=== PATIENT | female | born 1980 | race Caucasian/White ===

== ENCOUNTER → 2020-05-09 | Outpatient (CLI) | payer OTHER, SELFPAY ==
[2020-05-12 03:07] LABS: Chlamydia By Nucleic Acid AMP Negative (Negative)
[2020-05-12 13:53] LABS: Gonococcus By Nucleic Acid AMP Negative (Negative)
[2020-05-12 14:28] LABS: HPV Reflexed? NOT INDICATED
== END | disposition home or self-care (01) ==
LOC: LABSPEC 05-10 10:06
PROVIDERS: Visit Provider Obstetrics & Gynecology
DX: Z12.4 Encounter for screening for malignant neoplasm of cervix (principal); Z11.3 Encounter for screening for infections with a predominantly sexual mode of transmission
CPT/HCPCS: 87491; 87591; 88175; G0145

== ENCOUNTER 2020-08-11 02:12 | Outpatient (CLI) | payer OTHER, SELFPAY ==
[2020-08-11 02:30] VITALS: BP 127/76; PULSE 97
[2020-08-11 02:33] VITALS: BP 127/76; PULSE 101; TEMP 36.4; O2SAT 98
[2020-08-11 02:42] VITALS: BMI 23.8
[2020-08-11 03:15] LABS: Absolute Lymphocyte Count 0.77 X10^3/uL (0.83-4.51); Absolute Neutrophil Count 11.9 X10^3/uL (2.0-7.7); Basophil# 0.04 X10^3/uL; Basophil% 0.3 % (0-1); Eosinophil# 0.03 X10^3/uL; Eosinophils% 0.2 % (0-5); Hematocrit 27.8 % (37-47); Hemoglobin 9.4 g/dL (12.0-15.0); Lymphocyte # 0.77 X10^3/ul (4.0); Lymphocyte % 5.7 % (19-41); Mean Corp Hgb Conc 33.8 g/dL (32-36); Mean Corpuscular Hgb 30.6 pg (27.0-32.0); Mean Corpuscular Volume 90.6 fL (81-99); Monocyte% 5.9 % (0-10); NRBC Flagged by Analyzer 0 % (0-5); Neutrophil # 11.86 X10^3/uL (2.7-7.7); Neutrophil % 87.5 % (47-70); Platelet Count 285 K/mm3 (150-450); RBC Distribution Width CV 13.6 % (11.6-14.6); RBC Distribution Width SD 44.5 fl (35.1-43.9); Red Blood Count 3.07 M/mm3 (4.2-5.4); White Blood Count 13.6 K/mm3 (4.4-11.0)
[2020-08-11] MEDS: Lactated Ringers 1,000 ML 125 ML IV (03:30)
--- NOTE | 2020-08-11 04:28 | HP.PCM_ITS ---
History and Physical Date of Admission: 08/11/20 Complaint: Vaginal bleeding History of present illness: 39-year-old G1, P0 at 23 weeks and 2 days with MARIA DOLORES: 12/06/2020 by LMP arrives with vaginal bleeding. Patient has known multiple fibroids that have been bleeding throughout . Last ultrasound revealed degenerating fibroid. Patient states the bleeding has only slightly increased at times but mostly is consistent. Patient does have constant pressure and cramping that she has had throughout this with uterine fibroids. Denies dizziness, weakness. Denies headache, visual changes, nausea vomiting, chest pain, shortness of breath, right upper quadrant pain. Patient states good movement. Obstetrical complications: Fibroid uterus x5 with largest fibroid being 13 cm next largest fibroid being 9 cm with degenerating fibroid, baby with bilateral clubfeet, AMA Obstetric history G1: Current Past medical history: None Medications: None Past surgical history: Hearing aid placement Allergies: No known drug allergies Social: Denies smoking, alcohol, drug use Review of systems: Besides the above pertinent positives a full review of systems was performed and found to be negative Physical exam: Vital Signs Temp Pulse BP Pulse Ox 08/11/20 02:33 97.6 F L 101 H 127/76 H 98 08/11/20 02:30 97 127/76 H General: Normal-appearing no acute distress HEENT: Normocephalic atraumatic no cervical lymphadenopathy Cardiac: Regular rate and rhythm no murmurs rubs or gallops Respiratory: Clear to auscultation bilaterally no wheezes rales or crackles Abdomen: Palpable fibroid uterus measuring 31 weeks. Nontender, gravid. Positive bowel sounds no rebound tenderness or guarding. Pelvic: Normal external genitalia. Pelvic exam difficult with large fibroid pressing on the contours of the vagina. No palpable/fleshy fibroid or other signs of exposing fibroid noted. Cervix closed thick and high heart tones: 140/moderate variability/positive accelerations/early decelerations with few contractions [place]: Every 4 minutes Extremities: No peripheral edema normal peripheral pulses Psych: Normal affect normal demeanor nonpressured speech Mom's Labs & Results 08/11/20 08/11/20 03:05 03:05 WBC 13.6 H RBC 3.07 L Hgb 9.4 L Hct 27.8 L MCV 90.6 MCH 30.6 MCHC 33.8 RDW Std Deviation 44.5 H RDW Coeff of Jaciel 13.6 Plt Count 285 MPV 9.0 Immature Gran % (Auto) 0.400 Neut % (Auto) 87.5 H Lymph % (Auto) 5.7 L [place] % (Auto) 5.9 Eos % (Auto) 0.2 Baso % (Auto) 0.3 Absolute Neuts (auto) 11.9 H Absolute Lymphs (auto) 0.77 L Nucleated RBC % 0 Blood Type B POSITIVE Antibody Screen NEGATIVE Assessment and plan Is a 39-year-old G1, P0 at 23 weeks and 2 days with degenerating fibroid and vaginal bleeding. Overall vital signs stable but hemoglobin has decreased since initial labs not 9.4. Continues to have vaginal bleeding. Also having contractions likely secondary to bleeding, no signs of labor. Overall heart rate reassuring. Based on examination of mom and baby along with worsening vaginal bleeding patient need evaluation by [facility] for further discussion and treatment plan for stability. Patient has already seen MFM [facility] and discussed delivery at a tertiary center with likely and possible hysterectomy. Patient is at high risk for delivery, placenta accreta, hemorrhage, and surgical complications. Discussed these results with patient and patient elects to transport to tertiary center for further evaluation. Discussed with Dr. Brewer with [facility], agrees that the patient needs transport transported to tertiary center. Suggested [facility]. Transport scheduled, patient to be transported to [facility]. Started IV fluids, light to moderate amount of bleeding no need for transfusion prior to transport.
== END 2020-08-11 05:10 | disposition short-term general hospital (02) ==
LOC: WPOUT 02:25 → WP 02:26
PROVIDERS: Referring Provider Obstetrics & Gynecology; Visit Provider Obstetrics & Gynecology
DX: O34.12 Maternal care for benign tumor of corpus uteri, second trimester (principal); Z3A.23 23 weeks gestation of pregnancy; D25.9 Leiomyoma of uterus, unspecified
CPT/HCPCS: 36415; 85025; 86850; 86900; 86901; 99218; J7120; G0378

== ENCOUNTER → 2022-05-29 | Outpatient (CLI) | payer SELFPAY, OTHER ==
--- NOTE | 2022-05-29 15:36 | BI_ITS ---
MAMMOGRAPHY - BILATERAL SCREENING REASON FOR EXAM: Female, 41 years old. Routine annual screening examination. PERTINENT HISTORY: Non-contributory. TECHNIQUE: Digital bilateral breast patrice (3D mammographic acquisition) in the CC and MLO projections. 2-D mediolateral oblique (MLO) and craniocaudad (CC) views of both breasts were obtained. CAD: Full Field Digital Mammography with Computer Added Detection was performed. COMPARISON: None. Baseline examination. FINDINGS: Breast Composition: The breasts are extremely dense, which lowers the sensitivity of mammography. There are no dominant masses or suspicious calcifications. No other significant abnormalities are identified. BI/SCRN MAMM (CAD)W/PATRICE BILAT IMPRESSION: Negative screening mammogram. Yearly followup mammogram recommended. (A) ASSESSMENT CATEGORY: BIRADS Category 1: Negative. A letter regarding these results will be sent to the patient by the facility within 30 days. Approximately 10% of breast cancers are not detected by mammography. A normal mammogram should not delay biopsy of a clinically suspicious abnormality. [id number] Electronically Signed: Luis A Joy MD at 8:28 EDT ,
== END | disposition home or self-care (01) ==
PROVIDERS: PCP Family Medicine; Visit Provider Student in an Organized Health Care Education/Training Program
DX: Z12.31 Encounter for screening mammogram for malignant neoplasm of breast (principal)
CPT/HCPCS: 77063; 77067

== ENCOUNTER → 2025-08-02 | Outpatient (CLI) | payer SELFPAY, OTHER ==
--- NOTE | 2025-08-02 10:25 | BI_ITS ---
EXAM: SCRN MAMM (CAD)W/PATRICE BILAT DATE: 08/02/2025 CLINICAL HISTORY: F, Age 44 y/o , SCREEN No family history. TECHNIQUE: Procedure Code: [id number] Modality: MG Procedure: SCRN MAMM (CAD)W/PATRICE BILAT COMPARISON: Prior exam(s) dated May 29, 2022.. FINDINGS: TISSUE DENSITY: The breasts are extremely dense, which lowers the sensitivity of mammography. Bilateral Breast Mammographic Findings: Questionable 1.6 cm by 2 cm nodular density seen in the MLO view in the upper aspect of the breast. This is not definitely seen on the craniocaudad view. The patient will be recalled for additional views including 90 degree lateral and compression spot views. BI/SCRN MAMM (CAD)W/PATRICE BILAT IMPRESSION: Questionable nodular density in the left breast as described. The patient will be recalled for additional views. OVERALL FINAL ASSESSMENT BI-RADS 0: INCOMPLETE - NEED ADDITIONAL IMAGING EVALUATION. RECOMMENDATION: Additional Views obtained/call backs Additional Recommendation none A letter with findings and recommendations will be mailed to the patient. Reading Location: [id number]
--- OUTSIDE RECORDS SUMMARY | 2025-08-02 11:39 | XMS RPT_ITS | CCD ---
Author Organization [facility] Care Team Providers Care Hand Pleater Name Role Phone Unavailable Primary Care Provider UnavailJewel Valencia Primary Care Provider [phone] Jewel Armstrong Primary Care Provider UnavailCODIE Paula Primary Care Unavailable CODIE NOVAK Consulting Unavailable CODIE NOVAK Attending Unavailable CODIE NOVAK Admitting Unavailable PROVIDER, UNKNOWN Consulting Unavailable CODIE NOVAK Primary Care Unavailable CODIE NOVAK Consulting Unavailable CODIE NOVAK Attending Unavailable CODIE NOVAK Admitting Unavailable PROVIDER, UNKNOWN Consulting Unavailable Kaushik Davidson MD Unavailable Wilman CARR, Dr. Kaushik Ragland Unavailable Jose Carlos ZELAYAN, Mary Unavailable Dameon Olson MD Unavailable Robert ARAUJO, Anne Unavailable Unavailable Jewel Armstrong MD Unavailable Lazaro ZELAYAN, Lucio Unavailable Unavailable Codie Novak PA-C Unavailable Bettye ARAUJO, Nupur Ragland Unavailable Unavailab christina Roper CNM, Crystal K Unavailable Unavailable Unavailable Codie Novak PA-C Unavailable [phone] Arlene Fleming NP Referring Unavailable Arlene Fleming NP Attending Unavailable Kaushik Davidson Primary Care Unavailable Medications Current Medications Medication Drug Class(es) Dates Sig (Normalized) Sig (Original) acetaminophen 500 mg oral tablet (5 sources) Start: 11-09-2020 take 2 tablets by mouth every six hours as needed for pain acetaminophen (TYLENOL) 500 MG tablet Take 2 tablets by mouth every 6 hours as needed for Pain 60 tablet 1 11/09/2020 Active Start: 11-08-2020 End: 11-09-2020 take 2 tablets by mouth every six hours as needed for pain acetaminophen (TYLENOL) 500 MG tablet Take 2 tablets by mouth every 6 hours as needed for Pain 60 tablet 1 11/08/2020 11/09/2020 Discontinued (REORDER) Start: 11-08-2020 take 1000 mg by mout h every six hours, then take 4000 mg by mouth every twenty-four hours 1,000 mg, Oral, EVERY 6 HOURS, First dose on Fri11/08/20 at 1900 Maximum dose of acetaminophen is 4000 mg from all sources in 24 hours. Post-op Start: 08-13-2020 take 650 mg by mouth every six hours as needed for pain, then take 4000 mg by mouth every twenty-four hours as needed for pain 650 mg, Oral, EVERY 6 HOURS PRN, Pain Mild (1-3), Starting 08/13/20 at 0048 Maximum dose of acetaminophen is 4000 mg from all sources in 24 hours. [place] Juice Powder (2 sources) Start: 08-13-2020 [place] Ju ice Powder Start: 08-12-2020 End: 08-13-2020 [place] Juice Powder busPIRone hydrochloride 5 mg oral tablet (2 sources) Start: 04-07-2024 busPIRone 5 mg tablet ; 1 Tablet in am and 1 tab in PM for 0 days Quantity: 180 {Tablet} Refills: 3 Ordered: 07-Apr-2024 TRACY Novak Start: 07-Apr-2024 Start: 08-05-2023 busPIRone 5 mg tablet ; 2 (two) Tablet in am and 1 tab in PM for 0 days Quantity: 90 {Tablet} Refills: 5 Ordered: 05-Aug-2023 TRACY Novak Start: 05-Aug-2023 Composure Neuro Health supplement (2 sources) Start: 08-13-2020 Composure Neur o Health supplement Start: 08-12-2020 End: 08-13-2020 Composure Neuro Health suppl ement 1 ml diphenhydrAMINE hydrochloride 50 mg/ml cartridge (1 source) Histamine-1 Receptor Antagonist Start: 08-13-2020 25 mg, Intravenous, EVERY 6 HOURS PRN, Itching, Hives, Starting 08/13/20 at 0048, docusate sodium 100 mg oral capsule (8 sources) Start: 11-09-2020 take 1 capsule by mouth twice daily as needed for constipation docusate sodium (COLACE) 100 MG capsule Take 1 capsule by mouth 2 times daily as needed for Constipation 60 capsule 0 11/09/2020 Active Start: 08-13-2020 End: 11-09-2020 take 1 capsule by mouth twice daily as needed for constipation docusate sodium (COLACE, DULCOLAX) 100 MG CAPS Take 100 mg by mouth 2 times daily as needed for Constipation 180 capsule 0 08/16/2020 Active 0.4 ml enoxaparin sodium 100 mg/ml prefilled syringe (1 source) Low Molecular Weight Heparin Start: 08-13-2020 inject 40 mg by subcutaneous injection once daily 40 mg, Subcutaneous, DAILY, First dose on 08/13/20 at 0930, Herbal Fiberblend (2 sources) Start: 08-13-2020 Herbal Fiberblend Start: 08-12-2020 End: 08-13-2020 Herbal Fiberblend HYDROmorphone (DILAUDID) injection 0.25 mg (1 source) Start: 08-13-2020 HYDROmorphone (DILAUDID) injection 0.25 mg ibuprofen 600 mg oral tablet (8 sources) Nonsteroidal Anti-inflammatory Drug Start: 11-09-2020 take 1 tablet by mouth every six hours ibuprofen (ADVIL;MOTRIN) 600 MG tablet Take 1 tablet by mouth every 6 hours 60 tablet 0 11/09/2020 Active Start: 08-14-2020 End: 11-09-2020 take 1 tablet by mouth every six hours ibuprofen (ADVIL;MOTRIN) 600 MG tablet Take 1 tablet by mouth every 6 hours 120 tablet 3 08/16/2020 Active lansinoh lanolin ointment (1 source) Start: 08-13-2020 Topical, EVERY 1 HOUR PRN, Dry Skin, nipple discomfort, Starting 08/13/20 at 0048, ondansetron (ZOFRAN-ODT) disintegrating tablet 4 mg (1 source) Start: 11-08-2020 ondansetron (Z OFRAN-ODT) disintegrating tablet 4 mg oxyCODONE hydrochloride 5 mg oral tablet (6 sources) Opioid Agonist Start: 11-08-2020 oxyCODONE (ANDREW ICODONE) immediate release tablet 5 mg Start: 11-08-2020 End: 11-14-2020 take 1 tablet by mouth every six hours as needed for pain, then take 1 tablet by mouth as needed for pain oxyCODONE (ROXICODONE) 5 MG immediate release tablet Indications: Post-op pain Take 1 tablet by mouth every 6 hours as needed for Pain for up to 5 days. Intended supply: 3 days. Take lowest dose possible to manage pain 18 tablet 0 11/09/2020 11/14/2020 Active Start: 08-16-2020 End: 08-19-2020 take 1 tablet by mouth every six hours as needed for pain oxyCODONE (ROXICODONE) 5 MG immediate release tablet Indications: S/P section Take 1 tablet by mouth every 6 hours as needed for Pain for up to 3 days. 20 tablet 0 08/16/2020 08/19/2020 Active Start: 08-13-2020 oxyCODONE (ANDREW ICODONE) immediate release tablet 5 mg oxytocin (PITOCIN) 10 unit bolus from the bag (1 source) Start: 08-12-2020 166.7 mL (roun ded from 166.6667 mL = 10 Units), Intravenous, CONTINUOUS, Starting 08/12/20 at 2230 Bolus should have been given in the immediate phase of care. Please verify. Prenatabs FA (1 source) Start: 08-11-2020 take 1 tablet by mouth once daily Prenatabs FA Active 1 TABLET PO DAILY August 11, 2020 1:00am vitamin 27-1 MG tablet 1 tablet (1 source) Start: 08-13-2020 take 1 tablet by mouth once daily 1 tablet, Oral, DAILY, First dose on 08/13/20 at 0900 Begin when normal bowel activity resumes. simethicone 80 mg chewable tablet (2 sources) Start: 11-08-2020 take 80 mg by mouth every six hours as needed 80 mg, Oral, EVERY 6 HOURS PRN, Cramping, Starting 11/08/20 at 1838 Start: 08-13-2020 take 80 mg by mouth every six hours as needed 80 mg, Oral, EVERY 6 HOURS PRN, Cramping, Flatulence, Starting 08/13/20 at 0048, 3 ml sodium chloride 9 mg/ml injection (6 sources) Start: 11-08-2020 10 mL, Intrave nous, EVERY 12 HOURS SCHEDULED (2 times per day), First dose on Fri11/08/20 at 2100, Post-op Start: 11-08-2020 take 10 mL intravenous route o nce 10 mL, Intravenous, PRN, Line Care, Starting Fri11/08/20 at 1838 After every IV line use Post-op Start: 08-12-2020 End: 08-12-2020 0.9 % sodium chloride bolus Start: 08-12-2020 End: 08-13-2020 0.9 % sodium chloride infusi on Start: 08-11-2020 End: 08-13-2020 10 mL, Intravenous, EVERY 12 HOURS SCHEDULED (2 times per day), First dose on Fri08/11/20 at 0900 Start: 08-11-2020 End: 08-13-2020 take 10 mL intravenous route once as needed 10 mL, Intravenous, PRN, Line Care, After every IV line use, Starting Fri08/11/20 at 0640 Completed/Discontinued Medications Medication Drug Class(es) Dates Sig (Normalized) Sig (Original) betamethasone 3 mg/ml / betamethasone acetate 3 mg/ml injectable suspension (2 sources) Corticosteroid Start: 08-11-2020 End: 08-11-2020 betamethasone acetate-betamethason e sodium phosphate (CELESTONE) injection 12 mg Start: 08-11-2020 End: 08-11-2020 betamethasone acetate-betame thasone sodium phosphate (CELESTONE) injection 12 mg calcium chloride 0.0014 meq/ ml / potassium chloride 0.004 meq/ml / sodium chloride 0.103 meq/ml / sodium lactate 0.028 meq/ml injectable solution (4 sources) Start: 11-08-2020 End: 11-08-2020 lactated ringers infusion Start: 08-12-2020 End: 08-12-2020 lactated ringers infusion Start: 08-11-2020 End: 08-12-2020 Intravenous, at 100 mL/hr, C ONTINUOUS, Starting Fri08/11/20 at 0700 calcium gluconate 1 g in dextrose 5 % 100 mL IVPB (1 source) Start: 08-13-2020 End: 08-13-2020 calcium gluconate 1 g in dextrose 5 % 100 mL IVPB ceFAZolin 2000 mg injection (3 sources) Cephalosporin Antibacterial Start: 08-12-2020 End: 08-13-2020 ceFAZolin (ANCEF) 2 g in dextrose 4 % 100 mL IVPB (premix) Start: 08-12-2020 End: 08-12-2020 2 g, Intravenous, EVERY 8 HO URS, First dose on 08/12/20 at 2230, Until Discontinued Start: 08-12-2020 End: 08-12-2020 ceFAZolin (ANCEF) 2-4 GM/100 ML-% IVPB (premix) SOLN citric acid 66.8 mg/ml / sodium citrate 100 mg/ml oral solution (2 sources) Calculi Dissolution Agent, Anti-coagulant Start: 08-12-2020 End: 08-12-2020 citric acid-sodium citrate (BICITRA) solution 30 mL Start: 08-11-2020 End: 08-12-2020 citric acid-sodium citrate ( BICITRA) 500-334 MG/5ML solution clotrimazole 10 mg/ml topical cream (2 sources) Azole Antifungal Start: 06-01-2021 End: 06-29-2021 Clotrimazole 1 % External Cream ; 1 (one) Application twice a day for 28 days Quantity: 45 {Gram} Refills: 0 Ordered: 01-Jun-2021 LYLY Roper Crystal K Start: 01-Jun-2021 End: 29-Jun-2021 Status: Inactive Comments: good rx: fatmata yo, group radha, Comment on above: good rx: fatmata yo, group radha, famotidine 20 mg oral tablet (1 source) Histamine-2 Receptor Antagonist Start: 11-08-2020 End: 11-08-2020 famotidine (PEPCID) tablet 20 mg Start: 11-08-2020 End: 11-08-2020 famotidine (PEPCID) tablet 2 0 mg 2 ml fentaNYL 0.05 mg/ml injection (1 source) Opioid Agonist Start: 11-08-2020 End: 11-08-2020 fentaNYL (SUBLIMAZE) injection 25 mcg ferrous sulfate 325 mg oral tablet (5 sources) Start: 08-17-2020 take 1 tablet by mouth twice daily at mealtime ferrous sulfate (IRON 325) 325 (65 Fe) MG tablet Take 1 tablet by mouth 2 times daily (with meals) 30 tablet 3 08/17/2020 Suspended Start: 08-17-2020 take 1 tablet by elli twice daily at mealtime ferrous sulfate (IRON 325) 325 (65 Fe) MG tablet Take 1 tablet by mouth 2 times daily (with meals) 30 tablet 3 08/17/2020 Active Start: 08-13-2020 take 325 mg by mouth twice daily at mealtime 325 mg, Oral, 2 TIMES DAILY WITH MEALS, First dose on 08/13/20 at 0800 Start if Hgb less than 10. ivermectin 3 mg oral tablet (2 sources) Antiparasitic, Pediculicide Start: 08-02-2017 End: 05-14-2021 take 4 tablets by mouth every week Ivermectin 3 MG Oral Tablet ; 4 Tablet now, repeat in one week for 0 days Quantity: 8 {Tablet} Refills: 0 Ordered: 14-May-2021 VAN Branch Start: 02-Aug-2017 End: 14-May-2021 Status: Inactive 1 ml ketorolac tromethamine 30 mg/ml cartridge (3 sources) Nonsteroidal Anti-inflammatory Drug, Cyclooxygenase Inhibitor Start: 11-08-2020 End: 11-08-2020 ketorolac (TORADOL) injection 30 mg Start: 08-13-2020 End: 08-14-2020 30 mg, Intravenous, EVERY 6 HOURS, First dose on 08/13/20 at 0115, For 24 hours Do not administer for more than 5 days. First dose should be administered 6 hours after anesthesia's administered dose in OR or PACU. Do NOT give with ibuprofen. Start: 08-12-2020 End: 08-12-2020 60 mg, Intramuscular, ONCE, 08/12/20 at 2230, For 1 dose Do not administer for more than 5 days. 100 ml magnesium sulfate 40 mg/ml injection (2 sources) Start: 08-11-2020 End: 08-11-2020 magnesium sulfate 4 g in 100 mL IVPB premix Start: 08-11-2020 End: 08-13-2020 magnesium sulfate (20 G/500 mL) infusion NONFORMULARY (8 sources) NONFORMULARY 4 c apsules daily Barley Life 0 Suspended NONFORMULARY Andrew e by mouth daily Aloe Vera Gel 2 Tablespoons daily 0 Suspended take 2 capsules by mouth twice d aily NONFORMULARY Take 2 capsules by mouth 2 times daily Composure 0 Suspended NONFORMULARY 2 c apsules daily AI Damir Oil 0 Suspended NONFORMULARY 4 c apsules daily Barley Life 0 Active NONFORMULARY 2 c apsules daily AI Damir Oil 0 Active take 2 capsules by mouth twice d aily NONFORMULARY Take 2 capsules by mouth 2 times daily Composure 0 Active NONFORMULARY Andrwe e by mouth daily Aloe Vera Gel 2 Tablespoons daily 0 Active 2 ml ondansetron 2 mg/ml injection (2 sources) Serotonin-3 Receptor Antagonist Start: 11-08-2020 End: 11-08-2020 ondansetron (ZOFRAN) injection 4 mg Start: 08-13-2020 4 mg, Intraven ous, EVERY 6 HOURS PRN, Nausea, Starting 08/13/20 at 0048, oxytocin (PITOCIN) 30 units in 500 mL infusion Override Pull (1 source) Start: 08-11-2020 End: 08-12-2020 oxytocin (PITOCIN) 30 units in 500 mL infusion Override Pull [id number] (PRENA1 PO) (4 sources) take 1 capsule by mouth once daily [id number] (PRENA1 PO) Take 1 capsule by mouth daily 0 Suspended take 1 capsule by mouth once afsaneh ly [id number] (PRENA1 PO) Take 1 capsule by mouth daily 0 Active 1 ml promethazine hydrochloride 25 mg/ml injection (1 source) Phenothiazine Start: 11-08-2020 End: 11-08-2020 promethazine (PHENERGAN) injection 6.25 mg Problems Active Problems Problem Classification Problem Date Documented Date Episodic/Chronic Administrative/social admission (4 sources) Family history of sudden ; Translations: [Disappearance and of family member] 11-18-2022 Episodic Anxiety disorders (9 sources) Anxiety; Translations: [Anxiety disorder, unspecified] 02-03-2023 Chronic Benign neoplasm of uterus (7 sources) Intramural leiomyoma of uterus; Translations: [Uterine leiomyoma] Onset: 08-13-2020 08-13-2020 Episodic Heart valve disorders (2 sources) Mitral valve prolapse; Translations: [Nonrheumatic mitral (valve) prolapse] 04-07-2024 Chronic Nonmalignant breast conditions (4 sources) Mastodynia; Translations: [Mastodynia] 11-15-2022 Episodic Comment on above: concerned for yeast, has changed flange size on pump and started using lanolin cream with good results Nonspecific chest pain (6 sources) Chest pain; Translations: [Chest pain, unspecified] 11-25-2022 Episodic Other and unspecified benign neoplasm (2 sources) Leiomyoma; Translations: [Fibroid] 11-09-2020 Episodic Other complications of ; puerperium affecting management of mother (5 sources) hemorrhage; Translations: [ hemorrhage] Onset: 08-13-2020 08-13-2020 Episodic Other complications of ; puerperium affecting management of mother (4 sources) Obstetric nipple infection with complication; Translations: [Infection of nipple associated with the puerperium] 11-15-2022 Episodic Other ear and sense organ disorders (2 sources) Hearing loss 11-15-2022 Chronic Comment on above: left ear Other infections; including parasitic (2 sources) H/O: chickenpox; Translations: [Personal history of other infectious and parasitic diseases] 11-15-2022 Episodic Comment on above: childhood Other infections; including parasitic (4 sources) Infestation by Sarcoptes scabiei lynda hominis; Translations: [Scabies] 08-02-2017 Episodic Other nervous system disorders (1 source) Postoperative pain ; Translations: [Post-op pain] Episodic Other screening for suspected conditions (not mental disorders or infectious disease) (5 sources) Patient encounter status; Translations: [Encounter for screening for lipoid disorders] Onset: 07-29-2025 03-24-2024 Episodic Other skin disorders (2 sources) Abdominal mass; Translations: [Localized swelling, mass and lump, trunk] 10-31-2016 Episodic Residual codes; unclassified (5 sources) H/O: section; Translations: [S/P section] Onset: 08-13-2020 08-13-2020 Episodic Residual codes; unclassified (2 sources) H/O: hysterectomy; Translations: [S/P laparoscopic hysterectomy] Onset: 11-08-2020 11-08-2020 Episodic Residual codes; unclassified (4 sources) Family history of cardiac disorder; Translations: [Family history of ischemic heart disease and other diseases of the circulatory system] 11-18-2022 Episodic Unclassified (2 sources) Number of Pregnancies 05-23-2021 Comment on above: 0. Past or Other Problems Problem Classification Problem Date Documented Date Episodic/Chronic Early or threatened labor (5 sources) Premature delivery; Translations: [ delivery] Onset: 08-13-2020 Resolved: 08-16-2020 08-16-2020 Episodic Other female genital disorders (5 sources) Vaginal bleeding; Translations: [Vaginal bleeding] Onset: 08-11-2020 Resolved: 08-15-2020 08-15-2020 Episodic Unclassified (2 sources) Anxiety - The onset of the anxiety has been gradual and has been occurring in an intermittent pattern for years. The course has been increasing. The anxiety is characterized as apprehension. Precipitating factors include specific circumstances. The symptoms have been associated with chest pain. Note for Anxiety: Pt has had a lot of loss in the past 4 years. Is having some chest pain and tightness. Pt had hysterectomy 2020 and thinks this could also be part of her sx. Feels like back goes out - central upper back, between shoulder blades. Had a massage last week and was told she is super tight across upper body.Anxiety is worse in the evenings.Sometimes can go days without feeling anxious. Triggered by hearing bad news/deaths.Daughter was born at 23 weeks 5 days and spent 5 months in the NICU - came home January 2021. Just quit requiring home O2 recently. Things have been more normal for the past 6 months. Pt has history of anemia.Has restless legs - heather after getting massage.Low energy x 6 months.Dad with aortic valve replacement at age 65 --- others on his side of family also with this. Brother unexpectedly - details unknown but apparently he had been having some SOB and then played [employer] and complained of heartburn and . 11-18-2022 Unclassified (2 sources) Breast pain - The breast pain is in both breasts. The onset of the breast pain has been gradual and has been occurring in a persistent pattern for 5 months. The course has been decreasing. Note for Breast pain: Been pumping for preemie baby. Recently started using a smaller flange for pump and noticing improvement as well as lanolin now. 05-23-2021 Unclassified (2 sources) Follow up diagnostic procedure results - Diagnostic tests performed on : (10/31/2016) include ultrasound (pelvic). Follow up visit with no current symptoms. 11-08-2016 Unclassified (2 sources) Lump - Patient complains of a lump in her left lower quadrant. She has noticed it for at least 10-15 years. It changes in size. It is not painful. Patient notices it seems to be larger around her period. Patient denies any urinary symptoms, nausea, vomiting, diarrhea or constipation. 10-31-2016 Unclassified (1 source) Anxiety - Note for Anxiety: Pt is here to f/u on her anxiety. She has been taking the buspar BID and doing well on this dose.Continues to go to [facility]. Was doing well in the fall that she questioned if she needed to continue it but then things got worse in September with loss of family and stress of daughter's daughter that she was glad she had it. Does have ongoing upper back issues. Questions if she might have a hiatal hernia. Adjustments only help for a period of time. 04-07-2024 Results Test Name Value Interpretation Reference Range Facility CBC + DIFFon 11-26-2022 Baso # 0.00 x10EE3/UL Normal 0.00 - 0.10 [facility] Comment on above: Performed By: #### 2 [id number] #### [place] [address] Basophils/100 WBC (Bld) 0.3 % Normal 0.0 - 2.0 % [facility] Comment on above: Performed By: #### 2 [id number] #### [facility],[address] [place] [address] CBC + DIFF Normal [facility] Comment on above: Result Comment: CBC- COMPLETE BLOOD COUNT Performed By: #### 2 [id number] #### [facility],[address] [place] [address] EO # 0.00 x10EE3/UL Normal 0.00 - 0.50 [facility] Comment on above: Performed By: #### 2 11508 #### [facility] [place] [address] Eosinophils/100 WBC (Bld) 0.6 % Normal 0.0 - 7.0 % [facility], [facility].; [facility], [facility]. Comment on above: Performed By: #### 2 [id number] #### [place] [address] Erythrocyte distribution width (RBC) [Ratio] 13.2 % Normal 12.0 - 15.6 % [facility], [facility].; [facility] Comment on above: Performed By: #### 2 [id number] #### [place] [address] Hematocrit (Bld) [Volume fraction] 41.8 % Normal 34.0 - 46.0 % [facility], [facility].; [facility] Comment on above: Performed By: #### 2 [id number] #### [place] [address] Hemoglobin (Bld) [Mass/Vol] 14.5 g/dL Normal 12.0 - 16.0 g/dL [facility], [facility].; [facility], [facility]. Comment on above: Performed By: #### 2 [id number] #### [place] [address] Lymph # 1.50 x10EE3/UL Normal 0.80 - 2.80 [facility] Comment on above: Performed By: #### 2 78638 #### [place] [address] Lymphocytes/100 WBC (Bld) 18.3 % Abnormal 20.0 - 45.0 % [facility], [facility].; [facility] Comment on above: Performed By: #### 2 [id number] #### [place] [address] MANUAL DIFF N/A Normal [facility], [facility].; [facility] Comment on above: Performed By: #### 2 [id number] #### [place] [address] MCH (RBC) [Entitic mass] 30 pg Normal 27 - 33 pg [facility].; [facility]. Comment on above: Performed By: #### 2 [id number] #### [facility],[address] [place] [address] MCHC 35 X10 3 Normal 32 - [address] [facility] Comment on above: Performed By: #### 2 [id number] #### [place] [address] MCV (RBC) [Entitic vol] 87 fL Normal 80 - 99 fL [facility].; [facility] Comment on above: Performed By: #### 2 [id number] #### [place] [address] [place] # 0.40 x10EE3/UL Normal 0.20 - 1.00 [facility] Comment on above: Performed By: #### 2 [id number] #### [place] [address] MONOS % 5.2 % Normal 0.0 - 10.[address] [facility] Comment on above: Performed By: #### 2 [id number] #### [place] [address] Morphology Luigi (Bld) [Interp] N/A Normal [facility].; [facility]. Comment on above: Performed By: #### 2 [id number] #### [place] [address] Neut # 6.30 x10EE3/UL Normal 1.50 - 7.10 [facility] Comment on above: Performed By: #### 2 58730 #### [place] [address] Neutrophils/100 WBC (Bld) 75.6 % Normal 46.0 - 76.0 % [facility].; [facility], [facility]. Comment on above: Performed By: #### 2 [id number] #### [facility],[address] [place] [address] PLATELET 312 x10EE3/UL Normal 150 - 450 [facility] Comment on above: Performed By: #### 2 [id number] #### [facility],[address] [place] [address]99 Platelet mean volume (Bld) [Entitic vol] 7.5 fL Normal 6.6 - 10.5 fL [facility], [facility].; [facility], [facility]. Comment on above: Result Comment: AUTO MATED DIFFERENTIAL Performed By: #### 2 [id number] #### [facility],[address] [place] [address] RBC 4.78 x 10EE6/UL Normal 4.10 - 5.30 [facility] Comment on above: Performed By: #### 2 [id number] #### [facility],[address] [place] [address]1600 WBC 8.3 x 10EE3/UL Normal 4.5 - 10.8 [facility] Comment on above: Performed By: #### 2 [id number] #### [facility],[address] [place] [id number] CV ECHO COMPLETE CV ECHO COMPLETE [place] [address] Patient: CYNTHIA MOLINA Phone#: : [phone] Age: 41 Gender: F Pt. Type: Out Account: [id number] Location: Ordering: CODIE NOVAK Exam Date: 11/26/2022/10:37 Family Phys: Charge Code: 653197 Physician: Fallon Order #: [id number] Dose#: PROCEDURE: ECHOCARDIOGRAM WITH DOPPLER AND COLOR FLOW HISTORY: Patient is a 41-year-old female with history of aortic valve disorder INDICATIONS: FAM HX AORTIC VALVE DISORDER COMPARISON: None. TECHNIQUE: A 2-D ultrasound, color spectral Doppler and M-mode evaluation of the heart and great vessels. PATIENT MEASUREMENTS: Height (in.): 66 BSA: 1.7 Weight (lbs.): 135 BP: 108/77 [employer] Counter Clerk: CHASTITY M MODE 2D MEASUREMENTS AND CALCULATIONS: LVIDd: 4.44 cm LVIDs: 2.12 cm IVSd: 0.90 cm LVPWd: 0.87 cm LVOT diam: 2.2 cm FS: 52.27 % Ao Root diam: 2.74 cm LA diam: 3.3 cm LA Volume Index: 21 mL/m2 LA A4 Area: 15.75 cm2 RA A4 Area: 13.3 cm2 RVDd: 3.12 cm TAPSE: 19 mm DOPPLER MEASUREMENTS AND CALCULATIONS MITRAL MV E MAX ladonna: 0.59 m/s MV A MAX ladonna: 0.52 m/s MV E-A ratio: 1.15 Lat Peak E' Ladonna 12 cm/sec Septal Peak E' LADONNA 11 cm/sec E/E' lateral 5 E/E' medial 3 Continued Report - Page 2 of 3 Patient: CYNTHIA MOLINA Phone#: : 1980 Age: 41 Gender: F Pt. Type: Out Account: [id number] Location: Ordering: CODIE NOVAK Exam Date: 11/26/2022/10:37 Family Phys: Charge Code: [id number] Physician: Fallon Order #: [id number] Dose#: AORTIC Ao V2 max: 1.14 m/s Ao max P.21 mm[Hg] LV V1 Max 1.01 m/s LV V1 Max PG 4.07 mm[Hg] PULMONIC PA V2 Max 0.84 m/s PA Max PG 2.79 mm[Hg] TRICUSPID TR Max Ladonna 1.92 m/s TR max PG 15.17 mm[Hg] RVSP 18 mm Hg 2D/M-MODE AND COLOR FLOW LEFT VENTRICLE: Left ventricle is normal in size and thickness. Systolic ejection fraction is 55-60%. There are no regional wall motion abnormality seen. Diastolic function is normal. WALL MOTION: 1 - Basal anterior: Normal. 7 - Mid anterior: Normal. 13 - Apical anterior: Normal. 2 - Basal anteroseptal: Normal. 8 - Mid anteroseptal: Normal. 14 - Apical septal: Normal. 3 - Basal inferoseptal: Normal. 9 - Mid inferoseptal: Normal. 15 - Apical inferior: Normal. 4 - Basal inferior: Normal. 10-Mid inferior: Normal. 16 - Apical lateral: Normal. 5 - Basal inferolateral: Normal. 11-Mid inferolateral: Normal. 6 - Basal anterolateral: Normal. 12-Mid anterolateral: Normal. RIGHT VENTRICLE: Right ventricle is normal in size and systolic function LEFT ATRIUM: Left atrium is normal in size. RIGHT ATRIUM: Right atrium is normal in size. ATRIAL SEPTUM: There is no large interatrial shunt seen. PFO was not assessed. MITRAL VALVE: There is mild mitral valve prolapse seen. There is trivial regurgitation and no stenosis seen. TRICUSPID VALVE: Tricuspid valve appears normal in structure. There is trivial regurgitation and no stenosis seen. AORTIC VALVE: Aortic valve is trileaflet. There is no regurgitation or stenosis seen PULMONIC VALVE: Pulmonic valve is normal in structure. There is trivial regurgitation and no stenosis seen. AORTIC ROOT: Aortic root is normal in size. AORTIC ARCH: Inadequately visualized DESC THORACIC AORTA: Inadequately visualized IVC/SVC: IVC is normal in size with more than 50% collapse of inspiration. Estimated right atrial pressure is 3 mm Hg. PULMONARY VEINS: There is normal pulmonic vein flow PERICARDIUM: There is no pericardial effusion seen Continued Report - Page 3 of 3 Patient: CYNTHIA MOLINA Phone#: : 1980 Age: 41 Gender: F Pt. Type: Out Account: [id number] Location: Ordering: [facility] Exam Date: 11/26/2022/10:37 Family Phys: Charge Code: [id number] Physician: Fallon Order #: [id number] Dose#: CONCLUSION: 1. Left ventricle is normal in size and thickness. Systolic ejection fraction 55-60% with normal wall motion. 2. There are no significant valvular dysfunction seen 3. Aortic valve is trileaflet. 4. Right ventricle is normal in size and systolic function 5. Aortic root is normal in size. 6. Estimated right ventricular systolic pressure is 18 mm Hg. Dictated by: JUVE CHAMBERS MD on 11/28/2022 at 10:07 Approved by: JUVE CHAMBERS MD on 11/28/2022 at 10:[address] [facility] LIPID PROFILEon 11-26-2022 Cholesterol [Mass/Vol] 242 mg/dL Abnormal 0 - 240 mg/dL [facility].; [facility], [facility]. Comment on above: Performed By: #### 2 [id number] #### [facility],[address] [place] [address] Cholesterol in HDL [Mass/Vol] 59 mg/dL Normal 40 - [address] [facility] Comment on above: Performed By: #### 2 [id number] #### [facility],[address] [place] [address] Cholesterol in LDL [Mass/Vol] 173 mg/dL Abnormal 0 - 129 mg/dL [facility], [facility].; [facility], [facility]. Comment on above: Performed By: #### 2 83973 #### [address] [address] Cholesterol.total/Ch olesterol in HDL [Mass ratio] 4.1 {ratio} Normal 0.0 - 5.0 [facility].; [facility], [facility]. Comment on above: Performed By: #### 2 95146 #### [facility],[address] [place] [address] Lipid 1996 panel Normal [facility] Comment on above: Result Comment: LIPI D PROFILE Performed By: #### 2 38606 #### [address] [address] Triglyceride [Mass/Vol] 48 mg/dL Normal 0 - 150 mg/dL [facility], [facility].; [facility] Comment on above: Performed By: #### 2 13467 #### [address] [address] Laboratory - Chemistry and C hemistry - challengeon 11-26-2022 Cholesterol in HDL [Mass or moles/Vol] 59 mg/dL Normal 40 - 60 mg/dL [facility], [facility].; [facility] Lipid 1996 panel LIPID PROFILE Normal [facility], [facility].; [facility] [email or web address], [facility]. Laboratory - Hematology and Cell countson 11-26-2022 Basophils (Bld) [#/Vol] 0.00 {3/UL} Normal 0.00 - 0.10 {3/UL} [facility] [email or web address] [employer] CBC W Auto Differential panel (Bld) CBC + DIFF Normal [facility].; [facility] Eosinophils (Bld) [#/Vol] 0.00 {3/UL} Normal 0.00 - 0.50 {3/UL} [facility] [email or web address] [employer] Lymphocytes (Bld) [#/Vol] 1.50 {3/UL} Normal 0.80 - 2.80 {3/UL} [facility] [place] [email or web address] [employer] MCHC (RBC) [Mass/Vol] 35 {X10_3} Normal 32 - 36 {X10_3} [facility], [facility].; [place] [email or web address] [employer] Monocytes (Bld) [#/Vol] 0.40 {3/UL} Normal 0.20 - 1.00 {3/UL} [facility] [email or web address] [employer] [place] [email or web address] Monocytes/100 WBC (Bld) 5.2 % Normal 0.0 - 10.0 % [place] [facility] [facility], [facility].; [place] [email or web address] [employer] Neutrophils (Bld) [#/Vol] 6.30 {3/UL} Normal 1.50 - 7.10 {3/UL} [facility] [email or web address] [employer] Platelets (Bld) [#/Vol] 312 {3/UL} Normal 150 - 450 {3/UL} [facility] [email or web address] [employer] RBC (Bld) [#/Vol] 4.78 {6/UL} Normal 4.10 - 5.3 0 {6/UL} [email or web address] [employer] [place] [email or web address] [employer] WBC (Bld) [#/Vol] 8.3 {3/UL} Normal 4.5 - 10.8 {3/UL} [facility] [email or web address] [employer] Laboratory - Chemistry and C hemistry - challengeon 11-18-2022 Albumin [Mass/Vol] 4.5 g/dL Normal 3.6 - 5.1 g/dL [facility]; [facility], [facility] Albumin/Globulin [Mass ratio] 1.6 {ratio} Normal 1.0 - 2.5 [facility].; [facility], [facility] ALP [Catalytic activity/Vol] 43 U/L Normal 31 - 125 U/L [facility].; [facility], [facility]. ALT [Catalytic activity/Vol] 12 U/L Normal 6 - 29 U/L [facility].; [facility], [facility] AST [Catalytic activity/Vol] 12 U/L Normal 10 - 30 U/L [facility].; [facility], [facility] Bilirubin [Mass/Vol] 0.8 mg/dL Normal 0.2 - 1 .2 mg/dL [facility].; [facility], [facility] Calcium [Mass/Vol] 9.4 mg/dL Normal 8.6 - 10. 2 mg/dL [facility], [facility].; [facility], [facility] Chloride [Moles/Vol] 106 mmol/L Normal 98 - 11 0 mmol/L [facility]; [facility], [facility]. CO2 [Moles/Vol] 26 mmol/L Normal 20 - 32 mmol/L [facility], [facility].; [facility], [facility] Creatinine [Mass/Vol] 0.77 mg/dL Normal 0.50 - 0.99 mg/dL [facility], [facility].; [facility], [facility]. Ferritin [Mass/Vol] 75 ng/mL Normal 16 - 154 ng/mL [facility], [facility].; [facility], [facility]. GFR/1.73 sq M.predicted among non-blacks MDRD (S/P/Bld) [Vol rate/Area] 100 mL/min/{1.73_m2} Normal [facility], [facility].; [facility] Glucose [Mass/Vol] 100 mg/dL Abnormal 65 - 99 mg/dL [facility].; [facility] Potassium [Moles/Vol] 4.4 mmol/L Normal 3.5 - 5.3 mmol/L [facility]; [facility] Protein [Mass/Vol] 7.3 g/dL Normal 6.1 - 8.1 g/dL [facility]; [facility] Sodium [Moles/Vol] 141 mmol/L Normal 135 - 146 mmol/L [facility]; [facility] Urea nitrogen [Mass/Vol] 11 mg/dL Normal 7 - 25 mg/dL [facility]; [facility] No Panel Informationon 11-18 BUN/CREATININE RATIO NOT APPLICABLE Normal 6 - 22 [facility]; [facility] GLOBULIN 2.8 Normal 1.9 - 3.7 [facility]; [facility] IRON, TOTAL 141 ug/dL Normal 40 - 190 ug/dL [facility]; [facility] TSH W/REFLEX TO FT4 3.84 {mIU/L} Normal [facility]; [facility] WHITE BLOOD CELL COUNT Normal [facility]; [facility] HCG,Urine Qualon 11-08-2020 Beta HCG ( test) Ql (U) Negative Normal Negative [facility] Comment on above: Result Comment: Preg indigo is the most common reason for HCG in urine, although choriocarcinoma, hydatidiform mole, and certain nontropho- blastic malignancies also result in detectable urinary HCG levels. Sensitivity = 20mIU/mL. Performed By: #### H EMOG, MG3, FIBGN, CMP3, PT/AP #### [facility] [address] [place] [phone] , urineon Beta HCG ( test) Ql (U) Negative Negative NA [employer] Work Phone: Comment on above: is the mos t common reason for HCG in urine, although choriocarcinoma, hydatidiform mole, and certain nontropho- blastic malignancies also result in detectable urinary HCG levels. Sensitivity = 20mIU/mL. Test Performed by [employer], [address] [place] [address] [employer] Work Phone: Surgical Pathologyon 021 Surgical Pathology [id number] [facility] PATHOLOGY AND LABORATORY MEDICINE [address] [place] [address] [id number] FINAL SURGICAL PATHOLOGY REPORT NAME: CYNTHIA MOLINA : 1980 39 Y F BILLING NO.: [id number] LOCATION: [facility] [id number] PROCEDURE 11/08/2020 DATE: SURGEON: LOVELY FREEMAN MD RECEIVED 11/09/2020 DATE: ATTENDING: LOVELY FREEMAN MD REPORT DATE: 11/10/2020 COPIES TO: DIAGNOSIS: UTERUS, CERVIX, AND TUBES, HYSTERECTOMY WITH PARTIAL BILATERAL SALPINGECTOMY: BENIGN CERVIX LEIOMYOMAS WITH HYALINIZATION AND ISCHEMIC CHANGE UNREMARKABLE TUBAL SEGMENTS JAW/JAW Signature> LUIZ LAWRENCE M.D. CLINICAL INFORMATION: D25.1, D25.0, D25.2 SPECIMEN: UTERUS, WITH/WITHOUT TUBES AND OVARIES GROSS DESCRIPTION: Received in formalin labeled uterus, cervix, and bilateral tubes are multiple fragments of unoriented and unorientable, fibrous tissue that aggregate to 32 x 24 x 10 cm. Areas appear to be serosal surface are identified and they are pink-aguillon, smooth, and glistening. Two segments of fallopian tube are also identified. Further evaluating the specimen reveals a possible cervix which measures 1.7 cm in greatest dimension. The cervix is mello-aguillon with areas that appear wrinkled. Sectioning through the specimen reveals a possible endometrium which measures approximately 0.2 cm in thickness and underlying myometrium which measures 1.4 cm in thickness. Further sectioning through reveals cut surfaces that are consistent with sections of hard nodule that measures approximately 2 cm in greatest dimension. One segment of possible fallopian tube measures 5 cm in length and 0.7 cm in diameter. Fimbriae is not identified. Sectioning through reveals a pinpoint lumen. Segment of possible fallopian tube #2 is also identified and measures 3.2 cm in length and 0.6 cm in diameter. Sectioning through reveals a pinpoint lumen. Multiple employer relations representative sections are submitted. Cassette summary: 1 and 2 are two parallel sections of cervix; 3 - 5 are multiple sections that include the myometrium; 6 is employer relations representative section of hard nodule; 7 is possible fallopian tube #1; 8 is possible fallopian tube #2. ENK/JAF Disclaimer: The following statement applies to all immunohistochemistry, in situ hybridization, molecular studies, and immunofluorescence testing. The use of one or more reagents in the above tests is regulated as an analyte specific reagent (ASR). These tests were developed and their performance characteristics determined by the clinical laboratories of [facility]. They have not been cleared by the US Food and Drug Administration (FDA). The FDA has determined that such clearance or approval is not necessary. All the above immunostains were performed on paraffin embedded tissue. Appropriate positive and negative controls (where applicable) were run in parallel with the patient's specimen; these controls showed expected staining pattern, with acceptable intensity of staining. Immunohistochemical assays have not been validated on decalcified tissues. Results should be interpreted with caution given the raised possibility of false negativity on decalcified specimens. Professional Performing Location: [address] [address]. DEPARTMENT OF PATHOLOGY AND LABORATORY MEDICINE [place], [place] [address] Normal [facility] TS GELon 11-08-2020 TS GEL ABO Group: B Rh, Gel: POS Antibody Screen Gel: NEG Normal [facility] [employer] [facility] Comment on above: Performed By: #### H EMOG, MG3, FIBGN, CMP3, PT/AP #### [facility] [address] [place] [phone] TYPE AND SCREENon 11-08-2020 Sodium [Moles/Vol] B [facility] Work Phone: Sodium [Moles/Vol] Positive [facility] Work Phone: Sodium [Moles/Vol] Negative [facility] Work Phone: Test Performed by [facility], [address] [place] [address] [facility] Work Phone: CBCon 11-01-2020 Erythrocyte distribution width (RBC) [Ratio] 14.4 % 11.5 - 14.5 % [facility] Work Phone: Hematocrit (Bld) [Volume fraction] 43.3 % 35 - 47 % [facility] Work Phone: Hemoglobin (Bld) [Mass/Vol] 14.3 g/dL 11.7 - 16 g/dL [facility] Work Phone: MCH (RBC) [Entitic mass] 28.4 pg 26 - 34 pg [facility] Work Phone: MCHC (RBC) [Mass/Vol] 33.0 % 32 - 36 % [employer] Work Phone: MCV (RBC) [Entitic vol] 86.2 fL 79 - 98 fL [employer] Work Phone: Platelet mean volume (Bld) [Entitic vol] 7.9 fL 7.4 - 10.4 fL [employer] Work Phone: Platelets (Bld) [#/Vol] 278 10*3/uL 140 - 440 10*3/uL [employer] Work Phone: RBC (Bld) [#/Vol] 5.02 10*6/uL 3.8 - 5.2 10*6/uL [facility] Work Phone: WBC (Bld) [#/Vol] 6.5 10*3/uL 3.6 - 10.7 10*3/uL [employer] Work Phone: Test Performed by [facility], [address] [place] [id number] [place] [address] Work Phone: Hemogramon 11-01-2020 Erythrocyte distribution width (RBC) [Ratio] 14.4 % Normal 11.5-14.5 [facility] Comment on above: Performed By: #### H EMOG, MG3, FIBGN, CMP3, PT/AP #### [employer] [address] [place] [address] Hematocrit (Bld) [Volume fraction] 43.3 % Normal 35.0-47.0 [facility] Comment on above: Performed By: #### H EMOG, MG3, FIBGN, CMP3, PT/AP #### [facility] [place], [place] Hemoglobin (Bld) [Mass/Vol] 14.3 g/dL Normal 11.7-16.0 [facility] Comment on above: Performed By: #### H EMOG, MG3, FIBGN, CMP3, PT/AP #### [facility] [place], [place] MCH (RBC) [Entitic mass] 28.4 pg Normal 26.0-34.0 [facility] Comment on above: Performed By: #### H EMOG, MG3, FIBGN, CMP3, PT/AP #### [facility] [address] [place] [address] MCHC (RBC) [Mass/Vol] 33.0 % Normal 32.0-36.0 [facility] Comment on above: Performed By: #### H EMOG, MG3, FIBGN, CMP3, PT/AP #### [facility] [address] [place] [address] MCV (RBC) [Entitic vol] 86.2 fL Normal 79.0-98.0 [facility] Comment on above: Performed By: #### H EMOG, MG3, FIBGN, CMP3, PT/AP #### [facility] [address] [place], [place] Platelet mean volume (Bld) [Entitic vol] 7.9 fL Normal 7.4-10.4 [facility] Comment on above: Performed By: #### H EMOG, MG3, FIBGN, CMP3, PT/AP #### [place] [address] [address] [place], [place] Platelets (Bld) [#/Vol] 278 10*3/uL Normal 140-440 [facility] Comment on above: Performed By: #### H EMOG, MG3, FIBGN, CMP3, PT/AP #### [place] [address] [address] [place], [place] RBC (Bld) [#/Vol] 5.02 10*6/uL Normal 3.80-5.20 [facility] Comment on above: Performed By: #### H EMOG, MG3, FIBGN, CMP3, PT/AP #### [place] [address] [address] [place], [place] WBC (Bld) [#/Vol] 6.5 10*3/uL Normal 3.6-10.7 [facility] Comment on above: Performed By: #### H EMOG, MG3, FIBGN, CMP3, PT/AP #### [place] [address] [address] [place], [place] Progress Noteon 10-09-2020 [employer] Interface Message Text Visit Subjective: Cynthia Molina is a 39 y.o. female who presents for a visit. She is 8 weeks following a delivery classical. I have fully reviewed the and intrapartum course. The delivery was at 23 gestational weeks. Delivering Provider: Mila Paulson MD. course has been complicated by NICU stay. Pt reports infant is doing well at this time, taking things day to day. Baby is feeding by pumped breastmilk. Bleeding no bleeding. Bowel function is normal. Bladder function is normal. Patient is not sexually active. Contraception method is condoms. depression screening: negative. Patient's medications, allergies, past medical, surgical, , social, and family histories were reviewed and updated as appropriate. She is accompanied by her . Review of Systems All other systems reviewed and are negative. Objective: BP 111/71 Wt 65.6 kg (144 lb 9.6 oz) LMP 03/01/2020 BMI 23.34 kg/m Physical Exam Nursing note and vitals reviewed. Constitutional: Appearance: She is well-developed and well-nourished. Pulmonary: Effort: Pulmonary effort is normal. Abdominal: Palpations: Abdomen is soft. Musculoskeletal: General: Normal range of motion. Neurological: Mental Status: She is alert and oriented to person, place, and time. Skin: General: Skin is warm and dry. Psychiatric: Mood and Affect: Mood and affect normal. Behavior: Behavior normal. Incision well healed Assessment/Plan: Normal exam. 1. Contraception: condoms 2. Pt to follow with Dr. Lydia Murray as scheduled for fibroid evaluation 3. Follow up with NETWORK SUPPORT ENGINEER as scheduled for routine care The total time spent on this patient encounter today was 20 minutes. Normal [facility] US Pelvis Completeon MF US Pelvis Complete Patient Name: CYNTHIA MOLINA Maternal Medicine ACCESSION EXAM DATE/TIME PROCEDURE ORDERING PROVIDER [id number] 10/05/2020 13:23 EST MFM US Transvaginal MD LYDIA, LOVELY Peña Reason For Exam (MFM US Transvaginal) fibroid Report Gynecological Report (Signed Final 10/08/2020 03:31 pm) Patient Info ID #: [id number] : [birth year] (39 yrs) Name: CYNTHIA MOLINA Visit Date: 10/05/2020 01:24 pm Performed By Performed By: Carlos A Blackburn RDMS Referred By: LOVELY FREEMAN MD Attending: Trevor Kay MD Service(s) Provided Body Masker Transvaginal [address]26[address] Body Masker Sonogram [id number] Indications Fibroids Technique/Scan Quality - Technique: Transvaginal and Transabdominal Approach Comparison None History ------- Age: 39 P: 1 LMP: 03/01/20 Menses: Regular Hormone Treatment: None Previous Pelvic Surgery -- X 1 Hx of Cancer None Maternal Medicine Report Hx Comments No known Latex allergies Uterus ------ Uterus: Present Position: Anteverted Size (cm) L: 19.85 W: 15.79 H: 9.25 Description: Enlarged fibroid uterus Myomas ------ Site L(cm) W(cm) D(cm) Location Fundal 8.57 8.48 8.45 Mid 12.2 11.9 10.4 Right Lateral 6.4 5.6 5.1 Left Lateral 7.2 7.1 9.1 Uterine body 4.8 4.7 4.5 Blood Flow RI PI Comments Mobile material seen within fibroid Endometrium Endometrium: Displaced by myomas Cervix ------ Limited view of the cervix [place] No fluid was visualized Right Ovary Status: Visualized Size (cm) L: 2.73 W: 2.9 H: 2.6 Vol.(ml): 10.8 Comment: Small follicles seen. Left Ovary Status: Visualized Size (cm) L: 2.41 W: 1.84 H: 1.38 Vol.(ml): 3.2 Comment: Small follicles seen. Comments -------- Multiple large fibroids - largest measures 12.2cm Impression 1. Enlarged fibroid uterus; the dominant fibroid measures 12.2 cm mid-body, and appears to be degenerating. In addition, there are 4 other fibroid appreciated on the study. The locations are delineated in the body of the report. 2. The endometrium is not clearly seen secondary to obscuring fibroids. 3. Bilateral ovaries appear normal. 4. O-RADS 1 Maternal Medicine Report 5. Clinical correlation is recommended. Trevor Kay MD Electronically Signed Final Report 10/08/2020 03:31 pm Final Dictated: 10/05/2020 1:24 pm Dictating Physician: MD KAY GREGORY D Signed Date and Time: 10/08/2020 3:31 pm Signed by: MD KAY GREGORY D Ultrasound ACCESSION EXAM DATE/TIME PROCEDURE ORDERING PROVIDER [id number] 10/05/2020 13:23 EST [facility] US Transvaginal MD FREEMAN MEGAN A. Reason For Exam (M US Transvaginal) fibroid Report Gynecological Report (Signed Final 10/08/2020 03:31 pm) Patient Info ID #: [id number] : [birth year] (39 yrs) Name: CYNTHIA MOLINA Visit Date: 10/05/2020 01:24 pm Performed By Performed By: Carlos A Blackburn RDMS Referred By: LOVELY FREEMAN MD Attending: Trevor Kay MD Service(s) Provided Body Masker Transvaginal [id number] Body Masker Sonogram [id number] Indications Fibroids Technique/Scan Quality - Technique: Transvaginal and Transabdominal Approach Comparison None History ------- Age: 39 P: 1 LMP: 03/01/20 Menses: Regular Hormone Treatment: None Ultrasound Report Previous Pelvic Surgery -- X 1 Hx of Cancer None Hx Comments No known Latex allergies Uterus ------ Uterus: Present Position: Anteverted Size (cm) L: 19.85 W: 15.79 H: 9.25 Description: Enlarged fibroid uterus Myomas ------ Site L(cm) W(cm) D(cm) Location Fundal 8.57 8.48 8.45 Mid 12.2 11.9 10.4 Right Lateral 6.4 5.6 5.1 Left Lateral 7.2 7.1 9.1 Uterine body 4.8 4.7 4.5 Blood Flow RI PI Comments Mobile material seen within fibroid Endometrium Endometrium: Displaced by myomas Cervix ------ Limited view of the cervix [place] No fluid was visualized Right Ovary Status: Visualized Size (cm) L: 2.73 W: 2.9 H: 2.6 Vol.(ml): 10.8 Comment: Small follicles seen. Left Ovary Status: Visualized Size (cm) L: 2.41 W: 1.84 H: 1.38 Vol.(ml): 3.2 Comment: Small follicles seen. Comments -------- Multiple large fibroids - largest measures 12.2cm Impression Ultrasound Report 1. Enlarged fibroid uterus; the dominant fibroid measures 12.2 cm mid-body, and appears to be degenerating. In addition, there are 4 other fibroid appreciated on the study. The locations are delineated in the body of the report. 2. The endometrium is not clearly seen secondary to obscuring fibroids. 3. Bilateral ovaries appear normal. 4. O-RADS 1 5. Clinical correlation is recommended. Trevor Kay MD Electronically Signed Final Report 10/08/2020 03:31 pm Final Dictated: 10/05/2020 1:24 pm Dictating Physician: MD RAHUL, TREVOR Cormier Signed Date and Time: 10/08/2020 3:31 pm Signed by: MD RAHUL, TREVOR Cormier [facility] US Transvaginalon 2020 [facility] US Transvaginal Patient Name: CYNTHIA MOLINA Maternal Medicine ACCESSION EXAM DATE/TIME PROCEDURE ORDERING PROVIDER [id number] 10/05/2020 13:23 EST [facility] US Transvaginal MD LYDIA, LOVELY Peña Reason For Exam (M US Transvaginal) fibroid Report Gynecological Report (Signed Final 10/08/2020 03:31 pm) Patient Info ID #: [id number] : [birth year] (39 yrs) Name: CYNTHIA MOLINA Visit Date: 10/05/2020 01:24 pm Performed By Performed By: Carlos A Blackburn [facility] Referred By: LOVELY FREEMAN MD Attending: Trevor Kay MD Service(s) Provided Body Masker Transvaginal [id number] Body Masker Sonogram [id number] Indications Fibroids Technique/Scan Quality - Technique: Transvaginal and Transabdominal Approach Comparison None History ------- Age: 39 P: 1 LMP: 03/01/20 Menses: Regular Hormone Treatment: None Previous Pelvic Surgery -- X 1 Hx of Cancer None Maternal Medicine Report Hx Comments No known Latex allergies Uterus ------ Uterus: Present Position: Anteverted Size (cm) L: 19.85 W: 15.79 H: 9.25 Description: Enlarged fibroid uterus Myomas ------ Site L(cm) W(cm) D(cm) Location Fundal 8.57 8.48 8.45 Mid 12.2 11.9 10.4 Right Lateral 6.4 5.6 5.1 Left Lateral 7.2 7.1 9.1 Uterine body 4.8 4.7 4.5 Blood Flow RI PI Comments Mobile material seen within fibroid Endometrium Endometrium: Displaced by myomas Cervix ------ Limited view of the cervix [place] No fluid was visualized Right Ovary Status: Visualized Size (cm) L: 2.73 W: 2.9 H: 2.6 Vol.(ml): 10.8 Comment: Small follicles seen. Left Ovary Status: Visualized Size (cm) L: 2.41 W: 1.84 H: 1.38 Vol.(ml): 3.2 Comment: Small follicles seen. Comments -------- Multiple large fibroids - largest measures 12.2cm Impression 1. Enlarged fibroid uterus; the dominant fibroid measures 12.2 cm mid-body, and appears to be degenerating. In addition, there are 4 other fibroid appreciated on the study. The locations are delineated in the body of the report. 2. The endometrium is not clearly seen secondary to obscuring fibroids. 3. Bilateral ovaries appear normal. 4. O-RADS 1 Maternal Medicine Report 5. Clinical correlation is recommended. Trevor Kay MD Electronically Signed Final Report 10/08/2020 03:31 pm Final Dictated: 10/05/2020 1:24 pm Dictating Physician: MD KAY GREGORY D Signed Date and Time: 10/08/2020 3:31 pm Signed by: MD KAY GREGORY D Ultrasound ACCESSION EXAM DATE/TIME PROCEDURE ORDERING PROVIDER [id number] 10/05/2020 13:23 EST [facility] US Transvaginal MD LYDIA, LOVELY Peña Reason For Exam ([facility] US Transvaginal) fibroid Report Gynecological Report (Signed Final 10/08/2020 03:31 pm) Patient Info ID #: [id number] : [birth year] (39 yrs) Name: CYNTHIA MOLINA Visit Date: 10/05/2020 01:24 pm Performed By Performed By: Carlos A Blackburn RDMS Referred By: LOVELY FREEMAN MD Attending: Trevor Kay MD Service(s) Provided Body Masker Transvaginal [id number] Body Masker Sonogram [id number] Indications Fibroids Technique/Scan Quality - Technique: Transvaginal and Transabdominal Approach Comparison None History ------- Age: 39 P: 1 LMP: 03/01/20 Menses: Regular Hormone Treatment: None Ultrasound Report Previous Pelvic Surgery -- X 1 Hx of Cancer None Hx Comments No known Latex allergies Uterus ------ Uterus: Present Position: Anteverted Size (cm) L: 19.85 W: 15.79 H: 9.25 Description: Enlarged fibroid uterus Myomas ------ Site L(cm) W(cm) D(cm) Location Fundal 8.57 8.48 8.45 Mid 12.2 11.9 10.4 Right Lateral 6.4 5.6 5.1 Left Lateral 7.2 7.1 9.1 Uterine body 4.8 4.7 4.5 Blood Flow RI PI Comments Mobile material seen within fibroid Endometrium Endometrium: Displaced by myomas Cervix ------ Limited view of the cervix [place] No fluid was visualized Right Ovary Status: Visualized Size (cm) L: 2.73 W: 2.9 H: 2.6 Vol.(ml): 10.8 Comment: Small follicles seen. Left Ovary Status: Visualized Size (cm) L: 2.41 W: 1.84 H: 1.38 Vol.(ml): 3.2 Comment: Small follicles seen. Comments -------- Multiple large fibroids - largest measures 12.2cm Impression Ultrasound Report 1. Enlarged fibroid uterus; the dominant fibroid measures 12.2 cm mid-body, and appears to be degenerating. In addition, there are 4 other fibroid appreciated on the study. The locations are delineated in the body of the report. 2. The endometrium is not clearly seen secondary to obscuring fibroids. 3. Bilateral ovaries appear normal. 4. O-RADS 1 5. Clinical correlation is recommended. rTevor Kay MD Electronically Signed Final Report 10/08/2020 03:31 pm Final Dictated: 10/05/2020 1:24 pm Dictating Physician: MD KAY GREGORY D Signed Date and Time: 10/08/2020 3:31 pm Signed by: MD KAY GREGORY D [facility] Progress Noteon 08-28-2020 [employer]print [employer]or Authentication Interface Message Text Post op incision Visit Subjective: Cynthia Molina is a 39 y.o. female who presents for a postoperative incision check. She is 2 week following a Primary Classical uterine incision via posterior hysterotomy and vertical skin incision Anesthesia: Spinal anesthesia Laceration(s): n/a Delivery Complications: acute bloos loss anemia requiring additional 2 units PRBC and FFP X one unit EBL: 1500 cc I have fully reviewed the and intrapartum course. The delivery was at 23 gestational weeks. Delivering Provider: Mila Paulson MD. course has been unremarkable. Bleeding minimal red bleeding. Typically goes through 1 pad/day. Denies any clots. Bowel function is regular but does have intermittent nerve pain secondary to fibroids impacting stool movement through bowel. Bladder function is no dysuria. Does feel frontal fibroid puts pressure on bladder- typically will apply gentle upward pressure on fibroid to allow for complete bladder emptying. Patient is not sexually active. Contraception method is considering options. depression screening: negative.States good support and no SI/HI Baby is in NICU and stable per patient. States she did open her eye today. Patient's medications, allergies, past medical, surgical, , social, and family histories were reviewed and updated as appropriate. She is accompanied by her . Review of Systems Respiratory: Negative. Cardiovascular: Negative. Gastrointestinal: Positive for abdominal pain (ongoing s/p and fibroid pain. Only taking OTC for control). Genitourinary: Negative. Psychiatric/Behaviora l: Negative. Objective: BP 136/83 Wt 63.5 kg (139 lb 14.4 oz) LMP 03/01/2020 BMI 22.58 kg/m Physical Exam Vitals reviewed. Constitutional: Appearance: She is well-developed and well-nourished. Pulmonary: Effort: Pulmonary effort is normal. Abdominal: Palpations: Abdomen is soft. Skin: General: Skin is warm and dry. Psychiatric: Mood and Affect: Mood and affect normal. Behavior: Behavior normal. Thought Content: Thought content normal. Judgment: Judgment normal. Incision evaluated. Incision intact without redness, ecchymosis, drainage. Assessment/Plan: Stable 2week post op visit 1. Contraception: abstinence 2. Follow up with Dr Freeman on 09/11/20 to reevaluate status of fibroids and fibroid management 3. Follow up with us in 6 weeks for final plan 4. Continue vitamin, pelvic rest 5. Call with fever, increased vag bleeding>1pad/hr, increased pain, inability to void or defecate 6. Ok to increase frequency of ambulation- no lifting The total patient time of the visit was 15 minutes, of which greater than 50% of the time was spent counseling and coordinating care. Normal [facility] Hematologyon 08-14-2020 ABO and Rh group Nom (Bld) [address] [place], [place] ABO and Rh group Nom (Bld) [address] [place], [place] Leukodepleted Red Cellson Leukodepleted Red Cells Leukodepleted Red Cells: [id number] released 08/14/20 05:32 BRS Unit Blood Type: B Unit Blood Rh: POS Blood Product Code: AS1 Unit Number: [id number] Unit Status: released Barcoded Unit Number: =[id number] Barcoded Product Code: = Barcoded ABO/Rh: =%7300 Unit Expiration: Leukodepleted Red Cells: [id number] released 08/14/20 05:32 BRS Unit Blood Type: B Unit Blood Rh: POS Blood Product Code: AS1 Unit Number: [id number] Unit Status: released Barcoded Unit Number: =[id number] Barcoded Product Code: = Barcoded ABO/Rh: =%7300 Unit Expiration: Normal [facility] Comment on above: Performed By: #### H EMOG, MG3, FIBGN, CMP3, PT/AP #### [facility] [address] [place] [address] Metabolic Panelon 08-14-2020 Sodium [Moles/Vol] released [place], [place] Sodium [Moles/Vol] [id number] mmol/L [place] Sodium [Moles/Vol] [id number] [place] Otheron 08-14-2020 [place] PREPARE PLATELETS, 1 Product on 08-14-2020 ABO and Rh group Nom (Bld) [address] [place], [place] Blood product unit ID (Dose) [#] [id number] [place] Blood product unit ID (Dose) [#] [id number] [place] Blood product unit ID (Dose) [#] [id number] [place] Sodium [Moles/Vol] [id number] [place] Sodium [Moles/Vol] [id number] [place] Sodium [Moles/Vol] 871964213816 mmol/L [place] Sodium [Moles/Vol] 879086432325 mmol/L [place] Sodium [Moles/Vol] [id number] [place] Sodium [Moles/Vol] 910252934078 mmol/L [place] PREPARE RBC (CROSSMATCH), 2 Unitson 08-14-2020 Blood product unit ID (Dose) [#] [id number] [place] Blood product unit ID (Dose) [#] [id number] [place] Pheresis Leuko Reducedon Pheresis Leuko Reduced PATHOGEN REDUCED LR PPHR: [id number] released 08/13/20 00:43 BRS Unit Blood Type: O Unit Blood Rh: POS Blood Product Code: 3PR Unit Number: [id number] Unit Status: released Barcoded Unit Number: =[id number] Barcoded Product Code: = Barcoded ABO/Rh: =%5100 Unit Expiration: Pheresis Leuko Reduced: [id number] released 08/14/20 01:06 BRS Unit Blood Type: O Unit Blood Rh: POS Blood Product Code: PL6 Unit Number: [id number] Unit Status: released Barcoded Unit Number: =[id number] Barcoded Product Code: = Barcoded ABO/Rh: =%5100 Unit Expiration: [id number] Pheresis Leuko Reduced: [id number] released 08/14/20 05:32 BRS Unit Blood Type: A Unit Blood Rh: POS Blood Product Code: PL5 Unit Number: [id number] Unit Status: released Barcoded Unit Number: =[id number] Barcoded Product Code: = Barcoded ABO/Rh: =%6200 Unit Expiration: [id number] Normal [facility] Comment on above: Performed By: #### H EMOG, MG3, FIBGN, CMP3, PT/AP #### [address] [address] CBCon 08-13-2020 Erythrocyte distribution width (RBC) [Ratio] 14.8 % High 11.5 - 14.5 % [place] Hematocrit (Bld) [Volume fraction] 32.0 % Low 35 - 47 % [place] Hemoglobin (Bld) [Mass/Vol] 10.7 g/dL Low 11.7 - 16 g/dL [place] Interpretation and review of laboratory results Abnormal [place] MCH (RBC) [Entitic mass] 29.9 pg 26 - 34 pg [place] MCHC (RBC) [Mass/Vol] 33.5 % 32 - 36 % [place] MCV (RBC) [Entitic vol] 89.1 fL 79 - 98 fL [place] Platelet mean volume (Bld) [Entitic vol] 7.2 fL Low 7.4 - 10.4 fL [place], [place] Platelets (Bld) [#/Vol] 262 10*3/uL 140 - 440 10*3/uL [place] RBC (Bld) [#/Vol] 3.59 10*6/uL Low 3.8 - 5.2 10*6/uL [place] WBC (Bld) [#/Vol] 12.0 10*3/uL High 3.6 - 10.7 10*3/uL [place] Test Performed by [facility], [address] [place] [id number] [place] [address] Comp Metabolic Panelon 08-13 ALP [Catalytic activity/Vol] 90 U/L Normal 38-126 [facility] Comment on above: Performed By: #### H EMOG, MG3, FIBGN, CMP3, PT/AP #### [address] ALT [Catalytic activity/Vol] 22 U/L Normal 0-34 [facility] Comment on above: Result Comment: The ALT test is performed by an updated assay method. Please note that the reference intervals have been changed and are now sex specific. Performed By: #### H EMOG, MG3, FIBGN, CMP3, PT/AP #### [address] [address] [place], [place] Anion gap [Moles/Vol] 5 Normal [facility] Comment on above: Performed By: #### H EMOG, MG3, FIBGN, CMP3, PT/AP #### [address] AST [Catalytic activity/Vol] 39 U/L Normal 15-46 [facility] Comment on above: Performed By: #### H EMOG, MG3, FIBGN, CMP3, PT/AP #### [address], [place] Bilirubin [Mass/Vol] 0.3 mg/dL Normal 0.2-1.3 [facility] Comment on above: Performed By: #### H EMOG, MG3, FIBGN, CMP3, PT/AP #### [address] [address] [place], [place] Calcium [Mass/Vol] 7.2 mg/dL Low 8.4-10.4 [facility] Comment on above: Performed By: #### H EMOG, MG3, FIBGN, CMP3, PT/AP #### [address] [address] [address] [place], [place] CO2 [Moles/Vol] 25 mmol/L Normal 22-30 [facility] Comment on above: Performed By: #### H EMOG, MG3, FIBGN, CMP3, PT/AP #### [address] [address] [address] [place], [place] Glucose [Mass/Vol] 125 mg/dL High 70-100 [facility] Comment on above: Performed By: #### H EMOG, MG3, FIBGN, CMP3, PT/AP #### [address] [address] [address] [place], [place] Protein [Mass/Vol] 6.1 g/dL Low 6.3-8.2 [facility] Comment on above: Performed By: #### H EMOG, MG3, FIBGN, CMP3, PT/AP #### [address] [address] [address] [place], [place] Urea nitrogen [Mass/Vol] 15 mg/dL Normal 7-20 [facility] Comment on above: Performed By: #### H EMOG, MG3, FIBGN, CMP3, PT/AP #### [address] [address] [address] [place], [place] Creatinine [Mass/Vol] 0.65 mg/dL Normal 0.52-1.25 [facility] Comment on above: Performed By: #### H EMOG, MG3, FIBGN, CMP3, PT/AP #### [address] [address] [place], [place] GFR/1.73 sq M predicted among blacks MDRD (S/P/Bld) [Vol rate/Area] mL/min/{1.73_m2} Normal >60 [facility] Comment on above: Performed By: #### H EMOG, MG3, FIBGN, CMP3, PT/AP #### [address] GFR/1.73 sq M predicted among non-blacks MDRD (S/P/Bld) [Vol rate/Area] mL/min/{1.73_m2} Normal >60 [facility] Comment on above: Result Comment: KDIG O guidelines provide the following GFR categories: Stage GFR(ml/min/1.73 m2) Terms G1 >=90 Normal or high G2 60-89 Mildly decreased* G3a 45-59 Mildly to moderately decreased G3b 30-44 Moderately to severely decreased G4 15-29 Severely decreased G5 <15 Kidney failure *Relative to young adult level. In the absence of evidence of kidney damage, neither GFR category G1 nor G2 fulfill the criteria for CKD. The CKD-EPI equation is validated in individuals 18 years of age and older. Currently the best equation for estimating glomerular filtration rate (GFR) from serum creatinine in children is the Bedside Jason equation. It is less accurate in patients with extremes of muscle mass, restriction of dietary protein, ingestion of creatine, extra-renal metabolism of creatinine, or treatment with medications that affect renal tubular creatinine secretion. Performed By: #### H EMOG, MG3, FIBGN, CMP3, PT/AP #### [address] Albumin [Mass/Vol] 2.9 g/dL Low 3.5-5.0 [facility] Comment on above: Performed By: #### H EMOG, MG3, FIBGN, CMP3, PT/AP #### [address] Potassium [Moles/Vol] 4.4 mmol/L Normal 3.5-5.1 [facility] Comment on above: Performed By: #### H EMOG, MG3, FIBGN, CMP3, PT/AP #### [facility] [address] [place], [place] Sodium [Moles/Vol] 132 mmol/L Low 135-145 [facility] Comment on above: Performed By: #### H EMOG, MG3, FIBGN, CMP3, PT/AP #### [facility] [address] [place], [place] Chloride [Moles/Vol] 102 mmol/L Normal 98-107 [facility] Comment on above: Performed By: #### H EMOG, MG3, FIBGN, CMP3, PT/AP #### [address] [address] [address] [place], [place] Potassium [Moles/Vol] 4.2 mmol/L Normal 3.5-5.1 [facility] Comment on above: Performed By: #### F IBGN, CMP3, HEMOG, PT/AP #### [address] [address] [address] [place], [place] ALT [Catalytic activity/Vol] 23 U/L Normal 0-34 [facility] Comment on above: Result Comment: The ALT test is performed by an updated assay method. Please note that the reference intervals have been changed and are now sex specific. Performed By: #### F IBGN, CMP3, HEMOG, PT/AP #### [address] [address] [address] [place], [place] Calcium [Mass/Vol] 6.8 mg/dL Low 8.4-10.4 [facility] Comment on above: Performed By: #### F IBGN, CMP3, HEMOG, PT/AP #### [address] [address] [address] [place], [place] Glucose [Mass/Vol] 150 mg/dL High 70-100 [facility] Comment on above: Performed By: #### F IBGN, CMP3, HEMOG, PT/AP #### [address] [address] [address] [place], [place] Urea nitrogen [Mass/Vol] 16 mg/dL Normal 7-20 [facility] Comment on above: Performed By: #### F IBGN, CMP3, HEMOG, PT/AP #### [facility] [address] [place], [place] ALP [Catalytic activity/Vol] 73 U/L Normal 38-126 [facility] Comment on above: Performed By: #### F IBGN, CMP3, HEMOG, PT/AP #### [facility] [address] [place], [place] Anion gap [Moles/Vol] 6 Normal [facility] Comment on above: Performed By: #### F IBGN, CMP3, HEMOG, PT/AP #### [address] [address] [address] [place], [place] AST [Catalytic activity/Vol] 34 U/L Normal 15-46 [facility] Comment on above: Performed By: #### F IBGN, CMP3, HEMOG, PT/AP #### [address] [address] [address] [place], [place] Bilirubin [Mass/Vol] 0.3 mg/dL Normal 0.2-1.3 [facility] Comment on above: Performed By: #### F IBGN, CMP3, HEMOG, PT/AP #### [address] [address] [address] [place], [place] CO2 [Moles/Vol] 22 mmol/L Normal 22-30 [facility] Comment on above: Performed By: #### F IBGN, CMP3, HEMOG, PT/AP #### [address] [address] [address] [place], [place] Creatinine [Mass/Vol] 0.56 mg/dL Normal 0.52-1.25 [facility] Comment on above: Performed By: #### F IBGN, CMP3, HEMOG, PT/AP #### [address] [address] [place] [place] GFR/1.73 sq M predicted among blacks MDRD (S/P/Bld) [Vol rate/Area] mL/min/{1.73_m2} Normal >60 [facility] Comment on above: Performed By: #### F IBGN, CMP3, HEMOG, PT/AP #### [address] [place] [address] GFR/1.73 sq M predicted among non-blacks MDRD (S/P/Bld) [Vol rate/Area] mL/min/{1.73_m2} Normal >60 [facility] Comment on above: Result Comment: KDIG O guidelines provide the following GFR categories: Stage GFR(ml/min/1.73 m2) Terms G1 >=90 Normal or high G2 60-89 Mildly decreased* G3a 45-59 Mildly to moderately decreased G3b 30-44 Moderately to severely decreased G4 15-29 Severely decreased G5 <15 Kidney failure *Relative to young adult level. In the absence of evidence of kidney damage, neither GFR category G1 nor G2 fulfill the criteria for CKD. The CKD-EPI equation is validated in individuals 18 years of age and older. Currently the best equation for estimating glomerular filtration rate (GFR) from serum creatinine in children is the Bedside Jason equation. It is less accurate in patients with extremes of muscle mass, restriction of dietary protein, ingestion of creatine, extra-renal metabolism of creatinine, or treatment with medications that affect renal tubular creatinine secretion. Performed By: #### F IBGN, CMP3, HEMOG, PT/AP #### [facility] [address] [place], [place] Protein [Mass/Vol] 5.7 g/dL Low 6.3-8.2 [facility] Comment on above: Performed By: #### F IBGN, CMP3, HEMOG, PT/AP #### [facility] [address] [place], [place] Sodium [Moles/Vol] 132 mmol/L Low 135-145 [facility] Comment on above: Performed By: #### F IBGN, CMP3, HEMOG, PT/AP #### [facility] [address] [place] [address] Albumin [Mass/Vol] 2.7 g/dL Low 3.5-5.0 [facility] Comment on above: Performed By: #### F IBGN, CMP3, HEMOG, PT/AP #### [facility] [address] [place] Chloride [Moles/Vol] 105 mmol/L Normal 98-107 [facility] Comment on above: Performed By: #### F IBGN, CMP3, HEMOG, PT/AP #### [facility] [address] [place] [address] Comprehensive Metabolic Pane iman 08-13-2020 Albumin [Mass/Vol] 2.9 g/dL Low 3.5 - 5 g/dL [place], [place] ALP [Catalytic activity/Vol] 90 U/L 38 - 126 U/L [place] ALT [Catalytic activity/Vol] 22 U/L 0 - 34 U/L [place] Comment on above: The ALT test is perf ormed by an updated assay method. Please note that the reference intervals have been changed and are now sex specific. Anion gap [Moles/Vol] 5 mmol/L [place] AST [Catalytic activity/Vol] 39 U/L 15 - 46 U/L [place] Bilirubin Ql (U) 0.3 mg/dL 0.2 - 1.3 mg/dL [place] Calcium [Mass/Vol] 7.2 mg/dL Low 8.4 - 10. 4 mg/dL [place] Chloride [Moles/Vol] 102 mmol/L 98 - 10 7 mmol/L [place] CO2 [Moles/Vol] 25 mmol/L 22 - 30 mmol/L [place] Creatinine [Mass/Vol] 0.65 mg/dL 0.52 - 1.25 mg/dL [place] EGFR IF NonAfrican [place] >90.0 >60 mL/min [place] Comment on above: KDIGO guidelines pro vide the following GFR categories: Stage GFR(ml/min/1.73 m2) Terms G1 >=90 Normal or high G2 60-89 Mildly decreased* G3a 45-59 Mildly to moderately decreased G3b 30-44 Moderately to severely decreased G4 15-29 Severely decreased G5 <15 Kidney failure *Relative to young adult level. In the absence of evidence of kidney damage, neither GFR category G1 nor G2 fulfill the criteria for CKD. The CKD-EPI equation is validated in individuals 18 years of age and older. Currently the best equation for estimating glomerular filtration rate (GFR) from serum creatinine in children is the Bedside Jason equation. It is less accurate in patients with extremes of muscle mass, restriction of dietary protein, ingestion of creatine, extra-renal metabolism of creatinine, or treatment with medications that affect renal tubular creatinine secretion. GFR/1.73 sq M predicted among blacks MDRD (S/P/Bld) [Vol rate/Area] mL/min/{1.73_m2} >60 mL/min [place] Glucose [Mass/Vol] 125 mg/dL High 70 - 100 mg/dL [place], [place] Interpretation and review of laboratory results Abnormal [place] Potassium [Moles/Vol] 4.4 mmol/L 3.5 - 5.1 mmol/L [place] Protein [Mass/Vol] 6.1 g/dL Low 6.3 - 8.2 g/dL [place], [place] Sodium [Moles/Vol] 132 mmol/L Low 135 - 145 mmol/L [place] Urea nitrogen [Mass/Vol] 15 mg/dL 7 - 20 mg/dL [place] Test Performed by [facility], [address] [place] [address] Fibrinogenon 08-13-2020 Fibrinogen 410 mg/dL High 200-400 [facility] Comment on above: Performed By: #### F IBGN, CMP3, HEMOG, PT/AP #### [address] [address] Group B Strep Screen PCRon 10-13-2019 Group B Strep Screen PCR Group B Strep Screen PCR --> Status: F NEGATIVE Expected Result: Negative CDC guidelines for prevention of Group B Strep disease recommends collection of both vaginal and rectal specimens for optimal recovery of GBS. Methodology - Real Time PCR (Cepheid) Expected Result: Negative CDC guidelines for prevention of Group B Strep disease recommends collection of both vaginal and rectal specimens for optimal recovery of GBS. Methodology - Real Time PCR (Cepheid) Normal [facility] Comment on above: Order Comment: Speci men Source Comment:Vaginal-Perirectal Performed By: #### H EMOG, MG3, FIBGN, CMP3, PT/AP #### [address] [place], [place] Group B Strep, PCRon 020 Group B Strep Screen PCR NEGATIVE Expected Result: Negative CDC guidelines for prevention of Group B Strep disease recommends collection of both vaginal and rectal specimens for optimal recovery of GBS. Methodology - Real Time PCR ([employer] [place]) [place], [place] Test Performed by [facility], [address] [place] [address] Specimen Source Comment:Vaginal-Perir ectal [place], [place] Hemogramon 08-13-2020 Erythrocyte distribution width (RBC) [Ratio] 14.8 % High 11.5-14.5 [facility] Comment on above: Performed By: #### H EMOG, MG3, FIBGN, CMP3, PT/AP #### [address] [address] [address] [place], [place] Hematocrit (Bld) [Volume fraction] 32.0 % Low 35.0-47.0 [facility] Comment on above: Performed By: #### H EMOG, MG3, FIBGN, CMP3, PT/AP #### [address] [address] [address] [place], [place] Hemoglobin (Bld) [Mass/Vol] 10.7 g/dL Low 11.7-16.0 [facility] Comment on above: Performed By: #### H EMOG, MG3, FIBGN, CMP3, PT/AP #### [address] [address] [place] MCH (RBC) [Entitic mass] 29.9 pg Normal 26.0-34.0 [facility] Comment on above: Performed By: #### H EMOG, MG3, FIBGN, CMP3, PT/AP #### [address] MCHC (RBC) [Mass/Vol] 33.5 % Normal 32.0-36.0 [facility] Comment on above: Performed By: #### H EMOG, MG3, FIBGN, CMP3, PT/AP #### [address] [address] [place] MCV (RBC) [Entitic vol] 89.1 fL Normal 79.0-98.0 [facility] Comment on above: Performed By: #### H EMOG, MG3, FIBGN, CMP3, PT/AP #### [address] [address] [place] Platelet mean volume (Bld) [Entitic vol] 7.2 fL Low 7.4-10.4 [facility] Comment on above: Performed By: #### H EMOG, MG3, FIBGN, CMP3, PT/AP #### [address] [address] [place] Platelets (Bld) [#/Vol] 262 10*3/uL Normal 140-440 [facility] Comment on above: Performed By: #### H EMOG, MG3, FIBGN, CMP3, PT/AP #### [address] RBC (Bld) [#/Vol] 3.59 10*6/uL Low 3.80-5.20 [facility] Comment on above: Performed By: #### H EMOG, MG3, FIBGN, CMP3, PT/AP #### [address] WBC (Bld) [#/Vol] 12.0 10*3/uL High 3.6-10.7 [facility] Comment on above: Performed By: #### H EMOG, MG3, FIBGN, CMP3, PT/AP #### [address] Erythrocyte distribution width (RBC) [Ratio] 14.6 % High 11.5-14.5 [facility] Comment on above: Performed By: #### F IBGN, CMP3, HEMOG, PT/AP #### [address] Hematocrit (Bld) [Volume fraction] 32.6 % Low 35.0-47.0 [facility] Comment on above: Performed By: #### F IBGN, CMP3, HEMOG, PT/AP #### [address] [address] [place] [place] Hemoglobin (Bld) [Mass/Vol] 11.0 g/dL Low 11.7-16.0 [facility] Comment on above: Performed By: #### F IBGN, CMP3, HEMOG, PT/AP #### [address] [address] [place] [place] MCH (RBC) [Entitic mass] 29.5 pg Normal 26.0-34.0 [facility] Comment on above: Performed By: #### F IBGN, CMP3, HEMOG, PT/AP #### [address] [address] [address] [place] MCHC (RBC) [Mass/Vol] 33.6 % Normal 32.0-36.0 [facility] Comment on above: Performed By: #### F IBGN, CMP3, HEMOG, PT/AP #### [address] [address] [address] [place] MCV (RBC) [Entitic vol] 87.8 fL Normal 79.0-98.0 [facility] Comment on above: Performed By: #### F IBGN, CMP3, HEMOG, PT/AP #### [address] [address] [place] [place] Platelet mean volume (Bld) [Entitic vol] 6.8 fL Low 7.4-10.4 [facility] Comment on above: Performed By: #### F IBGN, CMP3, HEMOG, PT/AP #### [address] [address] [place] [place] Platelets (Bld) [#/Vol] 281 10*3/uL Normal 140-440 [facility] Comment on above: Performed By: #### F IBGN, CMP3, HEMOG, PT/AP #### [address] [address] [place] [place] RBC (Bld) [#/Vol] 3.71 10*6/uL Low 3.80-5.20 [facility] Comment on above: Performed By: #### F IBGN, CMP3, HEMOG, PT/AP #### [facility] [address] [place], [place] WBC (Bld) [#/Vol] 13.9 10*3/uL High 3.6-10.7 [facility] Comment on above: Performed By: #### F IBGN, CMP3, HEMOG, PT/AP #### [facility] [address], [place] PROTIME/INR & PTTon 08-13-20 20 aPTT Coag (Bld) [Time] 24.2 s 20 - 30.5 s [place], [place] Comment on above: NOTE: The therapeuti c time for Heparin anticoagulation, based on Xa activity inhibition, is an APTT of 46-80 seconds. INR Coag (PPP) [Relative time] 0.9 {INR} [place], [place] Comment on above: Recommended Anticoag ulant Therapy: SEE BELOW ----- INR of 2.0 - 3.0 : - Prophylaxis of Venous Thrombosis (high-risk surgery) - Treatment of Venous Thrombosis - Treatment of Pulmonary Embolism (Includes tissue heart valves, Acute Myocardial Infarction to prevent systemic embolism, Valvular Heart Disease, and Atrial Fibrillation) ----- INR of 2.5 - 3.5 : - Mechanical Prosthetic Valves (high risk) - If oral anticoagulant therapy is used to prevent Myocardial Infarction PT Coag (PPP) [Time] 9.5 s 9 - 12 s [place], [place] Comment on above: . Test Performed by [facility], [address] [place] [id number] [place], [place] Protime AND APTTon 0 aPTT Coag (Bld) [Time] 24.2 s Normal 20.0-30.5 [facility] Comment on above: Result Comment: NOTE : The therapeutic time for Heparin anticoagulation, based on Xa activity inhibition, is an APTT of 46-80 seconds. Performed By: #### H EMOG, MG3, FIBGN, CMP3, PT/AP #### [facility] [address], [place] INR Coag (PPP) [Relative time] 0.9 Normal 0.9-1.1 [facility] Comment on above: Result Comment: Lb mmended Anticoagulant Therapy: SEE BELOW ----- INR of 2.0 - 3.0 : - Prophylaxis of Venous Thrombosis (high-risk surgery) - Treatment of Venous Thrombosis - Treatment of Pulmonary Embolism (Includes tissue heart valves, Acute Myocardial Infarction to prevent systemic embolism, Valvular Heart Disease, and Atrial Fibrillation) ----- INR of 2.5 - 3.5 : - Mechanical Prosthetic Valves (high risk) - If oral anticoagulant therapy is used to prevent Myocardial Infarction Performed By: #### H EMOG, MG3, FIBGN, CMP3, PT/AP #### [address] [address] [place] [id number] PT Coag (PPP) [Time] 9.5 s Normal 9.0-12.0 [facility] Comment on above: Result Comment: . Performed By: #### H EMOG, MG3, FIBGN, CMP3, PT/AP #### [address] [address] [address] [place] aPTT Coag (Bld) [Time] 25.0 s Normal 20.0-30.5 [facility] Comment on above: Result Comment: NOTE : The therapeutic time for Heparin anticoagulation, based on Xa activity inhibition, is an APTT of 46-80 seconds. Performed By: #### F IBGN, CMP3, HEMOG, PT/AP #### [address] [address] [address] [place] INR Coag (PPP) [Relative time] 0.9 Normal 0.9-1.1 [facility] Comment on above: Result Comment: Lb mmended Anticoagulant Therapy: SEE BELOW ----- INR of 2.0 - 3.0 : - Prophylaxis of Venous Thrombosis (high-risk surgery) - Treatment of Venous Thrombosis - Treatment of Pulmonary Embolism (Includes tissue heart valves, Acute Myocardial Infarction to prevent systemic embolism, Valvular Heart Disease, and Atrial Fibrillation) ----- INR of 2.5 - 3.5 : - Mechanical Prosthetic Valves (high risk) - If oral anticoagulant therapy is used to prevent Myocardial Infarction Performed By: #### F IBGN, CMP3, HEMOG, PT/AP #### [address] [address] [place] [place] PT Coag (PPP) [Time] 9.6 s Normal 9.0-12.0 [facility] Comment on above: Result Comment: . Performed By: #### F IBGN, CMP3, HEMOG, PT/AP #### [address] [address] [address] [place], [place] Add On Lab Teston 08-12-2020 Sodium [Moles/Vol] Rejected [place], [place] Comment on above: No specimen availabl e for addon. Test Performed by [facility], [address] [place] [id number] spoke to nurse Javed. 08/12/2020 08:18 [place], [place] Add on test from [facility]on 08-12 Add on test from [facility] Rejected Normal [facility] Comment on above: Order Comment: spoke to nurse Javed. 08/12/2020 08:18 Result Comment: No s pecimen available for addon. Performed By: #### H EMOG, MG3, FIBGN, CMP3, PT/AP #### [address] [address] [place], [place] CALCIUM, IONIZEDon 0 Interpretation and review of laboratory results Abnormal [place], [place] Ionized Ca 3.50 mg/dL Low 4.3 - 5.2 mg/dL [place] pH (Bld) 7.45 [pH] [place] Test Performed by [address] [address] [place], [place] CBCon 08-12-2020 Erythrocyte distribution width (RBC) [Ratio] 14.6 % High 11.5 - 14.5 % [place] Hematocrit (Bld) [Volume fraction] 32.6 % Low 35 - 47 % [place] Hemoglobin (Bld) [Mass/Vol] 11.0 g/dL Low 11.7 - 16 g/dL [place], [place] Interpretation and review of laboratory results Abnormal [place] MCH (RBC) [Entitic mass] 29.5 pg 26 - 34 pg [place] MCHC (RBC) [Mass/Vol] 33.6 % 32 - 36 % [place] MCV (RBC) [Entitic vol] 87.8 fL 79 - 98 fL [place] Platelet mean volume (Bld) [Entitic vol] 6.8 fL Low 7.4 - 10.4 fL [place], [place] Platelets (Bld) [#/Vol] 281 10*3/uL 140 - 440 10*3/uL [place] RBC (Bld) [#/Vol] 3.71 10*6/uL Low 3.8 - 5.2 10*6/uL [place] WBC (Bld) [#/Vol] 13.9 10*3/uL High 3.6 - 10.7 10*3/uL [place] Test Performed by [address] [id number] [place] Erythrocyte distribution width (RBC) [Ratio] 13.9 % 11.5 - 14.5 % [place] Hematocrit (Bld) [Volume fraction] 26.5 % Low 35 - 47 % [place] Hemoglobin (Bld) [Mass/Vol] 8.9 g/dL Low 11.7 - 16 g/dL [place] Interpretation and review of laboratory results Abnormal [place] MCH (RBC) [Entitic mass] 29.8 pg 26 - 34 pg [place] MCHC (RBC) [Mass/Vol] 33.7 % 32 - 36 % [place] MCV (RBC) [Entitic vol] 88.5 fL 79 - 98 fL [place] Platelet mean volume (Bld) [Entitic vol] 7.0 fL Low 7.4 - 10.4 fL [place], [place] Platelets (Bld) [#/Vol] 306 10*3/uL 140 - 440 10*3/uL [place] RBC (Bld) [#/Vol] 2.99 10*6/uL Low 3.8 - 5.2 10*6/uL [place] WBC (Bld) [#/Vol] 11.2 10*3/uL High 3.6 - 10.7 10*3/uL [facility], [place] Test Performed by [facility] [facility], [address], [place] [address] [facility], [place] CULTURE URINEon 08-12-2020 CULTURE URINE CULTURE URINE --> Status: F Normal urogenital william present. Normal [facility] Comment on above: Order Comment: Speci men Source Comment:Urine, clean catch Performed By: #### H EMOG, MG3, FIBGN, CMP3, PT/AP #### [facility] [address], [place] Calcium,Ionizedon 08-12-2020 Ionized Ca,Measured 3.50 mg/dL Low 4.30-5.20 [facility] Comment on above: Performed By: #### I CA #### [facility] [address] [place], [place] pH, Ionized Calcium 7.45 Normal 7.31-7.46 [facility] Comment on above: Performed By: #### I CA #### [facility] [address], [place] Comp Metabolic Panelon 08-12 ALT [Catalytic activity/Vol] 22 U/L Normal 0-34 [facility] Comment on above: Result Comment: The ALT test is performed by an updated assay method. Please note that the reference intervals have been changed and are now sex specific. Performed By: #### H EMOG, MG3, FIBGN, CMP3, PT/AP #### [facility] [address] [place], [place] Calcium [Mass/Vol] 6.8 mg/dL Low 8.4-10.4 [facility] Comment on above: Performed By: #### H EMOG, MG3, FIBGN, CMP3, PT/AP #### [facility] [address], [place] Glucose [Mass/Vol] 124 mg/dL High 70-100 [facility] Comment on above: Performed By: #### H EMOG, MG3, FIBGN, CMP3, PT/AP #### [facility] [employer] [facility] [address] [place], [place] ALP [Catalytic activity/Vol] 93 U/L Normal 38-126 [facility] Comment on above: Performed By: #### H EMOG, MG3, FIBGN, CMP3, PT/AP #### [address] [address] [place], [place] Anion gap [Moles/Vol] 5 Normal [facility] Comment on above: Performed By: #### H EMOG, MG3, FIBGN, CMP3, PT/AP #### [address] [address] [place] AST [Catalytic activity/Vol] 29 U/L Normal 15-46 [facility] Comment on above: Performed By: #### H EMOG, MG3, FIBGN, CMP3, PT/AP #### [address] Bilirubin [Mass/Vol] 0.3 mg/dL Normal 0.2-1.3 [facility] Comment on above: Performed By: #### H EMOG, MG3, FIBGN, CMP3, PT/AP #### [address] [address] [address] [place] CO2 [Moles/Vol] 24 mmol/L Normal 22-30 [facility] Comment on above: Performed By: #### H EMOG, MG3, FIBGN, CMP3, PT/AP #### [address] Creatinine [Mass/Vol] 0.61 mg/dL Normal 0.52-1.25 [facility] Comment on above: Performed By: #### H EMOG, MG3, FIBGN, CMP3, PT/AP #### [address] [address] [place] GFR/1.73 sq M predicted among blacks MDRD (S/P/Bld) [Vol rate/Area] mL/min/{1.73_m2} Normal >60 [facility] Comment on above: Performed By: #### H EMOG, MG3, FIBGN, CMP3, PT/AP #### [address] [address] [place] GFR/1.73 sq M predicted among non-blacks MDRD (S/P/Bld) [Vol rate/Area] mL/min/{1.73_m2} Normal >60 [facility] Comment on above: Result Comment: KDIG O guidelines provide the following GFR categories: Stage GFR(ml/min/1.73 m2) Terms G1 >=90 Normal or high G2 60-89 Mildly decreased* G3a 45-59 Mildly to moderately decreased G3b 30-44 Moderately to severely decreased G4 15-29 Severely decreased G5 <15 Kidney failure *Relative to young adult level. In the absence of evidence of kidney damage, neither GFR category G1 nor G2 fulfill the criteria for CKD. The CKD-EPI equation is validated in individuals 18 years of age and older. Currently the best equation for estimating glomerular filtration rate (GFR) from serum creatinine in children is the Bedside Jason equation. It is less accurate in patients with extremes of muscle mass, restriction of dietary protein, ingestion of creatine, extra-renal metabolism of creatinine, or treatment with medications that affect renal tubular creatinine secretion. Performed By: #### H EMOG, MG3, FIBGN, CMP3, PT/AP #### [facility] [address] [place], [place] Protein [Mass/Vol] 6.2 g/dL Low 6.3-8.2 [facility] Comment on above: Performed By: #### H EMOG, MG3, FIBGN, CMP3, PT/AP #### [facility] [address] [place], [place] Urea nitrogen [Mass/Vol] 12 mg/dL Normal 7-20 [facility] Comment on above: Performed By: #### H EMOG, MG3, FIBGN, CMP3, PT/AP #### [facility] [address] [place], [place] Chloride [Moles/Vol] 101 mmol/L Normal 98-107 [facility] Comment on above: Performed By: #### H EMOG, MG3, FIBGN, CMP3, PT/AP #### [facility] [address] [place], [place] Potassium [Moles/Vol] 4.2 mmol/L Normal 3.5-5.1 [facility] Comment on above: Performed By: #### H EMOG, MG3, FIBGN, CMP3, PT/AP #### [facility] [address] [place], [place] Sodium [Moles/Vol] 130 mmol/L Low 135-145 [facility] Comment on above: Performed By: #### H EMOG, MG3, FIBGN, CMP3, PT/AP #### [facility] [address] [place], [place] Albumin [Mass/Vol] 3.0 g/dL Low 3.5-5.0 [facility] Comment on above: Performed By: #### H EMOG, MG3, FIBGN, CMP3, PT/AP #### [facility] [address] [place], [place] Comprehensive Metabolic Pane iman 08-12-2020 Albumin [Mass/Vol] 2.7 g/dL Low 3.5 - 5 g/dL [place] ALP [Catalytic activity/Vol] 73 U/L 38 - 126 U/L [place] ALT [Catalytic activity/Vol] 23 U/L 0 - 34 U/L [place] Comment on above: The ALT test is perf ormed by an updated assay method. Please note that the reference intervals have been changed and are now sex specific. Anion gap [Moles/Vol] 6 mmol/L [place] AST [Catalytic activity/Vol] 34 U/L 15 - 46 U/L [place] Bilirubin Ql (U) 0.3 mg/dL 0.2 - 1.3 mg/dL [place] Calcium [Mass/Vol] 6.8 mg/dL Low 8.4 - 10. 4 mg/dL [place] Chloride [Moles/Vol] 105 mmol/L 98 - 10 7 mmol/L [place] CO2 [Moles/Vol] 22 mmol/L 22 - 30 mmol/L [place] Creatinine [Mass/Vol] 0.56 mg/dL 0.52 - 1.25 mg/dL [place] EGFR IF NonAfrican [place]ij[place] >90.0 >60 mL/min [place] Comment on above: KDIGO guidelines pro vide the following GFR categories: Stage GFR(ml/min/1.73 m2) Terms G1 >=90 Normal or high G2 60-89 Mildly decreased* G3a 45-59 Mildly to moderately decreased G3b 30-44 Moderately to severely decreased G4 15-29 Severely decreased G5 <15 Kidney failure *Relative to young adult level. In the absence of evidence of kidney damage, neither GFR category G1 nor G2 fulfill the criteria for CKD. The CKD-EPI equation is validated in individuals 18 years of age and older. Currently the best equation for estimating glomerular filtration rate (GFR) from serum creatinine in children is the Bedside Jason equation. It is less accurate in patients with extremes of muscle mass, restriction of dietary protein, ingestion of creatine, extra-renal metabolism of creatinine, or treatment with medications that affect renal tubular creatinine secretion. GFR/1.73 sq M predicted among blacks MDRD (S/P/Bld) [Vol rate/Area] mL/min/{1.73_m2} >60 mL/min [place] Glucose [Mass/Vol] 150 mg/dL High 70 - 100 mg/dL [place], [place] Interpretation and review of laboratory results Abnormal [place] Potassium [Moles/Vol] 4.2 mmol/L 3.5 - 5.1 mmol/L [place] Protein [Mass/Vol] 5.7 g/dL Low 6.3 - 8.2 g/dL [place], [place] Sodium [Moles/Vol] 132 mmol/L Low 135 - 145 mmol/L [place] Urea nitrogen [Mass/Vol] 16 mg/dL 7 - 20 mg/dL [place] Test Performed by [facility], [address] [place] [id number] [place] Albumin [Mass/Vol] 3.0 g/dL Low 3.5 - 5 g/dL [place] ALP [Catalytic activity/Vol] 93 U/L 38 - 126 U/L [place] ALT [Catalytic activity/Vol] 22 U/L 0 - 34 U/L [place] Comment on above: The ALT test is perf ormed by an updated assay method. Please note that the reference intervals have been changed and are now sex specific. Anion gap [Moles/Vol] 5 mmol/L [place] AST [Catalytic activity/Vol] 29 U/L 15 - 46 U/L [place] Bilirubin Ql (U) 0.3 mg/dL 0.2 - 1.3 mg/dL [place] Calcium [Mass/Vol] 6.8 mg/dL Low 8.4 - 10. 4 mg/dL [place] Chloride [Moles/Vol] 101 mmol/L 98 - 10 7 mmol/L [place] CO2 [Moles/Vol] 24 mmol/L 22 - 30 mmol/L [place] Creatinine [Mass/Vol] 0.61 mg/dL 0.52 - 1.25 mg/dL [place] EGFR IF NonAfrican [place] >90.0 >60 mL/min [place] Comment on above: KDIGO guidelines pro vide the following GFR categories: Stage GFR(ml/min/1.73 m2) Terms G1 >=90 Normal or high G2 60-89 Mildly decreased* G3a 45-59 Mildly to moderately decreased G3b 30-44 Moderately to severely decreased G4 15-29 Severely decreased G5 <15 Kidney failure *Relative to young adult level. In the absence of evidence of kidney damage, neither GFR category G1 nor G2 fulfill the criteria for CKD. The CKD-EPI equation is validated in individuals 18 years of age and older. Currently the best equation for estimating glomerular filtration rate (GFR) from serum creatinine in children is the Bedside Jason equation. It is less accurate in patients with extremes of muscle mass, restriction of dietary protein, ingestion of creatine, extra-renal metabolism of creatinine, or treatment with medications that affect renal tubular creatinine secretion. GFR/1.73 sq M predicted among blacks MDRD (S/P/Bld) [Vol rate/Area] mL/min/{1.73_m2} >60 mL/min [place] Glucose [Mass/Vol] 124 mg/dL High 70 - 100 mg/dL [place] Potassium [Moles/Vol] 4.2 mmol/L 3.5 - 5.1 mmol/L [place] Protein [Mass/Vol] 6.2 g/dL Low 6.3 - 8.2 g/dL [place] Sodium [Moles/Vol] 130 mmol/L Low 135 - 145 mmol/L [place] Urea nitrogen [Mass/Vol] 12 mg/dL 7 - 20 mg/dL [place] Culture, Urineon 08-12-2020 Bacteria identified Cx Nom (U) Normal urogenital william present. [place] Test Performed by [facility], [address] [place] [id number] Specimen Source Comment:Urine, clean catch [place] Fibrinogenon 08-12-2020 Fibrinogen 410 mg/dL High 200 - 400 mg/dL [place] Interpretation and review of laboratory results Abnormal [place] Fibrinogen 440 mg/dL High 200-400 [facility] Comment on above: Performed By: #### H EMOG, MG3, FIBGN, CMP3, PT/AP #### [address] [id number] Fibrinogen 440 mg/dL High 200 - 400 mg/dL [place] Interpretation and review of laboratory results Abnormal [place] Fibrinogen 591 mg/dL High 200-400 [facility] Comment on above: Performed By: #### H EMOG, MG3, FIBGN, CMP3, PT/AP #### [address] [id number] Fibrinogen 591 mg/dL High 200 - 400 mg/dL [place] Interpretation and review of laboratory results Abnormal [place] HEMOGLOBIN AND HEMATOCRIT, B LOODon 08-12-2020 Hematocrit (Bld) [Volume fraction] 28.2 % Low 35 - 47 % [place] Hemoglobin (Bld) [Mass/Vol] 9.6 g/dL Low 11.7 - 16 g/dL [place] Interpretation and review of laboratory results Abnormal [place] Test Performed by [facility], [address] [place] [id number] [place] Hematologyon 08-12-2020 ABO and Rh group Nom (Bld) 7300 [place] ABO and Rh group Nom (Bld) 7300 [place] Hemoglobin AND Hematocriton 08-12-2020 Hematocrit (Bld) [Volume fraction] 28.2 % Low 35.0-47.0 [facility] Comment on above: Performed By: #### H EMOG, MG3, FIBGN, CMP3, PT/AP #### [address] [address] [address] [place] Hemoglobin (Bld) [Mass/Vol] 9.6 g/dL Low 11.7-16.0 [facility] Comment on above: Performed By: #### H EMOG, MG3, FIBGN, CMP3, PT/AP #### [address] [address] [address] [place] Hemogramon 08-12-2020 Erythrocyte distribution width (RBC) [Ratio] 13.9 % Normal 11.5-14.5 [facility] Comment on above: Performed By: #### H EMOG, MG3, FIBGN, CMP3, PT/AP #### [address] [address] [address] [place] Hematocrit (Bld) [Volume fraction] 26.5 % Low 35.0-47.0 [facility] Comment on above: Performed By: #### H EMOG, MG3, FIBGN, CMP3, PT/AP #### [address] [address] [address] [place] Hemoglobin (Bld) [Mass/Vol] 8.9 g/dL Low 11.7-16.0 [facility] Comment on above: Performed By: #### H EMOG, MG3, FIBGN, CMP3, PT/AP #### [address] [address] [address] [place] MCH (RBC) [Entitic mass] 29.8 pg Normal 26.0-34.0 [facility] Comment on above: Performed By: #### H EMOG, MG3, FIBGN, CMP3, PT/AP #### [address] [address] [address] [place] MCHC (RBC) [Mass/Vol] 33.7 % Normal 32.0-36.0 [facility] Comment on above: Performed By: #### H EMOG, MG3, FIBGN, CMP3, PT/AP #### [facility] [address], [place] MCV (RBC) [Entitic vol] 88.5 fL Normal 79.0-98.0 [facility] Comment on above: Performed By: #### H EMOG, MG3, FIBGN, CMP3, PT/AP #### [address] [address] [address] Platelet mean volume (Bld) [Entitic vol] 7.0 fL Low 7.4-10.4 [facility] Comment on above: Performed By: #### H EMOG, MG3, FIBGN, CMP3, PT/AP #### [address] [address] [address] [place] Platelets (Bld) [#/Vol] 306 10*3/uL Normal 140-440 [facility] Comment on above: Performed By: #### H EMOG, MG3, FIBGN, CMP3, PT/AP #### [address] [address] [address] [place] RBC (Bld) [#/Vol] 2.99 10*6/uL Low 3.80-5.20 [facility] Comment on above: Performed By: #### H EMOG, MG3, FIBGN, CMP3, PT/AP #### [address], [place] WBC (Bld) [#/Vol] 11.2 10*3/uL High 3.6-10.7 [facility] Comment on above: Performed By: #### H EMOG, MG3, FIBGN, CMP3, PT/AP #### [address] [place], [place] Leukodepleted Red Cellson Leukodepleted Red Cells Leukodepleted Red Cells: [id number] transfused 08/12/20 19:59 [facility] Unit Blood Type: B Unit Blood Rh: POS Blood Product Code: AS1 Unit Number: [id number] Unit Status: transfused Barcoded Unit Number: =[id number] Barcoded Product Code: = Barcoded ABO/Rh: =%7300 Unit Expiration: Unit Volume Transfused: 300 Unit Transfusion Start Date/Time: Leukodepleted Red Cells: [id number] transfused 08/12/20 19:00 [facility] Unit Blood Type: B Unit Blood Rh: POS Blood Product Code: AS1 Unit Number: [id number] Unit Status: transfused Barcoded Unit Number: =[id number] Barcoded Product Code: = Barcoded ABO/Rh: =%7300 Unit Expiration: Unit Volume Transfused: 300 Unit Transfusion Start Date/Time: [facility] Comment on above: Performed By: #### H EMOG, MG3, FIBGN, CMP3, PT/AP #### [address] [address] Leukodepleted Red Cells Leukodepleted Red Cells: [id number] transfused 08/12/20 13:54 [facility] Unit Blood Type: B Unit Blood Rh: POS Blood Product Code: AS1 Unit Number: [id number] Unit Status: transfused Barcoded Unit Number: =[id number] Barcoded Product Code: = Barcoded ABO/Rh: =%7300 Unit Expiration: Unit Volume Transfused: 300 Unit Transfusion Start Date/Time: Leukodepleted Red Cells: [id number] transfused 08/12/20 09:29 [facility] Unit Blood Type: B Unit Blood Rh: POS Blood Product Code: AS1 Unit Number: [id number] Unit Status: transfused Barcoded Unit Number: =[id number] Barcoded Product Code: = Barcoded ABO/Rh: =%7300 Unit Expiration: Unit Volume Transfused: 300 Unit Transfusion Start Date/Time: [facility] Comment on above: Performed By: #### H EMOG, MG3, FIBGN, CMP3, PT/AP #### [facility] [address] [place] [address] Magnesiumon 08-12-2020 Magnesium [Mass/Vol] 6.1 mg/dL Critically high 1.6-2.3 [facility] Comment on above: Performed By: #### H EMOG, MG3, FIBGN, CMP3, PT/AP #### [facility] [address] [place] [address] Magnesium [Mass/Vol] 6.1 mg/dL Critically high 1.6 - 2.3 mg/dL [place], [place] Metabolic Panelon 08-12-2020 Sodium [Moles/Vol] [id number] [place] Sodium [Moles/Vol] transfused [place] Sodium [Moles/Vol] [id number] mmol/L [place] Sodium [Moles/Vol] transfused [place] Sodium [Moles/Vol] [id number] [place] Otheron 08-12-2020 Test Performed by [facility], [address] [place] [id number] [place] [address] Test Performed by [id number] [place] [address] Interpretation and review of laboratory results Abnormal [place], [place] Test Performed by [address] Test Performed by [address] PREPARE FRESH FROZEN PLASMA, 1 Unitson 08-12-2020 ABO and Rh group Nom (Bld) 7300 [place], [place] Blood product unit ID (Dose) [#] [id number] [place] Sodium [Moles/Vol] [id number] [place] Sodium [Moles/Vol] transfused [place] Sodium [Moles/Vol] [id number] mmol/L [place], [place] PREPARE RBC (CROSSMATCH), 2 Unitson 08-12-2020 Blood product unit ID (Dose) [#] [id number] [place] Blood product unit ID (Dose) [#] [id number] [place], [place] Blood product unit ID (Dose) [#] [id number] [place] Blood product unit ID (Dose) [#] [id number] [place] Sodium [Moles/Vol] [id number] mmol/L [place] Sodium [Moles/Vol] [id number] mmol/L [place], [place] PROTIME/INR & PTTon 08-12-20 aPTT Coag (Bld) [Time] 25 s 20 - 30.5 s [place] Comment on above: NOTE: The therapeuti c time for Heparin anticoagulation, based on Xa activity inhibition, is an APTT of 46-80 seconds. INR Coag (PPP) [Relative time] 0.9 {INR} [place] Comment on above: Recommended Anticoag ulant Therapy: SEE BELOW ----- INR of 2.0 - 3.0 : - Prophylaxis of Venous Thrombosis (high-risk surgery) - Treatment of Venous Thrombosis - Treatment of Pulmonary Embolism (Includes tissue heart valves, Acute Myocardial Infarction to prevent systemic embolism, Valvular Heart Disease, and Atrial Fibrillation) ----- INR of 2.5 - 3.5 : - Mechanical Prosthetic Valves (high risk) - If oral anticoagulant therapy is used to prevent Myocardial Infarction PT Coag (PPP) [Time] 9.6 s 9 - 12 s [place] Comment on above: . aPTT Coag (Bld) [Time] 23.8 s 20 - 30.5 s [place] Comment on above: NOTE: The therapeuti c time for Heparin anticoagulation, based on Xa activity inhibition, is an APTT of 46-80 seconds. INR Coag (PPP) [Relative time] 0.9 {INR} [place] Comment on above: Recommended Anticoag ulant Therapy: SEE BELOW ----- INR of 2.0 - 3.0 : - Prophylaxis of Venous Thrombosis (high-risk surgery) - Treatment of Venous Thrombosis - Treatment of Pulmonary Embolism (Includes tissue heart valves, Acute Myocardial Infarction to prevent systemic embolism, Valvular Heart Disease, and Atrial Fibrillation) ----- INR of 2.5 - 3.5 : - Mechanical Prosthetic Valves (high risk) - If oral anticoagulant therapy is used to prevent Myocardial Infarction PT Coag (PPP) [Time] 9.5 s 9 - 12 s [place] Comment on above: . aPTT Coag (Bld) [Time] 25.2 s 20 - 30.5 s [place] Comment on above: NOTE: The therapeuti c time for Heparin anticoagulation, based on Xa activity inhibition, is an APTT of 46-80 seconds. INR Coag (PPP) [Relative time] 0.9 {INR} [place] Comment on above: Recommended Anticoag ulant Therapy: SEE BELOW ----- INR of 2.0 - 3.0 : - Prophylaxis of Venous Thrombosis (high-risk surgery) - Treatment of Venous Thrombosis - Treatment of Pulmonary Embolism (Includes tissue heart valves, Acute Myocardial Infarction to prevent systemic embolism, Valvular Heart Disease, and Atrial Fibrillation) ----- INR of 2.5 - 3.5 : - Mechanical Prosthetic Valves (high risk) - If oral anticoagulant therapy is used to prevent Myocardial Infarction PT Coag (PPP) [Time] 9.7 s 9 - 12 s [place] Comment on above: . Protime AND APTTon 0 aPTT Coag (Bld) [Time] 23.8 s Normal 20.0-30.5 [facility] Comment on above: Result Comment: NOTE : The therapeutic time for Heparin anticoagulation, based on Xa activity inhibition, is an APTT of 46-80 seconds. Performed By: #### H EMOG, MG3, FIBGN, CMP3, PT/AP #### [facility] [address] [place] [address] INR Coag (PPP) [Relative time] 0.9 Normal 0.9-1.1 [facility] [employer] [facility] Comment on above: Result Comment: Lb mmended Anticoagulant Therapy: SEE BELOW ----- INR of 2.0 - 3.0 : - Prophylaxis of Venous Thrombosis (high-risk surgery) - Treatment of Venous Thrombosis - Treatment of Pulmonary Embolism (Includes tissue heart valves, Acute Myocardial Infarction to prevent systemic embolism, Valvular Heart Disease, and Atrial Fibrillation) ----- INR of 2.5 - 3.5 : - Mechanical Prosthetic Valves (high risk) - If oral anticoagulant therapy is used to prevent Myocardial Infarction Performed By: #### H EMOG, MG3, FIBGN, CMP3, PT/AP #### [address] [place] [address] PT Coag (PPP) [Time] 9.5 s Normal 9.0-12.0 [facility] Comment on above: Result Comment: . Performed By: #### H EMOG, MG3, FIBGN, CMP3, PT/AP #### [address] aPTT Coag (Bld) [Time] 25.2 s Normal 20.0-30.5 [facility] Comment on above: Result Comment: NOTE : The therapeutic time for Heparin anticoagulation, based on Xa activity inhibition, is an APTT of 46-80 seconds. Performed By: #### H EMOG, MG3, FIBGN, CMP3, PT/AP #### [address] [place], [place] INR Coag (PPP) [Relative time] 0.9 Normal 0.9-1.1 [facility] Comment on above: Result Comment: Lb mmended Anticoagulant Therapy: SEE BELOW ----- INR of 2.0 - 3.0 : - Prophylaxis of Venous Thrombosis (high-risk surgery) - Treatment of Venous Thrombosis - Treatment of Pulmonary Embolism (Includes tissue heart valves, Acute Myocardial Infarction to prevent systemic embolism, Valvular Heart Disease, and Atrial Fibrillation) ----- INR of 2.5 - 3.5 : - Mechanical Prosthetic Valves (high risk) - If oral anticoagulant therapy is used to prevent Myocardial Infarction Performed By: #### H EMOG, MG3, FIBGN, CMP3, PT/AP #### [address] [address] PT Coag (PPP) [Time] 9.7 s Normal 9.0-12.0 [facility] Comment on above: Result Comment: . Performed By: #### H EMOG, MG3, FIBGN, CMP3, PT/AP #### [address] [address] Single Donor Plasma (CP2D)on 08-12-2020 Single Donor Plasma (CP2D) Thawed Plasma - 5 Day: [id number] transfused 08/12/20 19:35 [facility] Unit Blood Type: B Unit Blood Rh: POS Blood Product Code: 6T5 Unit Number: [id number] Unit Status: transfused Barcoded Unit Number: =[id number] Barcoded Product Code: = Barcoded ABO/Rh: =%7300 Unit Expiration: Unit Volume Transfused: 216 Unit Transfusion Start Date/Time: Normal [facility] Comment on above: Performed By: #### H EMOG, MG3, FIBGN, CMP3, PT/AP #### [address] [address] C. Trachomatis / N. Gonorrho eae, DNA Probeon 08-11-2020 C. trachomatis DNA PADMINI+probe Ql (Genital specimen) NOT Detected Chlamydia trachomatis Nucleic Acid NOT Detected by DNA Amplification using the Cepheid System. Culture is the only recommended test in medical-legal cases such as suspected child abuse or molestation. [place] N. gonorrhoeae DNA PADMINI+probe Ql (Unsp spec) NOT Detected Neisseria gonorrhoeae Nucleic Acid NOT Detected by DNA Amplification using the Cepheid System. Culture is the only recommended test in medical-legal cases such as suspected child abuse or molestation. [place], [place] Test Performed by [facility], [address] [place] [id number] Specimen Source Comment:Urine voided [place], [place] CBCon 08-11-2020 Erythrocyte distribution width (RBC) [Ratio] 14.1 % 11.5 - 14.5 % [place] Hematocrit (Bld) [Volume fraction] 27.8 % Low 35 - 47 % [place] Hemoglobin (Bld) [Mass/Vol] 9.6 g/dL Low 11.7 - 16 g/dL [place] Interpretation and review of laboratory results Abnormal [place] MCH (RBC) [Entitic mass] 30.3 pg 26 - 34 pg [place] MCHC (RBC) [Mass/Vol] 34.7 % 32 - 36 % [place] MCV (RBC) [Entitic vol] 87.3 fL 79 - 98 fL [place] Platelet mean volume (Bld) [Entitic vol] 7.1 fL Low 7.4 - 10.4 fL [place], [place] Platelets (Bld) [#/Vol] 312 10*3/uL 140 - 440 10*3/uL [place] RBC (Bld) [#/Vol] 3.18 10*6/uL Low 3.8 - 5.2 10*6/uL [place] WBC (Bld) [#/Vol] 13.1 10*3/uL High 3.6 - 10.7 10*3/uL [place] Test Performed by [facility], [address] [place] [address] [place], [place] Chlamydia and GC PCR Panelon 08-11-2020 Chlamydia and GC PCR Panel Chlamydia trachomatis PCR --> Status: F NOT Detected Chlamydia trachomatis Nucleic Acid NOT Detected by DNA Amplification using the Cepheid System. Culture is the only recommended test in medical-legal cases such as suspected child abuse or molestation. Chlamydia trachomatis Nucleic Acid NOT Detected by DNA Amplification using the Cepheid System. Culture is the only recommended test in medical-legal cases such as suspected child abuse or molestation. Neisseria gonorrhoeae PCR --> Status: F NOT Detected Neisseria gonorrhoeae Nucleic Acid NOT Detected by DNA Amplification using the Cepheid System. Culture is the only recommended test in medical-legal cases such as suspected child abuse or molestation. Neisseria gonorrhoeae Nucleic Acid NOT Detected by DNA Amplification using the Cepheid System. Culture is the only recommended test in medical-legal cases such as suspected child abuse or molestation. Normal [facility] Comment on above: Order Comment: Speci men Source Comment:Urine voided Performed By: #### H EMOG, MG3, FIBGN, CMP3, PT/AP #### [address] [address] Comp Metabolic Panelon 08-11 ALP [Catalytic activity/Vol] 102 U/L Normal 38-126 [facility] Comment on above: Performed By: #### H EMOG, MG3, FIBGN, CMP3, PT/AP #### [address], [place] ALT [Catalytic activity/Vol] 19 U/L Normal 0-34 [facility] Comment on above: Result Comment: The ALT test is performed by an updated assay method. Please note that the reference intervals have been changed and are now sex specific. Performed By: #### H EMOG, MG3, FIBGN, CMP3, PT/AP #### [address], [place] Calcium [Mass/Vol] 9.2 mg/dL Normal 8.4-10.4 [facility] Comment on above: Performed By: #### H EMOG, MG3, FIBGN, CMP3, PT/AP #### [address], [place] Anion gap [Moles/Vol] 8 Normal [facility] Comment on above: Performed By: #### H EMOG, MG3, FIBGN, CMP3, PT/AP #### [address], [place] AST [Catalytic activity/Vol] 33 U/L Normal 15-46 [facility] Comment on above: Performed By: #### H EMOG, MG3, FIBGN, CMP3, PT/AP #### [address], [place] Bilirubin [Mass/Vol] 0.4 mg/dL Normal 0.2-1.3 [facility] Comment on above: Performed By: #### H EMOG, MG3, FIBGN, CMP3, PT/AP #### [address], [place] CO2 [Moles/Vol] 23 mmol/L Normal 22-30 [facility] Comment on above: Performed By: #### H EMOG, MG3, FIBGN, CMP3, PT/AP #### [address] [place], [place] Creatinine [Mass/Vol] 0.57 mg/dL Normal 0.52-1.25 [facility] Comment on above: Performed By: #### H EMOG, MG3, FIBGN, CMP3, PT/AP #### [facility] [address], [place] GFR/1.73 sq M predicted among blacks MDRD (S/P/Bld) [Vol rate/Area] mL/min/{1.73_m2} Normal >60 [facility] Comment on above: Performed By: #### H EMOG, MG3, FIBGN, CMP3, PT/AP #### [address] GFR/1.73 sq M predicted among non-blacks MDRD (S/P/Bld) [Vol rate/Area] mL/min/{1.73_m2} Normal >60 [facility] Comment on above: Result Comment: KDIG O guidelines provide the following GFR categories: Stage GFR(ml/min/1.73 m2) Terms G1 >=90 Normal or high G2 60-89 Mildly decreased* G3a 45-59 Mildly to moderately decreased G3b 30-44 Moderately to severely decreased G4 15-29 Severely decreased G5 <15 Kidney failure *Relative to young adult level. In the absence of evidence of kidney damage, neither GFR category G1 nor G2 fulfill the criteria for CKD. The CKD-EPI equation is validated in individuals 18 years of age and older. Currently the best equation for estimating glomerular filtration rate (GFR) from serum creatinine in children is the Bedside Jason equation. It is less accurate in patients with extremes of muscle mass, restriction of dietary protein, ingestion of creatine, extra-renal metabolism of creatinine, or treatment with medications that affect renal tubular creatinine secretion. Performed By: #### H EMOG, MG3, FIBGN, CMP3, PT/AP #### [facility] [address], [place] Glucose [Mass/Vol] 98 mg/dL Normal 70-100 [facility] Comment on above: Performed By: #### H EMOG, MG3, FIBGN, CMP3, PT/AP #### [facility] [address], [place] Protein [Mass/Vol] 6.7 g/dL Normal 6.3-8.2 [facility] Comment on above: Performed By: #### H EMOG, MG3, FIBGN, CMP3, PT/AP #### [facility] [address], [place] Urea nitrogen [Mass/Vol] 9 mg/dL Normal 7-20 [facility] Comment on above: Performed By: #### H EMOG, MG3, FIBGN, CMP3, PT/AP #### [address] [place], [place] Potassium [Moles/Vol] 3.8 mmol/L Normal 3.5-5.1 [facility] Comment on above: Performed By: #### H EMOG, MG3, FIBGN, CMP3, PT/AP #### [address], [place] Sodium [Moles/Vol] 134 mmol/L Low 135-145 [facility] Comment on above: Performed By: #### H EMOG, MG3, FIBGN, CMP3, PT/AP #### [address] Albumin [Mass/Vol] 3.2 g/dL Low 3.5-5.0 [facility] Comment on above: Performed By: #### H EMOG, MG3, FIBGN, CMP3, PT/AP #### [address], [place] Chloride [Moles/Vol] 103 mmol/L Normal 98-107 [facility] Comment on above: Performed By: #### H EMOG, MG3, FIBGN, CMP3, PT/AP #### [address], [place] Comprehensive Metabolic Pane iman 08-11-2020 Albumin [Mass/Vol] 3.2 g/dL Low 3.5 - 5 g/dL [facility] [place], [place] ALP [Catalytic activity/Vol] 102 U/L 38 - 126 U/L [place] ALT [Catalytic activity/Vol] 19 U/L 0 - 34 U/L [place] Comment on above: The ALT test is perf ormed by an updated assay method. Please note that the reference intervals have been changed and are now sex specific. Anion gap [Moles/Vol] 8 mmol/L [place], [place] AST [Catalytic activity/Vol] 33 U/L 15 - 46 U/L [place] Bilirubin Ql (U) 0.4 mg/dL 0.2 - 1.3 mg/dL [place] Calcium [Mass/Vol] 9.2 mg/dL 8.4 - 10. 4 mg/dL [place] Chloride [Moles/Vol] 103 mmol/L 98 - 10 7 mmol/L [place] CO2 [Moles/Vol] 23 mmol/L 22 - 30 mmol/L [place] Creatinine [Mass/Vol] 0.57 mg/dL 0.52 - 1.25 mg/dL [place] EGFR IF NonAfrican [place]ij[place] >90.0 >60 mL/min [place] Comment on above: KDIGO guidelines pro vide the following GFR categories: Stage GFR(ml/min/1.73 m2) Terms G1 >=90 Normal or high G2 60-89 Mildly decreased* G3a 45-59 Mildly to moderately decreased G3b 30-44 Moderately to severely decreased G4 15-29 Severely decreased G5 <15 Kidney failure *Relative to young adult level. In the absence of evidence of kidney damage, neither GFR category G1 nor G2 fulfill the criteria for CKD. The CKD-EPI equation is validated in individuals 18 years of age and older. Currently the best equation for estimating glomerular filtration rate (GFR) from serum creatinine in children is the Bedside Jason equation. It is less accurate in patients with extremes of muscle mass, restriction of dietary protein, ingestion of creatine, extra-renal metabolism of creatinine, or treatment with medications that affect renal tubular creatinine secretion. GFR/1.73 sq M predicted among blacks MDRD (S/P/Bld) [Vol rate/Area] mL/min/{1.73_m2} >60 mL/min [place], [place] Glucose [Mass/Vol] 98 mg/dL 70 - 100 mg/dL [facility] [place] [place] Interpretation and review of laboratory results Abnormal [place] Potassium [Moles/Vol] 3.8 mmol/L 3.5 - 5.1 mmol/L [place] Protein [Mass/Vol] 6.7 g/dL 6.3 - 8.2 g/dL [place], [place] Sodium [Moles/Vol] 134 mmol/L Low 135 - 145 mmol/L [place], [place] Urea nitrogen [Mass/Vol] 9 mg/dL 7 - 20 mg/dL [place] Test Performed by [facility], [address] [place] [id number] [place] [address] Fibrinogenon 08-11-2020 Fibrinogen 587 mg/dL High 200-400 [facility] Comment on above: Performed By: #### H EMOG, MG3, FIBGN, CMP3, PT/AP #### [address] Fibrinogen 587 mg/dL High 200 - 400 mg/dL [place] Interpretation and review of laboratory results Abnormal [place] Hemogramon 08-11-2020 Erythrocyte distribution width (RBC) [Ratio] 14.1 % Normal 11.5-14.5 [facility] Comment on above: Performed By: #### H EMOG, MG3, FIBGN, CMP3, PT/AP #### [address] Hematocrit (Bld) [Volume fraction] 27.8 % Low 35.0-47.0 [facility] Comment on above: Performed By: #### H EMOG, MG3, FIBGN, CMP3, PT/AP #### [address] Hemoglobin (Bld) [Mass/Vol] 9.6 g/dL Low 11.7-16.0 [facility] Comment on above: Performed By: #### H EMOG, MG3, FIBGN, CMP3, PT/AP #### [address] MCH (RBC) [Entitic mass] 30.3 pg Normal 26.0-34.0 [facility] Comment on above: Performed By: #### H EMOG, MG3, FIBGN, CMP3, PT/AP #### [address] [place] MCHC (RBC) [Mass/Vol] 34.7 % Normal 32.0-36.0 [facility] Comment on above: Performed By: #### H EMOG, MG3, FIBGN, CMP3, PT/AP #### [address] [place] MCV (RBC) [Entitic vol] 87.3 fL Normal 79.0-98.0 [facility] Comment on above: Performed By: #### H EMOG, MG3, FIBGN, CMP3, PT/AP #### [address] [place], [place] Platelet mean volume (Bld) [Entitic vol] 7.1 fL Low 7.4-10.4 [facility] Comment on above: Performed By: #### H EMOG, MG3, FIBGN, CMP3, PT/AP #### [address] [place], [place] Platelets (Bld) [#/Vol] 312 10*3/uL Normal 140-440 [facility] Comment on above: Performed By: #### H EMOG, MG3, FIBGN, CMP3, PT/AP #### [address] [place] RBC (Bld) [#/Vol] 3.18 10*6/uL Low 3.80-5.20 [facility] Comment on above: Performed By: #### H EMOG, MG3, FIBGN, CMP3, PT/AP #### [address] WBC (Bld) [#/Vol] 13.1 10*3/uL High 3.6-10.7 [facility] Comment on above: Performed By: #### H EMOG, MG3, FIBGN, CMP3, PT/AP #### [address] [address] [facility] US Complete w/ detailon 08-11-2020 [facility] US Complete w/detail Patient Name: CYNTHIA MOLINA Maternal Medicine Exam Date/Time 08/11/2020 09:19:43 EST Exam [facility] US Complete w/detail Ordering Physician DO MENDOZA DEREK Accession Number [id number] Reason For Exam vaginal bleeding Report OBSTETRICS REPORT (Signed Final 08/11/2020 03:02 pm) Patient Info ID #: [id number] : [birth year] (39 yrs) Name: CYNTHIA MOLINA Visit Date: 08/11/2020 09:21 am Performed By Performed By: Chelsea Melo Referred By: MYRTLE MENDOZA [facility] Attending: Ana Laura Nina Location: [facility], [facility] Service(s) Provided US Level II complete (Targeted OB) 82025 Indications Vaginal Bleeding Fiboids Club Foot Advanced maternal age Evaluation Num Of Fetuses: 1 Heart 161 Rate(bpm): Cardiac Activity: Present Lie: Longitudinal Presentation: Breech Placenta: Fundal P. Cord Insertion: Not seen Amniotic Fluid EDEN FV: Oligohydramnios Larg Pckt: 3.41 cm Comment: There appears to be an abruption anteriorly. Biometry -------- BPD: 47.6 mm G. Age: 20w 3d < 3 % CI: 66.8 % 70 - 86 OFD: 71.3 mm FL/HC: 20.3 % 19.2 - 20.8 HC: 191 mm G. Age: 21w 3d < 3 % HC/AC: 1.01 1.05 - 1.21 AC: 189.6 mm G. Age: 23w 5d 55 % FL/BPD: 81.5 % 71 - 87 FL: 38.8 mm G. Age: 22w 3d 16 % FL/AC: 20.5 % 20 - 24 HUM: 37.8 mm G. Age: 23w 2d 43 % LV: 3.67 mm RIGHT HUM: 37.8 mm G. Age: 23w 2d 43 % FL: 38.8 mm G. Age: 22w 3d 16 % TIB: 33.6 mm G. Age: 22w 3d 28 % LEFT Est. FW: 539 gm 1 lb 3 oz 37 % Gestational Age Clinical MARIA DOLORES: 23w 2d MARIA DOLORES: 12/06/20 U/S Today: 22w 0d MARIA DOLORES: 12/15/20 Best: 23w 2d Det. By: Clinical MARIA DOLORES MARIA DOLORES: 12/06/20 Anatomy ------- Palate: Normal appearance Targeted Anatomy Central Nervous System Calvarium: Suboptimal views Cerebellum: Suboptimal views Intracranial: Suboptimal views Choroid Plexus: Abnormal Cavum: Normal appearance Cisterna Magna: Suboptimal views Lat. Ventricles: Normal appearance Spine Cervical: Suboptimal views Lumbar: Suboptimal views Thoracic: Suboptimal views Sacral: Suboptimal views Head/Neck Face: Suboptimal views Eyes: Normal appearance Lips: Cleft lip Neck: Suboptimal views Nuchal Fold: Suboptimal views Profile: Abnormal Thorax Thoracic Normal appearance Aortic Arch: Normal appearance Contour: Lungs: Normal appearance Ductal Arch: Normal appearance Four Chamber: Normal appearance Cardiac Rhythm: Normal appearance Cardiac Motion: Observed Cardiac Johnson: Normal appearance R Outflow Tract: Normal appearance 3 Vessel View: Suboptimal views L Outflow Tract: Normal appearance Diaphragm: Normal appearance Abdomen Ventral Wall: Normal appearance Rt Kidney: Normal appearance Stomach: Normal appearance Bladder: Normal appearance Situs: Normal appearance Bowel: Echogenic Bowel Liver: Normal appearance Spleen: Normal appearance Lt Kidney: Normal appearance Extremities Lt Humerus: Normal appearance Lt Femur: Normal appearance Rt Humerus: Normal appearance Rt Femur: Normal appearance Lt Forearm: Normal appearance Lt Lower Leg: Normal appearance Rt Forearm: Normal appearance Rt Lower Leg: Normal appearance Lt Hand: Suboptimal views Lt Foot: Suboptimal views Rt Hand: Suboptimal views Rt Foot: Suboptimal views Other Umbilical Cord: Normal 3-vessel Cord Insertion: Normal appearance Genitalia: Female Comment: pericardial effusion 3.7mm Cervix Uterus Adnexa Left Ovary Not visualized Right Ovary Size(cm) 2.69 2.45 1.32 Vol(ml): 4.6 Normal in size and appearance Comment: Multiple Fibroids. Largest two were measured. Myomas ------ Site L(cm) W(cm) D(cm) Location 15.6 11.5 10.36 OSCAR 10.03 8.11 9.3 LUQ Blood Flow RI PI Comments Impression 1. Betancourt live intrauterine at 23w 2 in breech presentation. 2. Normal growth; EFW 539 grams, which is at the 37% for this gestational age. 3. Multiple large uterine fibroids, suspect difficult delivery due to location and size of the fibroids. 4. Hematoma present concerning for abruption. 5. Cleft lip. 6. Small pericaridal effusion. 7. Dolicocephalic head shape, could be due to breech presentation or compression from the fibroids. 8. Skin line difficult to visualize at the back of the head. 9. 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 10. Oligohydramnios. Recommendations See inpatient chart. Ultrasound is not diagnostic of chromosomal aneuploidy and does not detect all subtle defects. Normal ultrasound findings do not guarantee normal outcomes. Ana Laura Nina DO, FACOG Electronically Signed Final Report 08/11/2020 03:02 pm Final Dictated: 08/11/2020 9:21 am Dictating Physician: DO NINA KATHERINE BRIDGET Signed Date and Time: 08/11/2020 3:03 pm Signed by: DO NINA KATHERINE BRIDGET Normal [facility] Otheron 08-11-2020 Test Performed by [facility], [address] [place] [id number] [place] [address] PROTIME/INR & PTTon 08-11-20 20 aPTT Coag (Bld) [Time] 24.5 s 20 - 30.5 s [place], [place] Comment on above: NOTE: The therapeuti c time for Heparin anticoagulation, based on Xa activity inhibition, is an APTT of 46-80 seconds. INR Coag (PPP) [Relative time] {INR} [place], [place] Comment on above: Recommended Anticoag ulant Therapy: SEE BELOW ----- INR of 2.0 - 3.0 : - Prophylaxis of Venous Thrombosis (high-risk surgery) - Treatment of Venous Thrombosis - Treatment of Pulmonary Embolism (Includes tissue heart valves, Acute Myocardial Infarction to prevent systemic embolism, Valvular Heart Disease, and Atrial Fibrillation) ----- INR of 2.5 - 3.5 : - Mechanical Prosthetic Valves (high risk) - If oral anticoagulant therapy is used to prevent Myocardial Infarction PT Coag (PPP) [Time] 9.7 s 9 - 12 s [place], [place] Comment on above: . Protime AND APTTon 0 INR Coag (PPP) [Relative time] {INR} Normal 0.9-1.1 [facility] [facility] Comment on above: Result Comment: Lb mmended Anticoagulant Therapy: SEE BELOW ----- INR of 2.0 - 3.0 : - Prophylaxis of Venous Thrombosis (high-risk surgery) - Treatment of Venous Thrombosis - Treatment of Pulmonary Embolism (Includes tissue heart valves, Acute Myocardial Infarction to prevent systemic embolism, Valvular Heart Disease, and Atrial Fibrillation) ----- INR of 2.5 - 3.5 : - Mechanical Prosthetic Valves (high risk) - If oral anticoagulant therapy is used to prevent Myocardial Infarction Performed By: #### H EMOG, MG3, FIBGN, CMP3, PT/AP #### [facility] [address] [place] [address] PT Coag (PPP) [Time] 9.7 s Normal 9.0-12.0 [facility] [employer] [facility] Comment on above: Result Comment: . Performed By: #### H EMOG, MG3, FIBGN, CMP3, PT/AP #### [facility] [employer] [facility] [address] [place] [address] aPTT Coag (Bld) [Time] 24.5 s Normal 20.0-30.5 [facility] [employer] [facility] Comment on above: Result Comment: NOTE : The therapeutic time for Heparin anticoagulation, based on Xa activity inhibition, is an APTT of 46-80 seconds. Performed By: #### H EMOG, MG3, FIBGN, CMP3, PT/AP #### [facility] [address] [place] [address] TS GELon 08-11-2020 TS GEL ABO Group: B Rh, Gel: POS Antibody Screen Gel: NEG Normal [facility] Comment on above: Performed By: #### H EMOG, MG3, FIBGN, CMP3, PT/AP #### [facility] [address] [place] [address] TYPE AND SCREENon 08-11-2020 Sodium [Moles/Vol] Positive [place], [place] Sodium [Moles/Vol] B [employer] [place], [place] Sodium [Moles/Vol] Negative [place], [place] Test Performed by [facility], [address] [place] [address] [place], [place] US OB DETAIL ANATOMY S NAZIA OR FIRST GESTATIONon 08-11-2020 Patient Name: CYNTHIA MOLINA ---Maternal Medicine--- Exam Date/Time 08/11/2020 09:19:43 EST Exam MFM US Complete w/detail Ordering Physician DO MENDOZA DEREK Accession Number [id number] Reason For Exam vaginal bleeding Report OBSTETRICS REPORT (Signed Final 08/11/2020 03:02 pm) Patient Info ID #: [id number] : [birth year] (39 yrs) Name: CYNTHIA MOLINA Visit Date: 08/11/2020 09:21 am Performed By Performed By: Chelsea Melo Referred By: MYRTLE MENDOZA [facility] Attending: Ana Laura Nina Location: [facility], [facility] Service(s) Provided US Level II complete (Targeted OB) 23086 Indications Vaginal Bleeding Fiboids Club Foot Advanced maternal age Evaluation Num Of Fetuses: 1 Heart 161 Rate(bpm): Cardiac Activity: Present Lie: Longitudinal Presentation: Breech Placenta: Fundal P. Cord Insertion: Not seen Amniotic Fluid EDEN FV: Oligohydramnios Larg Pckt: 3.41 cm Comment: There appears to be an abruption anteriorly. Biometry -------- BPD: 47.6 mm G. Age: 20w 3d < 3 % CI: 66.8 % 70 - 86 OFD: 71.3 mm FL/HC: 20.3 % 19.2 - 20.8 HC: 191 mm G. Age: 21w 3d < 3 % HC/AC: 1.01 1.05 - 1.21 AC: 189.6 mm G. Age: 23w 5d 55 % FL/BPD: 81.5 % 71 - 87 FL: 38.8 mm G. Age: 22w 3d 16 % FL/AC: 20.5 % 20 - 24 HUM: 37.8 mm G. Age: 23w 2d 43 % LV: 3.67 mm RIGHT HUM: 37.8 mm G. Age: 23w 2d 43 % FL: 38.8 mm G. Age: 22w 3d 16 % TIB: 33.6 mm G. Age: 22w 3d 28 % LEFT Est. FW: 539 gm 1 lb 3 oz 37 % Gestational Age Clinical MARIA DOLORES: 23w 2d MARIA DOLORES: 12/06/20 U/S Today: 22w 0d MARIA DOLORES: 12/15/20 Best: 23w 2d Det. By: Clinical MARIA DOLORES MARIA DOLORES: 12/06/20 Anatomy ------- Palate: Normal appearance Targeted Anatomy Central Nervous System Calvarium: Suboptimal views Cerebellum: Suboptimal views Intracranial: Suboptimal views Choroid Plexus: Abnormal Cavum: Normal appearance Cisterna Magna: Suboptimal views Lat. Ventricles: Normal appearance Spine Cervical: Suboptimal views Lumbar: Suboptimal views Thoracic: Suboptimal views Sacral: Suboptimal views Head/Neck Face: Suboptimal views Eyes: Normal appearance Lips: Cleft lip Neck: Suboptimal views Nuchal Fold: Suboptimal views Profile: Abnormal Thorax Thoracic Normal appearance Aortic Arch: Normal appearance Contour: Lungs: Normal appearance Ductal Arch: Normal appearance Four Chamber: Normal appearance Cardiac Rhythm: Normal appearance Cardiac Motion: Observed Cardiac Johnson: Normal appearance R Outflow Tract: Normal appearance 3 Vessel View: Suboptimal views L Outflow Tract: Normal appearance Diaphragm: Normal appearance Abdomen Ventral Wall: Normal appearance Rt Kidney: Normal appearance Stomach: Normal appearance Bladder: Normal appearance Situs: Normal appearance Bowel: Echogenic Bowel Liver: Normal appearance Spleen: Normal appearance Lt Kidney: Normal appearance Extremities Lt Humerus: Normal appearance Lt Femur: Normal appearance Rt Humerus: Normal appearance Rt Femur: Normal appearance Lt Forearm: Normal appearance Lt Lower Leg: Normal appearance Rt Forearm: Normal appearance Rt Lower Leg: Normal appearance Lt Hand: Suboptimal views Lt Foot: Suboptimal views Rt Hand: Suboptimal views Rt Foot: Suboptimal views Other Umbilical Cord: Normal 3-vessel Cord Insertion: Normal appearance Genitalia: Female Comment: pericardial effusion 3.7mm Cervix Uterus Adnexa Left Ovary Not visualized Right Ovary Size(cm) 2.69 2.45 1.32 Vol(ml): 4.6 Normal in size and appearance Comment: Multiple Fibroids. Largest two were measured. Myomas ------ Site L(cm) W(cm) D(cm) Location 15.6 11.5 10.36 OSCAR 10.03 8.11 9.3 LUQ Blood Flow RI PI Comments Impression 1. Betancourt live intrauterine at 23w 2 in breech presentation. 2. Normal growth; EFW 539 grams, which is at the 37% for this gestational age. 3. Multiple large uterine fibroids, suspect difficult delivery due to location and size of the fibroids. 4. Hematoma present concerning for abruption. 5. Cleft lip. 6. Small pericaridal effusion. 7. Dolicocephalic head shape, could be due to breech presentation or compression from the fibroids. 8. Skin line difficult to visualize at the back of the head. 9. 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 10. Oligohydramnios. Recommendations See inpatient chart. Ultrasound is not diagnostic of chromosomal aneuploidy and does not detect all subtle defects. Normal ultrasound findings do not guarantee normal outcomes. Ana Laura Nina DO, FACOG Electronically Signed Final Report 08/11/2020 03:02 pm --- Final --- Dictated: 08/11/2020 9:21 am Dictating Physician: DO NINA KATHERINE BRIDGET Signed Date and Time: 08/11/2020 3:03 pm Signed by: DO NINA KATHERINE BRIDGET [place], [place] [facility] In[facility] Radiology Results From [facility] - 08/11/2020 3:04 PM EST Patient Name: CYNTHIA MOLINA ---Maternal Medicine--- Exam Date/Time 08/11/2020 09:19:43 EST Exam MFM US Complete w/detail Ordering Physician DO MENDOZA DEREK Accession Number [id number] Reason For Exam vaginal bleeding Report OBSTETRICS REPORT (Signed Final 08/11/2020 03:02 pm) Patient Info ID #: [id number] : [birth year] (39 yrs) Name: CYNTHIA MOLINA Visit Date: 08/11/2020 09:21 am Performed By Performed By: Chelsea Melo Referred By: MYRTLE MENDOZA [facility] Attending: Ana Laura Nina Location: [facility] Service(s) Provided US Level II complete (Targeted OB) 17789 Indications Vaginal Bleeding Fiboids Club Foot Advanced maternal age Evaluation Num Of Fetuses: 1 Heart 161 Rate(bpm): Cardiac Activity: Present Lie: Longitudinal Presentation: Breech Placenta: Fundal P. Cord Insertion: Not seen Amniotic Fluid EDEN FV: Oligohydramnios Larg Pckt: 3.41 cm Comment: There appears to be an abruption anteriorly. Biometry -------- BPD: 47.6 mm G. Age: 20w 3d < 3 % CI: 66.8 % 70 - 86 OFD: 71.3 mm FL/HC: 20.3 % 19.2 - 20.8 HC: 191 mm G. Age: 21w 3d < 3 % HC/AC: 1.01 1.05 - 1.21 AC: 189.6 mm G. Age: 23w 5d 55 % FL/BPD: 81.5 % 71 - 87 FL: 38.8 mm G. Age: 22w 3d 16 % FL/AC: 20.5 % 20 - 24 HUM: 37.8 mm G. Age: 23w 2d 43 % LV: 3.67 mm RIGHT HUM: 37.8 mm G. Age: 23w 2d 43 % FL: 38.8 mm G. Age: 22w 3d 16 % TIB: 33.6 mm G. Age: 22w 3d 28 % LEFT Est. FW: 539 gm 1 lb 3 oz 37 % Gestational Age Clinical MARIA DOLORES: 23w 2d MARIA DOLORES: 12/06/20 U/S Today: 22w 0d MARIA DOLORES: 12/15/20 Best: 23w 2d Det. By: Clinical MARIA DOLORES MARIA DOLORES: 12/06/20 Anatomy ------- Palate: Normal appearance Targeted Anatomy Central Nervous System Calvarium: Suboptimal views Cerebellum: Suboptimal views Intracranial: Suboptimal views Choroid Plexus: Abnormal Cavum: Normal appearance Cisterna Magna: Suboptimal views Lat. Ventricles: Normal appearance Spine Cervical: Suboptimal views Lumbar: Suboptimal views Thoracic: Suboptimal views Sacral: Suboptimal views Head/Neck Face: Suboptimal views Eyes: Normal appearance Lips: Cleft lip Neck: Suboptimal views Nuchal Fold: Suboptimal views Profile: Abnormal Thorax Thoracic Normal appearance Aortic Arch: Normal appearance Contour: Lungs: Normal appearance Ductal Arch: Normal appearance Four Chamber: Normal appearance Cardiac Rhythm: Normal appearance Cardiac Motion: Observed Cardiac Johnson: Normal appearance R Outflow Tract: Normal appearance 3 Vessel View: Suboptimal views L Outflow Tract: Normal appearance Diaphragm: Normal appearance Abdomen Ventral Wall: Normal appearance Rt Kidney: Normal appearance Stomach: Normal appearance Bladder: Normal appearance Situs: Normal appearance Bowel: Echogenic Bowel Liver: Normal appearance Spleen: Normal appearance Lt Kidney: Normal appearance Extremities Lt Humerus: Normal appearance Lt Femur: Normal appearance Rt Humerus: Normal appearance Rt Femur: Normal appearance Lt Forearm: Normal appearance Lt Lower Leg: Normal appearance Rt Forearm: Normal appearance Rt Lower Leg: Normal appearance Lt Hand: Suboptimal views Lt Foot: Suboptimal views Rt Hand: Suboptimal views Rt Foot: Suboptimal views Other Umbilical Cord: Normal 3-vessel Cord Insertion: Normal appearance Genitalia: Female Comment: pericardial effusion 3.7mm Cervix Uterus Adnexa Left Ovary Not visualized Right Ovary Size(cm) 2.69 2.45 1.32 Vol(ml): 4.6 Normal in size and appearance Comment: Multiple Fibroids. Largest two were measured. Myomas ------ Site L(cm) W(cm) D(cm) Location 15.6 11.5 10.36 OSCAR 10.03 8.11 9.3 LUQ Blood Flow RI PI Comments Impression 1. Betancourt live intrauterine at 23w 2 in breech presentation. 2. Normal growth; EFW 539 grams, which is at the 37% for this gestational age. 3. Multiple large uterine fibroids, suspect difficult delivery due to location and size of the fibroids. 4. Hematoma present concerning for abruption. 5. Cleft lip. 6. Small pericaridal effusion. 7. Dolicocephalic head shape, could be due to breech presentation or compression from the fibroids. 8. Skin line difficult to visualize at the back of the head. 9. 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 10. Oligohydramnios. Recommendations See inpatient chart. Ultrasound is not diagnostic of chromosomal aneuploidy and does not detect all subtle defects. Normal ultrasound findings do not guarantee normal outcomes. Ana Laura Nina DO, FACOG Electronically Signed Final Report 08/11/2020 03:02 pm --- Final --- Dictated: 08/11/2020 9:21 am Dictating Physician: DO NINA KATHERINE BRIDGET Signed Date and Time: 08/11/2020 3:03 pm Signed by: DO NINA KATHERINE BRIDGET [facility], [place] Progress Noteon 07-27-2020 Blueprint Processor Authentication Interface Message Text Maternal Medicine Consult Date of Service: 07/27/2020 Referring Provider: Kaushik Stovall Primary Care Provider: Samira [facility], MD Lori Reason for Consult: Dr. Kaushik Stovall requests that Cynthia be evaluated due to multiple uterine fibroids Cynthia is a 39 y.o. 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 No pertinent surgical history. No Known Allergies Social History Socioeconomic History Marital status: Unknown Spouse name: None Number of children: None Years of education: None Highest education level: None Occupational History None Social Needs Financial resource strain: None Food insecurity Worry: None Inability: None Transportation needs Medical: None Non-medical: None Tobacco Use Smoking status: Never Smoker Smokeless tobacco: Never Used Substance and Sexual Activity Alcohol use: Never Frequency: Never Drug use: Never Sexual activity: None Lifestyle Physical activity Days per week: None Minutes per session: None Stress: None Relationships Social connections Talks on phone: None Gets together: None Attends presybeterian service: None Active member of club or organization: None Attends meetings of clubs or organizations: None Relationship status: None Intimate partner violence Fear of current or ex partner: None Emotionally abused: None Physically abused: None Forced sexual activity: None Other Topics Concern None Social History Narrative None Infections Live with someone with or exposed to TB No History of STI's None Rash or viral illness since last menstruation No 2nd STI GBS 3rd STI Hx of Chicken Pox Yes Other infections Partner has hx of genital herpes Genetics Age is > than 35y as of estimated date Yes Thalassemia No Neural Tube Defect No Congenital Heart Defect No Down Syndrome No Dario-Sachs No Connie Disease No Sickle Cell Disease or Trait No Hemophilia, Thrombophilia No Muscular Dystrophy No Cystic Fibrosis No Kendall's Chorea No Intellectual Disability/Autism Yes Pt's twin with autism; FOB's cousin with developmental delays Metabolic Disorder No Recurrent Loss, or a Stillbirth No Inherited Genetic or Chromosomal Disorder No Illicit; Rec.drugs; Alcohol since last menses No Family History Problem Relation Age of Onset Diabetes Mellitus II Mother Heart Disease Father Diabetes Mellitus II Father Heart Disease Paternal Grandmother Outpatient Encounter Medications as of 07/27/2020 Medication Sig Dispense Refill Vit w/Xq-Mggckalbb-LK (PNV PO) Take by mouth [place]-3 Fatty Acids (FISH OIL) 1000 MG CAPS capsule Take by mouth daily NUTRISOURCE FIBER (NUTRISOURCE) PACK packet Take by mouth Stir each packet into at least 4 ounces of any beverage. ALOE VERA JUICE LIQD Take by mouth No facility-administered encounter medications on file as of 07/27/2020. Review of Systems negative Physical Exam Vitals: 07/27/20 0924 BP: 128/72 Very pleasant couple Laboratory Test Results: No results found for any previous visit. Ultrasound Results: - Please see Ultrasound test for full details. Assessment/Plan: Cynthia Molina is a 39 y.o. at 21w1d with: Active Non-Hospital Problems Diagnosis Date Noted Uterine fibroid in 07/31/2020 Seen for MFM consultation on 07/27/20 Multiple large intramural and one in the lower uterine segment that is obstructive to the canal, and difficult to even feel/visualize cervix 5 with largest of 13.7x10.2x10.2cm in the lower uterine segment recent vaginal bleeding, but no active on vaginal probe on 07/27/20 Comprehensive discussion today about fibroids in and the need for based upon examination today with risk of classical (most probably), hemorrhage and need for blood transfusion/hysterect jeancarlos at the time of delivery. I also spoke with Dr. Stovall today about the findings. Fibroids are observed in about 3-12% of women, and are quite a common finding during a . Uterine fibroids may affect the outcome of the , and this outcome may differ according to the characteristics of the myomas. In the case of , it has been linked to an increased risk for spontaneous , abnormal presentation, placenta previa, placental abruption, , section (up to 33% to 48.8% in one review) and peripartum hemorrhage. The impact on fertility and outcome depends upon the degree of anatomical alteration of the uterus and the distortion of the uterine cavity in particular. This patient has multiple fibroids and most are intramural in location with subserosal/intramural characteristics. Subserosal and intramural fibroids are not typically a significant cause of a poor outcome, but submucosal fibroids may impair fertility and impact outcome in a negative fashion. is more likely to occur in those with multiple fibroids as opposed to a single fibroid. There is also a higher rate with those fibroids in the lower portion of the uterus as compared to the body of the uterus. Increase in the size of fibroid is found to be associated with increased risk for hemorrhage. There are not interventions to be offered at this time given the findings, and continued serial growth and watching for signs and symptoms of would be warranted. We also talked about avoidance of intercourse and heavy lifting as this has precipitated her vaginal bleeding in the past. We also talked about degenerating fibroid, vaginal bleeding and increased risk for labor and loss with periviable PROM. She and Levar had a chance toask questions and they desired to see a picture on the computer today of what fibroids actually look like in the uterus. Avoidance of anemia during the is also important and checking a CBC each trimester and iron supplementation is also recommended if her hemoglobin is less than or equal to 10.5. Removal of the fibroids is not advocated during a delivery but seeing a applications programmer analyst oncologist at some point after delivery to discuss myomectomy would be an option as well to help preservation of future fertility. Club foot, , affecting care of mother, antepartum 07/31/2020 Visualized on 07/27/20 scan R>L no other abnormalities, normal biometry. Consult today for bilateral clubfeet Clubfeet occurs in 1 in 1000 pregnancies. Most cases are isolated and idiopathic, but there are more than 250 non-chromosomal syndromes that include clubfeet. Chromosomal abnormalities associated with clubfoot include trisomy 18, and deletions of 18q, 4p, 9q, and 13q. Other etiologies include neuromuscular disorders. As long as there are no other concerns related to chromosomal issues this disorder should not change the course of her and delivery should be per usual obstetric indications. The will need a detailed physical exam at and consultation with a pediatric orthopedic surgeon. The recurrence risk in subsequent children if isolated with no genetic syndrome, is approximately 2%. They report no history of familial clubfeet I reviewed with the couple today the possible diagnostic versus screening modalities that are available for diagnosis, and the risks of amniocentesis were reviewed including premature rupture of membranes, labor, loss of up to 1 in 500. The couple declines. They also decline any further screening and it would not change their mind about continuation. I did discuss that even with a normal karyotype, there is still a possibility of non-chromosomal syndromes. After all risks versus benefits reviewed today, they wish to decline amniocentesis. We also discussed pediatric orthopedic referral and they accept and this will be arranged with their future [facility] consultation Hearing loss in left ear Follow up 1. RTC in 3 weeks for growth/FTC for bilateral clubfeet. They will meet with orthopedics at that visit as well as genetics. They declined all testing. Will continue to recommend serial growth given large fibroids, plan for delivery will most probably be primary with hopes for 37-39 weeks, but high risk for prematurity and degenerating fibroid given recent vaginal bleeding. Continue to follow closely. At this time I spoke with Dr. Stovall and he plans to do her delivery unless there are concerns that arise with the and then if needed he would give consideration to KRISTEL at that time. I spoke with him at the time of her appointment/consultat ion The total patient time of the visit was 30 minutes, of which greater than 50% of the time was spent counseling and coordinating care. Normal [facility] Hep C Ab IA w/Confon 020 Hepatitis C Ab IA NEGAT Normal Negative [facility] Reference Lab Comment on above: Performed By: #### P OMER3 #### [facility] [address] [phone] #### [id number] #### [facility] Routine Lab [address] [phone] [address] 05-12-2020 Rubella IgG Ab 2.41 Index Value Normal [facility] Comment on above: Performed By: #### P OMER3 #### [facility] Immunology [address] [phone] #### AHCV1B #### [facility] Routine Lab [address] [place], [place] [address] Rubella IgG Ab, Qual Positive Abnormal Negative [facility] Comment on above: Performed By: #### P OMER3 #### [facility] [address] [phone] #### AHCV1B #### [facility] Routine Lab [address] [address] [place] 3 [facility] O NLYon 05-11-2020 Hepatitis B Surf. Ag NEGAT Normal Negative [facility] Comment on above: Performed By: #### P OMER3 #### [facility] Immunology [address] [place] [address] #### AHCV1B #### [facility] Routine Lab [address] [address] Reagin Ab RPR Ql (S) NR Normal Non Reactive [facility] Comment on above: Performed By: #### P OMER3 #### [facility] Immunology [address] [place] [address] #### AHCV1B #### [facility] Routine Lab [address] [address] ABO, External Resulton 05-09 ABO, External Result B [place], [place] C. Trachomatis, External Res ulton 05-09-2020 C. Trachomatis, External Result Negative [place], [place] GBS, External Resulton 05-09 GBS, External Result pending [place] HIV, External Resulton 05-09 HIV, External Result Negative [place] Hepatitis B, External Result on 05-09-2020 Hep B, External Result nonreactive [place], [place] Hepatitis C Antibody, Spring Maker al Resulton 05-09-2020 Hepatitis C Antibody, External Result Negative [place] N. Gonorrhoeae, External Res ulton 05-09-2020 N. Gonorrhoeae, External Result Negative [place] Otheron 05-09-2020 Verified by cassandra escudero RN [place] RPR, External Labon 05-09-20 20 RPR, External Result nonreactive [facility] [employer] [place] Rh Factor, External Resulton 05-09-2020 Rh Factor, External Result Positive [place], [place] Rhogam, External Resultson 0 05-09-2020 Rhogam, External Result no [facility], [place] Rubella Titer, External Resu lton 05-09-2020 Rubella Titer, External Result Positive [facility] [place], [place] Vital Signs Date Time Vital Sign Value Performing Clinician Harjinder peguero 04-07-2024 08:05-0400 Body height 166.37 cm Codie Sandoval Novak PA-C Work Phone: [employer] 04-07-2024 08:05-0400 Body mass index (BMI) [Ratio] 21.14 kg/m2 Codie Sandoval Novak PA-C Work Phone: [employer]; [employer] 04-07-2024 08:05-0400 Body surface area Derived from formula 1.65 m2 Codie Sandoval Novak PA-C Work Phone: [employer]; [employer] 04-07-2024 08:05-0400 Body weight 58.51 kg Codie Sandoval Novak PA-C Work Phone: [employer]; [employer]. 04-07-2024 08:05-0400 Diastolic blood pressure 70 mm[Hg] Codie Sandoval Novak PA-C Work Phone: [employer]; [employer]. Comment on above: Patient Position: Sitting; Cuff Location : Left Arm; Cuff Size: Standard 04-07-2024 08:05-0400 Heart rate 69 /min Codie Jaime Novak PA-C Work Phone: [email or web address]; [employer]. Comment on above: Pattern: Regular 04-07-2024 08:05-0400 Systolic blood pressure 106 mm[Hg] Codie J Novak PA-C Work Phone: [employer]. Comment on above: Patient Position: Sitting; Cuff Location : Left Arm; Cuff Size: Standard 11-18-2022 08:31-0500 Body height 166.37 cm Nupur Wen LPN [facility] 11-18-2022 08:31-0500 Body mass index (BMI) [Ratio] 22.12 kg/m2 Nupur Ragland [facility]. 11-18-2022 08:31-0500 Body surface area Derived from formula 1.68 m2 Nupur Ellyn Bettye [facility]. 11-18-2022 08:31-0500 Body weight 61.24 kg Nupur Ragland [facility]e [facility]. 11-18-2022 08:31-0500 Diastolic blood pressure 84 mm[Hg] Nupur Ragland Bettye [facility]. Comment on above: Patient Position: Sitting; Cuff Location : Left Arm; Cuff Size: Standard 11-18-2022 08:31-0500 Heart rate 89 /min Nupur Ragland Betyte [facility] [place] [employer] [facility]. Comment on above: Pattern: Regular 11-18-2022 08:31-0500 Systolic blood pressure 121 mm[Hg] Nupur Ragland Bettye [facility]. Comment on above: Patient Position: Sitting; Cuff Location : Left Arm; Cuff Size: Standard 05-23-2021 16:33-0400 Body height 166.37 cm Kaushik Davdison MD Work Phone: [facility] [place] [employer] [facility]. 05-23-2021 16:33-0400 Body mass index (BMI) [Ratio] 23.76 kg/m2 Kaushik Davidson MD Work Phone: [facility].; [place] [employer] [facility]. 05-23-2021 16:33-0400 Body surface area Derived from formula 1.74 m2 Kaushik Davidson MD Work Phone: [facility].; [place] [facility]. 05-23-2021 16:33-0400 Body weight 65.77 kg Kaushik Davidson MD Work Phone: [employer]; [employer] 05-23-2021 16:33-0400 Diastolic blood pressure 74 mm[Hg] Kaushik Davidson MD Work Phone: [employer]. Comment on above: Patient Position: Sitting; Cuff Location : Left Arm; Cuff Size: Standard 05-23-2021 16:33-0400 Heart rate 76 /min Kaushik Davidson MD Work Phone: [employer]; [email or web address] Comment on above: Pattern: Regular 05-23-2021 16:33-0400 Systolic blood pressure 114 mm[Hg] Kaushik Davidson MD Work Phone: [employer]; [email or web address] Comment on above: Patient Position: Sitting; Cuff Location : Left Arm; Cuff Size: Standard 11-09-2020 05:14-0500 Body Temperature 98.6 [degF] Lovely Cesta [facility] Work Phone: 11-09-2020 05:14-0500 BP Diastolic 58 mm[Hg] Lovely Cesta [facility] Work Phone: 11-09-2020 05:14-0500 BP Systolic 91 mm[Hg] Lovely Cesta [facility] Work Phone: 11-09-2020 05:14-0500 Pulse (Heart Rate) 96 /min Lovely Cesta [facility] Work Phone: 11-09-2020 05:14-0500 Pulse Oximetry 95 % Lovely Cesta [facility] Work Phone: 11-09-2020 05:14-0500 Respiratory Rate 16 /min Lovely Cesta [facility] Work Phone: 11-08-2020 08:18-0500 BMI (Body Mass Index) 22.92 kg/m2 Lovely Cesta [facility] Work Phone: 11-08-2020 08:18-0500 Body weight 64.41 kg Lovely HERRERAA Work Phone: 11-08-2020 08:18-0500 Height 167.6 cm Lovely Nguyenta JAVIERA Work Phone: 11-01-2020 14:17-0500 BMI (Body Mass Index) 23.05 kg/m2 Lovely Nguyenta JAVIERA Work Phone: 11-01-2020 14:17-0500 Body weight 64.77 kg Lovely HERRERAA Work Phone: 11-01-2020 14:17-0500 Height 167.6 cm Lovely Nguyenta JAVIERA Work Phone: 11-01-2020 14:15-0500 Body Temperature 97.3 [degF] Lovely Nguyenta JAVIERA Work Phone: 11-01-2020 14:15-0500 BP Diastolic 78 mm[Hg] Lovely Nguyenta JAVIERA Work Phone: 11-01-2020 14:15-0500 BP Systolic 113 mm[Hg] Lovely HERRERAA Work Phone: 11-01-2020 14:15-0500 Pulse (Heart Rate) 77 /min Lovely HERRERAA Work Phone: 11-01-2020 14:15-0500 Pulse Oximetry 99 % Lovely HERRERAA Work Phone: 11-01-2020 14:15-0500 Respiratory Rate 18 /min Lovely HERRERAA Work Phone: 08-16-2020 08:59-0500 Body Temperature 97.59 [degF] [employer] 08-16-2020 08:59-0500 BP Diastolic 72 mm[Hg] Myrtle [email or web address] 08-16-2020 08:59-0500 BP Systolic 112 mm[Hg] [employer] 08-16-2020 08:59-0500 Pulse (Heart Rate) 84 /min [employer]rtle [employer] [place] 08-16-2020 08:59-0500 Pulse Oximetry 97 % [place], [place] 08-16-2020 08:59-0500 Respiratory Rate 20 /min [place] 08-11-2020 06:26-0500 BMI (Body Mass Index) 24.21 kg/m2 [place] 08-11-2020 06:26-0500 Body weight 68.04 kg [place] 08-11-2020 06:26-0500 Height 167.6 cm [place] 11-07-2016 14:39-0500 Body height 166.37 cm Kaushik Davidson MD Work Phone: [email or web address]; [employer]. 11-07-2016 14:39-0500 Body mass index (BMI) [Ratio] 22.45 kg/m2 Kaushik Davidson MD Work Phone: [email or web address]; [employer] 11-07-2016 14:39-0500 Body surface area Derived from formula 1.69 m2 Kaushik Davidson MD Work Phone: [email or web address]; [employer] 11-07-2016 14:39-0500 Body weight 62.14 kg Kaushik Davidson MD Work Phone: [employer] 11-07-2016 14:39-0500 Diastolic blood pressure 79 mm[Hg] Kaushik Davidson MD Work Phone: [employer]. Comment on above: Patient Position: Sitting; Cuff Location : Right Arm; Cuff Size: Standard 11-07-2016 14:39-0500 Heart rate 88 /min Kaushik Davidson MD Work Phone: [email or web address]; [email or web address] Comment on above: Pattern: Regular 11-07-2016 14:39-0500 Systolic blood pressure 128 mm[Hg] Kaushik Davidson MD Work Phone: [email or web address]; [employer]. Comment on above: Patient Position: Sitting; Cuff Location : Right Arm; Cuff Size: Standard 10-31-2016 15:04-0500 Body height 166.37 cm Kaushik Davidson MD Work Phone: [employer]. 10-31-2016 15:04-0500 Body mass index (BMI) [Ratio] 22.78 kg/m2 Kaushik Davidson MD Work Phone: [employer]. 10-31-2016 15:04-0500 Body surface area Derived from formula 1.7 m2 Kaushik Davidson MD Work Phone: [employer]; [employer]. 10-31-2016 15:04-0500 Body temperature 97.4 [degF] Kaushik Davidson MD Work Phone: [employer]; [employer]. Comment on above: Method: Tympanic 10-31-2016 15:04-0500 Body weight 63.05 kg Kaushik Davidson MD Work Phone: [employer]; [employer]. 10-31-2016 15:04-0500 Diastolic blood pressure 84 mm[Hg] Kaushik Davidson MD Work Phone: [email or web address]; [employer]. Comment on above: Patient Position: Sitting; Cuff Location : Right Arm; Cuff Size: Standard 10-31-2016 15:04-0500 Heart rate 102 /min Kaushik Davidson MD Work Phone: [email or web address]; [employer]. Comment on above: Pattern: Regular 10-31-2016 15:04-0500 Systolic blood pressure 125 mm[Hg] Kaushik Davidson MD Work Phone: [email or web address]; [employer]. Comment on above: Patient Position: Sitting; Cuff Location : Right Arm; Cuff Size: Standard Encounters Encounter Date Encounter Type Care Provider Facility Start: 08-02-2025 ambulatory Arlene Fleming NP Facil ity:[facility] Start: 04-07-2024 End: 04-07-2024 Office outpatient visit 15 minutes Codie Novak PA-C Work Phone: [email or web address] Start: 02-03-2023 End: 02-03-2023 Medication Kaushik Davidson MD Work Phone: [email or web address] Start: 12-31-2022 End: 12-31-2022 Medication Kaushik Davidson MD Work Phone: [email or web address] Start: 11-26-2022 End: 11-26-2022 ambulatory CODIE NOVAK Rajesh [facility] Start: 11-25-2022 End: 11-25-2022 Orders Kaushik Davidson MD Work Phone: [email or web address] Start: 11-21-2022 End: 11-21-2022 Orders Kaushik Davidson MD Work Phone: [email or web address] Start: 11-18-2022 End: 11-18-2022 Patient encounter procedure Kaushik Davidson MD Work Phone: [email or web address] Start: 05-29-2022 End: 05-29-2022 ambulatory [facility] Work Phone: Start: 05-29-2022 End: 05-29-2022 Patient encounter procedure [facility]-Outpatient Breast Imaging Start: 06-01-2021 End: 06-01-2021 Orders Kaushik Davidson MD Work Phone: [email or web address] Start: 05-23-2021 End: 05-23-2021 Office outpatient visit 10 minutes Kaushik Davidson MD Work Phone: [email or web address] Start: 05-14-2021 End: 05-14-2021 Historical Summary Kaushik Davidson MD Work Phone: [email or web address] Start: 11-08-2020 End: 11-09-2020 Subsequent hospital visit by physician Lovely Freeman Work Phone: [facility] H5 MED SURG Comment on above: Post-op pain (Primar y Dx) Start: 11-01-2020 End: 11-01-2020 Subsequent hospital visit by physician Lovely Freeman Work Phone: [facility] Pre-Admit Testing Comment on above: Arrived Start: 10-05-2020 End: 10-05-2020 Subsequent hospital visit by physician Lovely Freeman Work Phone: [facility] Comment on above: Arrived Start: 08-11-2020 End: 08-16-2020 Evaluation and management of inpatient Myrtle Mendoza Work Phone: [facility] H4 Comment on above: S/P section (Primary Dx) Start: 08-02-2017 End: 08-02-2017 Medication Kaushik Davidson MD Work Phone: [email or web address] Start: 07-10-2017 End: 07-10-2017 Medication Kaushik Davidson MD Work Phone: [email or web address] Start: 11-07-2016 End: 11-08-2016 Patient encounter procedure Kaushik Davidson MD Work Phone: [email or web address] Start: 10-31-2016 End: 10-31-2016 Patient encounter procedure Kaushik Davidson MD Work Phone: [email or web address] Procedures Date Procedure Procedure Detail Performing Clinician Start: 11-21-2022 End: 12-09-2022 Xtrnl pt activ ecg transmis w/r&i 30 days Codie Novak PA-C Work Phone: Comment on above: 48 hours Start: 11-18-2022 End: 11-28-2022 TTE w or wo fol wcon,Doppler Codie Novak PA-C Work Phone: Start: 11-18-2022 End: 11-25-2022 Ecg routine ecg w/least 12 lds i&r only Codie Novak PA-C Work Phone: Start: 05-29-2022 Screening mammography Start: 11-08-2020 OPERATIVE REPORT 3m Sca nning Start: 11-08-2020 Blood typing serologic abo Elizabeth Ragland Geesammi Work Phone: Start: 11-08-2020 Urine test visual color cmprsn isidro Sheppard Work Phone: Start: 11-08-2020 JESSICA STUDIO 3 Lovely A Cesta Work Phone: Start: 11-01-2020 Blood count complete automated Lovely A Cesta Work Phone: Start: 09-22-2020 End: 09-22-2020 Partial hysterectomy Codie Jacobs Work Phone: Comment on above: cervix and uterus re moved due to fibroids Start: 08-13-2020 Blood count complete automated Narayan Stoll Work Phone: Start: 08-13-2020 Comprehensive metabo lic panel Narayan Stoll Work Phone: Start: 08-13-2020 PROTIME/INR & PTT Narayan Stoll Work Phone: Start: 08-12-2020 Blood count complete automated Narayan Stoll Work Phone: Start: 08-12-2020 Comprehensive metabo lic panel Narayan Stoll Work Phone: Start: 08-12-2020 Fibrinogen activity Gallo in Adria Stoll Work Phone: Start: 08-12-2020 PROTIME/INR & PTT Narayan Stoll Work Phone: Start: 08-12-2020 Blood count hemoglobin Narayan Stoll Work Phone: Start: 08-12-2020 Fibrinogen activity Gallo in Adria Stoll Work Phone: Start: 08-12-2020 PROTIME/INR & PTT Narayan Stoll Work Phone: Start: 08-12-2020 Transfuse erythrocyt es [Volume] Narayan Stoll Work Phone: Start: 08-12-2020 Transfuse erythrocyt es [Volume] Narayan Stoll Work Phone: Start: 08-12-2020 Calcium ionized Narayan Stoll Work Phone: Start: 08-12-2020 ADD ON LAB TEST Narayan Stoll Work Phone: Start: 08-12-2020 Assay of magnesium Whit sherry Woodward Work Phone: Start: 08-12-2020 Blood count complete automated Yasmin Woodward Work Phone: Start: 08-12-2020 Comprehensive metabo lic panel Yasmin [place]ward Work Phone: Start: 08-12-2020 Fibrinogen activity Whi ervin Woodward Work Phone: Start: 08-12-2020 PROTIME/INR & PTT Juliana Woodward Work Phone: Start: 08-11-2020 Us preg uterus w/det ail miles 1st gestation Myrtle Mendoza Work Phone: Start: 08-11-2020 Susceptiblty stdy antimicrbial micro/agar dilutj Rafaela Ball Work Phone: Start: 08-11-2020 Iadna multiple organ isms direct probe tq Rafaela Ball Work Phone: Start: 08-11-2020 Culture bacterial quanttative colony count urine Rafaela Ball Work Phone: Start: 08-11-2020 Blood count complete automated Rafaela Ball Work Phone: Start: 08-11-2020 Blood typing serologic abo Rafaela Ball Work Phone: Start: 08-11-2020 Comprehensive metabo lic panel Rafaela Ball Work Phone: Start: 08-11-2020 Fibrinogen activity Laurel Ball Work Phone: Start: 08-11-2020 PREPARE FRESH FROZEN PLASMA Narayan Stoll Work Phone: Start: 08-11-2020 PREPARE PLATELETS Radha Donnelly Work Phone: Start: 08-11-2020 PROTIME/INR & PTT Akira Ball Work Phone: Start: 05-09-2020 ABO, EXTERNAL RESULT Hi storical Provider Start: 05-09-2020 C. TRACHOMATIS, EXTE RNAL RESULT Historical Provider Start: 05-09-2020 GBS, EXTERNAL RESULT Hi storical Provider Start: 05-09-2020 HEPATITIS B, EXTERNA L RESULT Historical Provider Start: 05-09-2020 HEPATITIS C ANTIBODY , EXTERNAL RESULT Historical Provider Start: 05-09-2020 HIV, EXTERNAL RESULT Hi storical Provider Start: 05-09-2020 N. GONORRHOEAE, EXTE RNAL RESULT Historical Provider Start: 05-09-2020 RH FACTOR, EXTERNAL RESULT Historical Provider Start: 05-09-2020 RHOGAM, EXTERNAL RESULT Historical Provider Start: 05-09-2020 RPR, EXTERNAL RESULT Hi storical Provider Start: 05-09-2020 RUBELLA TITER, EXTER NAL RESULT Historical Provider Start: 10-31-2016 End: 11-05-2016 Us pelvic nonobstetric real-time image complete Jewel Armstrong MD Work Phone: Ear Surgery Kaushik holden MD Work Phone: Comment on above: Left. Ear Surgery Codie portillo PA-C Work Phone: Comment on above: Left. Plan of Treatment Date Care Activity Detail Author Start: 11-23-2020 End: 11-23-2020 Office Visit 11/23/2020 Office Visit Obstetrics and Gynecology Lovely Freeman MD [address] [place] [address] [facility] Pelvic Health Start: 11-08-2020 End: 11-08-2020 Appointment 11/08/2020 Appointment General Surgery Lovely Freeman MD [address] [place] [address] William Kay MD [address] [place] [address], [address] [place], [place] [id number] [facility] General Surgery Start: 10-12-2020 End: 10-12-2020 Office Visit 10/12/2020 Office Visit Obstetrics and Gynecology Lovely Freeman MD [address] [place] [address] [address] [place] [address] [phone] [facility] Pelvic [facility] Start: 05-23-2020 Influenza vaccination Flu vaccine (# 1) [place], [place] Start: 2002 Screening for malign ant neoplasm of cervix Cervical cancer screen [place] Start: 2000 DTaP/Tdap/Td vaccine (1 - Tdap) DTaP/Tdap/Td vaccine (1 - Tdap) [place] Start: 1996 HIV screening HIV screen [place], [place] Start: 11-28-1987 Pneumococcal 0-64 ye ars Vaccine (1 of 2 - PCV13) Pneumococcal 0-64 years Vaccine (1 of 2 - PCV13) [place] Start: 1982 Varicella vaccine (1 of 2 - 2-dose childhood series) Varicella vaccine (1 of 2 - 2-dose childhood series) [place] Start: 1981 Hepatitis C screening Hepatitis C sc reen [place] Hemoglobin and Hematocrit, Blood, Post Transfusion Hemoglobin and Hematocrit, Blood, Post Transfusion Lab Routine Post Transfusion Post Transfusion Post Transfustion for 1 Occurrences starting 08/12/2020 [place] Comment on above: Post Transfusion Pos t Transfusion Post Transfustion for 1 Occurrences starting 08/12/2020 Oxygen therapy [[facility]ini [facility] Data Set] [place] Comment on above: Daily until disconti nued starting 08/13/2020 Daily until disconti nued starting 11/08/2020 Spirometry panel Incentive tamra metry Respiratory Care Routine Every 2hr while awake until discontinued starting 08/13/2020 [place] Comment on above: Every 2hr while awak e until discontinued starting 08/13/2020 End: 11-08-2020 Surgical Pathology Surgical Pathology Lab Routine Once for 1 Occurrences starting 11/08/2020 until 11/08/2020 [facility] Work Phone: Comment on above: Once for 1 Occurrenc es starting 11/08/2020 until 11/08/2020 Surgical Pathology Surgical Path ology Lab Routine 11/08/2020 1:54 PM GENARO WAGNER Work Phone: Transfuse erythrocyt es [Vol] [place] Transfuse fresh froz en plasma Transfuse fresh frozen plasma Nursing Transfusion Routine 08/12/2020 7:50 PM GENARO [place] End: 10-05-2020 US NON OB TRANSVAGINAL US NON OB TRANSVAGINAL Imaging Routine Once for 1 Occurrences starting 10/05/2020 until 10/05/2020 [place] Comment on above: Once for 1 Occurrenc es starting 10/05/2020 until 10/05/2020 US NON OB TRANSVAGINAL US NON OB TRANSVAGINAL Imaging Routine 10/05/2020 1:23 PM [place] End: 10-05-2020 US PELVIS COMPLETE US PELVIS COMPLETE Imaging Routine Once for 1 Occurrences starting 10/05/2020 until 10/05/2020 [place] Comment on above: Once for 1 Occurrenc es starting 10/05/2020 until 10/05/2020 US PELVIS COMPLETE US PELVIS COM PLETE Imaging Routine 10/05/2020 1:23 PM [place] Immunizations Immunization Date Immunization Notes Care Provider Ninfa brantley NEGATED: Highlighted row has not occurred!08-16-2020 measles, mumps and rubella virus vaccine [place] NEGATED: Highlighted row has not occurred!08-15-2020 tetanus toxoid, reduced diphtheria toxoid, and acellular pertussis vaccine, adsorbed [place] NEGATED: Highlighted row has not occurred!08-13-2020 tetanus toxoid, reduced diphtheria toxoid, and acellular pertussis vaccine, adsorbed [place] Payers Date Payer Category Payer Self-pay [id number] 2025 Unknown [id number] 1980 Unknown [id number] 1980 Unknown [id number] Unknown 77 Unknown [id number] Social History Date Type Detail Facility Start: 08-16-2020 End: 09-28-2020 Tobacco smoking status NHIS Never smoker [place] Start: 08-16-2020 End: 09-28-2020 Tobacco use and exposure Never used [place] Start: 08-16-2020 End: 09-28-2020 Alcohol intake Lifetime non-drinker (finding) [place] Start: 08-11-2020 History SDOH Alcohol Frequency 1 [place] Sex Assigned At Not on file [place] Exposure to SARS-CoV -2 (event) Not sure [facility] Work Phone: Start: 1980 Sex Assigned At Female [facility] Work Phone: Alcohol Use: Alcohol Use: ; None. [facility], [employer], [employer]. Tobacco Use: Tobacco Use: ; N ever smoker. [employer] [facility], [employer], [facility]. Evaluation note Note Date & Type Note Facility Evaluation note No assessment information availa [facility] Work Phone: Summary Purpose Family History No Family History Records Found Aortic Valve Disorder Status:Active Comments:F ather. Sudden Status:Active Comments:Brother . Aortic Valve Disorder Status:Active Comments:F ather. Sudden Status:Active Comments:Brother . Advance Directives No Advanced Directives Records FoundLatest Code Status on File Code Status Date Activated Date Inactivated Comments Full Code 08/13/2020 12:48 AM Full Code 08/11/2020 6:43 AM 08/13/2020 12:48 AM Latest Code Status on File Code Status Date Activated Date Inactivated Comments Full Code 08/13/2020 12:48 AM 08/16/2020 2:56 PM Latest Code Status on File Code Status Date Activated Date Inactivated Comments Full Code 11/08/2020 6:38 PM Full Code 11/08/2020 8:17 AM 11/08/2020 5:45 PM Full Code 08/13/2020 12:48 AM 08/16/2020 2:56 PM Hospital Course Note Department of Obstetrics and Gynecology Delivery Discharge Summary Admission on 08/11/2020 6:05 AM Reason for admission: 23 2/7 weeks with vaginal bleeding and pelvic pain in the face of known intrauterine fibroids Intrapartum Course: vaginal bleeding requiring 2 units of PRBC and subsequent Cat III tracing necessitating delivery Surgical Operations & Procedures: Date of delivery: 08/13/20 Delivery Type: Primary Classical uterine incision via posterior hysterotomy and vertical skin incision Anesthesia: Spinal anesthesia Laceration(s): n/a Delivery Complications: acute bloos loss anemia requiring additional 2 units PRBC and FFP X one unit EBL: 1500 cc Pertinent Findings & Procedures: Information for the patient's : Ani Molina [[id number]] female Weight: 550gm Apgars: Information for the patient's : Ani Molina [[id number]] Apgars of 3/6/7 transferred to [facility] Course: Infant:female at [facility] Blood (more content not included)... Note Attestation signed by Lovely Freeman MD at 11/09/2020 9:32 AM I reviewed and agree with the care provided by the resident/CNM during the visit including the patient's medical history, the resident's findings in the physical exam, patient's diagnosis and treatment plan. Body Masker Discharge Summary Patient Name: Cynthia Molina Patient : 1980 Primary Care Physician: Jewel Armstrong MD Admit Date: 11/08/2020 Attending Provider: Lovely Freeman MD Principal Diagnosis: Fibroid uterus Other Diagnosis: S/P laparoscopic hysterectomy [Z90.710] Patient Active Problem List Diagnosis ? S/P section ? Intramural, submucous, and subserous leiomyoma of uterus ? hemorrhage ? S/P laparoscopic hysterectomy Surgical Operations & Procedures: Total laparoscopic hysterecto (more content not included)... Note Operative Note Department of Obstetrics and Gynecology Patient: Cynthia Molina : 1980 Date of Procedure: 11/08/20 Pre-operative Diagnosis: 39 y.o. female 1. Fibroid uterus Post-operative Diagnosis: Same Procedure: Total laparoscopic hysterectomy, partial bilateral salpingectomy and cystoscopy, lysis of adhesions Surgeon: Dr. Freeman Sales Service Promoter(s): Dr. Kay who was needed for instrument exchanges, retraction and exposure. Dr. Georges & Dr. Woodward for teaching purposes only Anesthesia: General, TAP block Findings: Adhesions of the omentum to the Enlarged fibroid uterus (1088g). Large 10cm left pedunculated fibroid. Right fundal 5cm subserous fibroid. Right very large posterior fibroid in the rectovaginal septum and into the right pararectal space distorting normal anatomy, normal tubes and ovaries. Fibroid with significant degeneration on extraction. Vigorous jets of urine from both ureteral orifices. Total IV fluids/Blood products: 1250 ml crystalloid Antibio (more content not included)... Discharge Instructions * Instructions* Corrine Arias DO - 08/15/2020 After Your Delivery (the Period): Your Care Instructions Congratulations on the of your baby. Like , the period can be a time of excitement, asif, and exhaustion. You may look at your wondrous little baby and feel happy. You may also be overwhelmed by your new sleep hours and new responsibilities. In these first weeks after delivery, try to take good care of yourself. It may take 4 to 6 weeks to feel like yourself again, and possibly longer if you had a . You will likely feel very tired for several weeks. Your dayswill be full of ups and downs, but lots of asif as well. FOLLOW-UP: Your follow-up care is a morton part of your treatment and safety. Follow-up with your OB doctor in 4-6 weeks or as specified by your physician. Be sure to make and go to all appointments, and call yourdoctor if you are having problems. It's also a good idea to know your test results and keep a list of the medicines you take. BLEEDING ? Vaginal bleeding will decrease in amount over the next few weeks but be present for as long as 8 weeks after delivery. Bleeding may hot die picker and then decrease again around 7-10 days . ? Use pads instead of tampons for the bloody flow that may last as long as 2 weeks. ? You will notice that as your activity increases, your flow may increase. ? Call your doctor if you are saturating one maxi pad in an hour & passing large clots for 3 hours or more. ACTIVITY ? NO SEXUAL activity for 6 weeks or until advised by your doctor. ? Nothing in the vagina for 6 weeks: e.g.) intercourse, tampons, or douching. ? Showering is okay; NO tub baths, swimming, or hot tubs for 6 weeks. ? Gradually increase your activity. Resume exercise regimen only after advice by your doctor. ? Avoid lifting anything heavier than your baby or a gallon of milk for six weeks. ? Avoid driving 1 week for vaginal delivery and 2 weeks for section, or longer if you are on prescription pain medicine unless otherwise instructed by your doctor. ? Rise slowly from a lying to sitting and then a standing position. ? Climb stairs carefully. Use caution when carrying your baby up and down the stairs. ? You may feel tired or have a lack of energy. Nap when baby naps to catch up on sleep. ? You may continue your vitamin to replenish nutrients post delivery. EMOTIONS You may feel gonzales, sad, teary, & overwhelmed for the first 2 weeks ; however, feelings of post depression may occur any time within the first year after delivery. Contact your OB provider if you feel you may be showing signs of depression, or have thoughts of harming yourself or your infant. If infant will not stop crying, contact another adult for help or place in their crib on their back and take a break. NEVER shake your infant. WOUND CARE For Vaginal Delivery: ? Shower daily, and cleanse your perineum (bottom) with mild soap from front to Back. Use the plastic squirt bottle until bleeding stops each time you use the restroom instead of wiping with toilet paper. ? Ease soreness of hemorrhoids and the area between your vagina and rectum with ice compresses or witch arabella pads. ? If used, stitches will dissolve in 4-6 weeks on their own. You may use a sitz bath or soak in a clean tub with drain open and water running for comfort. ? Kegel exercises will help restore bladder control. To do these tighten your muscles as if you were stopping your urine flow. Hold for a few seconds and then relax. Do these throughout the day. For Section Delivery: ? Keep your incision clean and dry. If you had steri-strips you may remove these once they start peeling off. If you have ambar they need to be removed 3-10 days after delivery. If you have steri-strips, remove after 10-14 days. ? Do not wear clothing that irritates the incision line. If your incision in in a crease that is not dry, use a hair-dryer to dry the area 3 times a day. ? If you develop fever, shaking chills, redness, swelling, drainage or discharge from your wound, or if your wound looks like it's coming apart call your doctor immediately. For Tubal Ligation: ? Remove dressing 3 days after being discharged from the hospital. ? If you develop fever, shaking chills, redness, swelling, drainage or discharge from your wound, or if your wound looks like it's coming apart call your doctor immediately. BREAST CARE If you develop a warm, red, tender area on your breast or develop a fever contact your doctor. For moms: ? If you become engorged, feeding may be more difficult or painful for 1-2 days. ? You may find it helpful to hand express some milk so that the can latch on more easily or ease soreness with wet, warm washcloths. ? While , continue to take your vitamins as directed by your doctor. For non- moms: ? You may apply ice packs to your breasts over you bra for twenty minutes at a time for comfort. ? Cabbage leaves may be applied to breasts, replace when wilted. ? Avoid stimulation to your breasts, when showering allow the water to strike your back not your breasts. ? Do not express milk or your body will make more. ? Wear a good fitting bra until your milk dries, such as a sports bra. DIET & CONSTIPATION ? Eat a well balanced diet focusing on foods high in fiber and protein such as: whole grain cerealsand breads, fruits and vegetables and legumes (eg, beans, lentils) ? Drink 8-10 glasses of fluids daily, especially water. ? To avoid constipation you may take a mild thew-mdd-fpiweqm stool softener (such as colace) as recommended by your doctor. SWELLING ? Try to keep your legs elevated when you are sitting or lying down. ? Stay hydrated and take walks. BABY ? Babies sleep safest on their back in a crib without bumpers, blankets or stuffed animals. ? DO NOT sleep with your baby in your bed or the couch. ? DO NOT expose baby to smoke, this can increase risks of asthma and sudden syndrome. If you or someone around baby smokes have them change their shirt and wash any facial hair before holding baby. Do not smoke inside the house and change the ventilation filters in the house before bringing baby home. WHEN TO CALL THE DOCTOR Signs of infection, including fever (101oF) and chills. Increased bleeding: soaking more than one sanitary pad an hour. Wounds that become red, swollen or drain pus. Vaginal discharge that smells foul. Headaches that lasts several hours and will not go away even with headache medications. Visual changes that last several hours and will not go away. Significant pain immediately below your rib cage. New pain, swelling, or tenderness in your legs Pain that you can't control with the medications you've been given. Pain, burning, urgency or frequency of urination, or persistent bleeding in the urine. Cough, shortness of breath, or chest pain. Depression, suicidal thoughts, or feelings of harming your baby. Breasts that are hot, red and accompanied by fever. Any cracking or bleeding from the nipple or areola (the dark-colored area of the breast). In case of an emergency, call 911 immediately. If you are Covid-19 positive or a Person Under Investigation (PUI) Tymngg-ai-evkgq transmission of COVID-19 during is unlikely, but after a baby is susceptible to ntjcdb-ri-wsuney spread. ? After your baby is born, your health care provider may recommend you not hold your baby and/or that you stay in a separate room from your baby until you get better. ? If you and your baby are not , wear a facemask at all times and wash your hands thoroughly before touching, holding or feeding your baby. Baby Care & Feeding ? has many benefits for you and your baby and is the best food for your baby. From what experts know so far, COVID-19 has not been found in breastmilk. ? Having a healthy adult who can assist with baby care until you get better is important, you may want to have a healthy adult feed your baby your expressed breast milk or formula if you chose to notbreastfeed. ? You may use a breast pump to express your breast milk. Wear a face mask, wash your breasts, then wash your hands thoroughly before touching the breast pump and bottle parts. Clean all pump parts after each use. ? If you choose to breastfeed from your breast, wear a face mask, wash your breasts, wash your hands thoroughly before feeding your baby. These could be signs that your COVID-19 symptoms are worsening and you may need emergency care: You are severely dizzy or lightheaded. You are confused or can't think clearly. Your face and lips have a blue color. You are unable to respond to others or are very hard to wake up. Prevention steps for People with confirmed or suspected COVID-19 (including persons under investigation) who do not need to be hospitalized AND People with confirmed COVID-19 who were hospitalized and determined to be medically stable to go home Your healthcare provider and public health staff will evaluate whe ther you can be cared for at home. If it is determined that you do not need to be hospitalized and can be isolated at home, you willbe monitored by staff from your local or state health department. You should follow the prevention steps below until a healthcare provider or local or state health department says you can return to your normal activities. Stay home except to get medical care People who are mildly ill with COVID-19 are able to isolate at home during their illness. You should restrict activities outside your home, except for getting medical care. Do not go to work, school,or public areas. Avoid using public transportation, ride-sharing, or taxis. Separate yourself from other people and animals in your home ? People: As much as possible, you should stay in a specific room and away from other people in your home. Also, you should use a separate bathroom, if available. ? Animals: You should restrict contact with pets and other animals while you are sick with COVID-19, just like you would around other people. Although there have not been reports of pets or other animals becoming sick with COVID-19, it is still recommended that people sick with COVID-19 limit contact with animals until more information is known about the virus. When possible, have another member of your household care for your animals while you are sick. If you are sick with COVID-19, avoid contact with your pet, including petting, snuggling, being kissed or licked, and sharing food. If you must care for your pet or be around animals while you are sick, wash your hands before and after you interact with pets and wear a facemask. Call ahead before visiting your doctor If you have a medical appointment, call the healthcare provider and tell them that you have or may have COVID-19. This will help the healthcare provider's office take steps to keep other people from getting infected or exposed. Wear a facemask You should wear a facemask when you are around other people (e.g., sharing a room or vehicle) or pets and before you enter a healthcare provider's office. If you are not able to wear a facemask (for example, because it causes trouble breathing), then people who live with you should not stay in the same room with you, or they should wear a facemask if they enter your room. Cover your coughs and sneezes Cover your mouth and nose with a tissue when you cough or sneeze. Throw used tissues in a lined trash can. Immediately wash your hands with soap and water for at least 20 seconds or, if soap and water are not available, clean your hands with an alcohol-based hand cyber policy and strategy planner that contains at least 60% alcohol. Clean your hands often ? Wash your hands often with soap and water for at least 20 seconds, especially after blowing your nose, coughing, or sneezing; going to the bathroom; and before eating or preparing food. If soap andwater are not readily available, use an alcohol-based hand cyber policy and strategy planner with at least 60% alcohol, covering all surfaces of your hands and rubbing them together until they feel dry. ? Soap and water are the best option if hands are visibly dirty. Avoid touching your eyes, nose, and mouth with unwashed hands. Avoid sharing personal household items You should not share dishes, drinking glasses, cups, eating utensils, towels, or bedding with otherpeople or pets in your home. After using these items, they should be washed thoroughly with soap and water. Clean all high-touch surfaces everyday High touch surfaces include counters, tabletops, doorknobs, bathroom fixtures, toilets, phones, keyboards, tablets, and bedside tables. Also, clean any surfaces that may have blood, stool, or body fluids on them. Use a household cleaning spray or wipe, according to the label instructions. Labels contain instructions for safe and effective use of the cleaning product including precautions you should take when applying the product, such as wearing gloves and making sure you have good ventilation during use of the product. Monitor your symptoms ? Seek prompt medical attention if your illness is worsening (e.g., difficulty breathing). Before seeking care, call your healthcare provider and tell them that you have, or are being evaluated for, COVID-19. Put on a facemask before you enter the facility. These steps will help the healthcare provider's office to keep other people in the office or waiting room from getting infected or exposed. Ask your healthcare provider to call the local or state health department. Persons who are placed under active monitoring or facilitated self- monitoring should follow instructions provided by their local health department or occupational health professionals, as appropriate. When working with your [facility] health department check their available hours. ? If you have a medical emergency and need to call 911, notify the dispatch personnel that you have, or are being evaluated for COVID-19. If possible, put on a facemask before emergency medical services arrive. Discontinuing home isolation Patients with confirmed COVID-19 should remain under home isolation precautions until the risk of secondary transmission to others is thought to be low. The decision to discontinue home isolation precautions should be made on a vwrw-he-udtw basis, in consultation with healthcare providers and stateand local health departments. Information on COVID-19 for ALL patients Call your provider before your next appointment if you develop any of the following symptoms: fever, cough, fatigue, anorexia, shortness of breath, sputum production, and muscle pains. Headache, confusion, rhinorrhea, sore throat, hemoptysis, vomiting, and diarrhea have been reported but are less common. Some persons with COVID-19 have experienced gastrointestinal symptoms such as diarrhea and nausea prior to developing fever and lower respiratory tract signs and symptoms. Ways to [place] with Anxiety & Stress ? It is normal to feel anxious or worried about COVID-19. You might feel sad about canceling celebrations and staying away from family and friends. ? Keep in mind that most people do not get severely ill from COVID-19. It is important to have a plan in case you get sick to prevent spreading the disease to others including an Advanced Care Plan (communicating and documenting your desired health care plan with family and healthcare team). ? You can take care of yourself by: o Taking a break from watching the news o Take deep breaths, stretch or meditate o Getting exercise, eating healthy foods, and drinking plenty of water o Finding activities you can enjoy inside your home o Staying in touch with your family and friends. Tell your partner, family, and friends how you arefeeling. Advance Care Planning People with COVID-19 may have no symptoms, mild symptoms, such as fever, cough, and shortness of breath or they may have more severe illness, developing severe and fatal pneumonia. As a result, Advance Care Planning with attention to naming a health care decision maker (someone you trust to make healthcare decisions for you if you could not speak for yourself) and sharing other health care preferences is important BEFORE a possible health crisis. Please contact your Primary Care Provider to discuss Advance Care Planning. LEARNING ABOUT THE CORONAVIRUS (COVID-19): Coronavirus (COVID-19): Overview What is coronavirus (COVID-19)? The coronavirus disease (COVID-19) is caused by a virus. It is an illness that was first found in [facility], in August 2019. It has since spread worldwide. The virus can cause fever, cough, and trouble breathing. In severe cases, it can cause pneumonia and make it hard to breathe without help. It can cause . Coronaviruses are a large group of viruses. They cause the common cold. They also cause more serious illnesses like [place] respiratory syndrome (MERS) and severe acute respiratory syndrome (SARS). COVID-19 is caused by a novel coronavirus. That means it's a new type that has not been seen in people before. This virus spreads gufvrg-zu-fioxmv through droplets from coughing and sneezing. It can also spreadwhen you are close to someone who is infected. And it can spread when you touch something that has the virus on it, such as a doorknob or a tabletop. What can you do to protect yourself from coronavirus (COVID-19)? The best way to protect yourself from getting sick is to: Avoid areas where there is an outbreak. Avoid contact with people who may be infected. Wash your hands often with soap or alcohol-based hand sanitizers. Avoid crowds and try to stay at least 6 feet away from other people. Wash your hands often, especially after you cough or sneeze. Use soap and water, and scrub for at least 20 seconds. If soap and water aren't available, use an alcohol-based hand cyber policy and strategy planner. Call 911 anytime you think you may need emergency care. For example, call if: You have severe trouble breathing. (You can't talk at all.) You have constant chest pain or pressure. You are severely dizzy or lightheaded. You are confused or can't think clearly. Your face and lips have a blue color. You pass out (lose consciousness) or are very hard to wake up. Call your doctor now if you develop symptoms such as: Shortness of breath. Fever. Cough. If you need to get care, call ahead to the doctor's office for instructions before you go. Make sure you wear a face mask, if you have one, to prevent exposing other people to the virus. Where can you get the latest information? The following health organizations are tracking and studying this virus. Their websites contain themost up-to-date information. You'll also learn what to do if you think you may have been exposed tothe virus. .[place] Center for Disease Control and Prevention (CDC): The CDC provides updated news about the disease and travel advice. The website also tells you how to prevent the spread of infection. www.cdc.gov World Health Organization (WHO): WHO offers information about the virus outbreaks. WHO also has travel advice. www.who.int Current as of: December 22, 2019 Content Version: 12.4 [employer] Care instructions adapted under license by your healthcare professional. If you have questions about a medical condition or this instruction, always ask your healthcare professional. [employer] disclaims any warranty or liability for your use of this information. General Recommendations for Routine Cleaning and Disinfection of Households Community members can practice routine cleaning of frequently touched surfaces (for example: tables, doorknobs, light switches, handles, desks, toilets, faucets, sinks) with household trolley wire installer and EPA-registered disinfectants that are appropriate for the surface, following label instructions. Labels contain instructions for safe and effective use of the cleaning product including precautions you should take when applying the product, such as wearing gloves and making sure you have good ventilation during use of the product. These guidelines are focused on household settings and are meant for the general public. ? Cleaning refers to the removal of germs, dirt, and impurities from surfaces. Cleaning does not kill germs, but by removing them, it lowers their numbers and the risk of spreading infection. ? Disinfecting refers to using chemicals to kill germs on surfaces. This process does not necessarily clean dirty surfaces or remove germs, but by killing germs on a surface after cleaning, it can further lower the risk of spreading infection. General Recommendations for Cleaning and Disinfection of Households with People Isolated in Home Care - Confirmed or suspected COVID 19 ? Household members should educate themselves about COVID-19 symptoms and preventing the spread of COVID-19 in homes. ? Clean and disinfect high-touch surfaces daily in household common areas (e.g. tables, hard-backedchairs, doorknobs, light switches, remotes, handles, desks, toilets, sinks) o In the bedroom/bathroom dedicated for an ill person: consider reducing cleaning frequency to as-needed (e.g., soiled items and surfaces) to avoid unnecessary contact with the ill person. ? As much as possible, an ill person should stay in a specific room and away from other people in their home. ? The caregiver can provide personal cleaning supplies for an ill person's room and bathroom, unless the room is occupied by child or another person for whom such supplies would not be appropriate. These supplies include tissues, paper towels, trolley wire installer and EPA-registered disinfectants (see list link at CDC website). ? If a separate bathroom is not available, the bathroom should be cleaned and disinfected after each use by an ill person. If this is not possible, the caregiver should wait as long as practical after use by an ill person to clean and disinfect the high-touch surfaces. How to clean and disinfect: Hard Surfaces ? Wear disposable gloves when cleaning and disinfecting surfaces. Gloves should be discarded after each cleaning. If reusable gloves are used, those gloves should be dedicated for cleaning and disinfection of surfaces for COVID-19 and should not be used for other purposes. Consult the corn picker's instructions for cleaning and disinfection products used. Clean hands immediately after gloves areremoved. ? If surfaces are dirty, they should be cleaned using a detergent or soap and water prior to disinfection. ? For disinfection, diluted household bleach solutions, alcohol solutions with at least 70% alcohol, and most common EPA-registered household disinfectants should be effective. o Diluted household bleach solutions can be used if appropriate for the surface. Follow corn picker's instructions for application and proper ventilation. Check to ensure the product is not past itsexpiration date. Never mix household bleach with ammonia or any other cleanser. Unexpired householdbleach will be effective against coronaviruses when properly diluted. ? Prepare a bleach solution by mixing: ? 5 tablespoons (1/3rd cup) bleach per gallon of water or ? 4 teaspoons bleach per quart of water o Products with EPA-approved emerging viral pathogens excela healthpdf iconexternal icon are expected to be effective against COVID-19 based on data for harder to kill viruses. Follow the corn picker's instructions for all cleaning and disinfection products (e.g., concentration, application method and contact time, etc.). Soft (porous) surfaces such as carpeted floor, rugs, and drapes Remove visible contamination if present and clean with appropriate trolley wire installer indicated for use on these surfaces. After cleaning: Launder items as appropriate in accordance with the corn picker's instructions. If possible, launder items using the warmest appropriate water setting for the items and dry items completely, or Clothing, towels, linens and other items that go in the laundry ? Wear disposable gloves when handling dirty laundry from an ill person and then discard after eachuse. If using reusable gloves, those gloves should be dedicated for cleaning and disinfection of surfaces for COVID-19 and should not be used for other household purposes. Clean hands immediately after gloves are removed. o If no gloves are used when handling dirty laundry, be sure to wash hands afterwards. o If possible, do not shake dirty laundry. This will minimize the possibility of dispersing virus through the air. o Launder items as appropriate in accordance with the corn picker's instructions. If possible, launder items using the warmest appropriate water setting for the items and dry items completely. Dirtylaundry from an ill person can be washed with other people's items. o Clean and disinfect clothes hampers according to guidance above for surfaces. If possible, consider placing a garbage pick up man that is either disposable (can be thrown away) or can be laundered. CDC has a list of EPA approved cleaning products on their website - https://www.cdc.gov/coronavirus/ 2019-ncov/community/home/cleaning-disinfection.html https://www.[employer]/Vxtov-Dpkwgocilrh-Cdkujauv-Products-List.pdf documented in this encounter* Instructions* Mayi Mohan RN - 11/01/2020 Please bring your [facility] Surgical Information folder on the day of surgery. Please veronica the last dose taken (date and time ) on your Daily Medications List provided in your After Visit Summary. Please bring a photo ID and insurance information TAKE the following medications the morning of your surgery NONE You may take your prescription pain medications. You may take Tylenol (Acetaminophen) if needed forpain. No Motrin, Ibuprofen, or Advil 24 hours prior to surgery, or longer if instructed by your surgeon. No Aleve or Naprosyn 3 days prior to surgery, or longer if instructed by your surgeon. NO ASPIRIN OR ASPIRIN CONTAINING PRODUCTS 5 DAYS PRIOR TO SURGERY OR LONGER IF INSTRUCTED BY DR FREEMAN Additional instructions CHG shower kit and instructions given to patient. Please remember to use half the bottle the night before surgery and half the bottle the day of surgery. Clean sheets and clothes should be used aftereach use. FOLLOW ANY OTHER INSTRUCTIONS THAT DR FREEMAN MAY HAVE GIVEN YOU You will receive a reminder call the day before surgery with your Same Day Surgery arrival time. If you have specific questions, please call your surgeon. * Attachments The following attachments cannot be sent through Care Everywhere. * Laparoscopic Hysterectomy: Post-op (Afghan) * Cystoscopy: Post-op (Afghan) documented in this encounter* Instructions* Stephnaie Georges, DO - 11/08/2020 Laparoscopic Hysterectomy: What to Expect at Home Your Recovery A laparoscopic hysterectomy is surgery to take out the uterus. Your doctor put a lighted tube and surgical tools through small cuts in your belly to remove the uterus. You can expect to feel better and stronger each day. But you might need pain medicine for a week ortwo. You may get tired easily or have less energy than usual. The tiredness may last for several weeks after surgery. You will probably notice that your belly is swollen and puffy. This is common. The swelling will take several weeks to go down. You may take about 4 to 6 weeks to fully recover. It's important to avoid lifting while you are recovering so that you can heal. This care sheet gives you a general idea about how long it will take for you to recover. But each person recovers at a different pace. Follow the steps below to get better as quickly as possible. How can you care for yourself at home? Activity Rest when you feel tired. Be active. Walking is a good choice. Allow the area to heal. Don't move quickly or lift anything heavy until you are feeling better. You may shower 24 to 48 hours after surgery, if your doctor okays it. Pat the incision dry. Do not take a bath for the first 2 weeks, or until your doctor tells you it is okay. Ask your doctor when it is okay for you to have sex. Diet You can eat your normal diet. If your stomach is upset, try bland, low-fat foods like plain rice, broiled chicken, toast, and yogurt. If your bowel movements are not regular right after surgery, try to avoid constipation and straining. Drink plenty of water. Your doctor may suggest fiber, a stool softener, or a mild laxative. Medicines Your doctor will tell you if and when you can restart your medicines. He or she will also give you instructions about taking any new medicines. If you take aspirin or some other blood thinner, ask your doctor if and when to start taking it again. Make sure that you understand exactly what your doctor wants you to do. Be safe with medicines. Read and follow all instructions on the label. ? If the doctor gave you a prescription medicine for pain, take it as prescribed. ? If you are not taking a prescription pain medicine, ask your doctor if you can take an eedx-awh-gnayewc medicine. If your doctor prescribed antibiotics, take them as directed. Do not stop taking them just because you feel better. You need to take the full course of antibiotics. Incision care You may have stitches over the cuts (incisions) the doctor made in your belly. If you have strips of tape on the cut (incision) the doctor made, leave the tape on for a week or until it falls off. Wash the area daily with warm, soapy water, and pat it dry. Don't use hydrogen peroxide or alcohol.They can slow healing. You may cover the area with a gauze bandage if it oozes fluid or rubs against clothing. Change the bandage every day. Other instructions You may have some light vaginal bleeding. Wear sanitary pads if needed. Do not douche or use tampons. Don't have sex until the doctor says it is okay. Follow-up care is a morton part of your treatment and safety. Be sure to make and go to all appointments, and call your doctor if you are having problems. It's also a good idea to know your test resultsand keep a list of the medicines you take. When should you call for help? Call 911 anytime you think you may need emergency care. For example, call if: You passed out (lost consciousness). You have chest pain, are short of breath, or cough up blood. Call your doctor now or seek immediate medical care if: You have pain that does not get better after you take pain medicine. You cannot pass stools or gas. You have vaginal discharge that has increased in amount or smells bad. You are sick to your stomach or cannot drink fluids. You have loose stitches, or your incision comes open. Bright red blood has soaked through the bandage over your incision. You have signs of infection, such as: ? Increased pain, swelling, warmth, or redness. ? Red streaks leading from the incision. ? Pus draining from the incision. ? A fever. You have bright red vaginal bleeding that soaks one or more pads in an hour, or you have large clots. You have signs of a blood clot in your leg (called a deep vein thrombosis), such as: ? Pain in your calf, back of the knee, thigh, or groin. ? Redness and swelling in your leg or groin. Watch closely for changes in your health, and be sure to contact your doctor if you have any problems. Where can you learn more? Go to https://[email or web address].org and sign in to your [employer] account. Enter Q131 in the Search Health Information box to learn more about Laparoscopic Hysterectomy: What to Expect at Home. If you do not have an account, please click on the Sign Up Now link. Current as of: July 30, 2019 Content Version: 12.6 0692-5962 [employer] Care instructions adapted under license by [employer]. If you have questions about a medical condition or this instruction, always ask your healthcare professional. [employer] disclaims any warranty or liability for your use of this information. * Attachments The following attachments cannot be sent through Care Everywhere. * Hysterectomy: Abdominal: Post-op (Afghan) documented in this encounter History of Present Illness * Stacey Toribio RD, LD - 08/16/2020 9:26 AM EST Comprehensive Nutrition Assessment Type and Reason for Visit: Initial, Positive Nutrition Screen Nutrition Assessment: Received referral for cultural/presybeterian/ethnic food preferences as pt is [place], pt is POD # 4 s/p Primary Classical with posterior hysterotomy via vertical skin incision 2/2 Cat III FHT and massive uterine fibroids, currently ordered and tolerating a General Diet per MD documentation, will assign patient to a Level 1 and refer to the milking machine technician for continued monitoring during admit, dietitian is available as needed per re- consult, pt with likely d/c today per chartreview. Current Nutrition Therapies: DIET GENERAL; Nutrition Interventions: Food and/or Nutrient Delivery: Continue Current Diet Coordination of Nutrition Care: Continue to monitor while inpatient(sign off to milking machine technician to continue to monitor) Contact: pager x [phone] * Kuldip Zavaleta MD - 08/16/2020 5:56 AM EST POST OPERATIVE DAY # 4 Cynthia Molina is a 39 y.o. female This patient was seen & examined today. Her was complicated by: Patient Active Problem List Diagnosis S/P section Intramural, submucous, and subserous leiomyoma of uterus hemorrhage delivery Today she is doing well without any chief complaint. Her lochia is light. She denies chest pain, shortness of breath, lightheadedness and blurred vision. She is ambulating well. Flatus present. Bowelmovement present. Voiding spontaneously. She is tolerating solids. Pain is controlled yes. Vital Signs: Vitals: 08/14/20 0913 08/14/20201108/15/20 0908/15/202030 BP: 105/76 108/78 106/75 131/76 Pulse: 82 94 78 93 Resp: Temp: 97.7 F (36.5 C) 97.6 F (36.4 C) 97.9 F (36.6 C) 98.8 F (37.1 C) TempSrc: Temporal Temporal Temporal Temporal SpO2: 98% 96% 97% 97% Weight: Height: Urine Input & Output last 24hrs: No intake or output data in the 24 hours ending 08/16/20 0556 Physical Exam: General: no apparent distress, alert and cooperative Affect: appropriate Lungs: No increased work of breathing, good air exchange Abdomen: abdomen soft, non-distended, non-tender Fundus: non-tender, normal size, firm Incision: Clean, dry, and intact Extremities: no calf tenderness, non edematous Labs: Lab Results Component Value Date WBC 12.0 (H) 08/13/2020 HGB 10.7 (L) 08/13/2020 HCT 32.0 (L) 08/13/2020 MCV 89.1 08/13/2020 PLT 262 08/13/2020 B POS Antibody Screen: Antibody Screen Date Value Ref Range Status 08/11/2020 NEG NA Final No results found for: RUBELLAIGG LABOR DELIVERY ??? SCD's ONLY (labor through ambulation) SCD's PLUS Prophylactic Anticoagulation until discharge SCD's PLUS Prophylactic Anticoagulation for 6 weeks SCD's PLUS Therapeutic Anticoagulation for 6 weeks Vaginal Delivery [] BMI ? 40 kg/m2 Delivery All patients Vaginal Delivery [] BMI ? 40 kg/m2 AND [] Antepartum hospitalization ? 72 hours within the past month Delivery 1 Major Risk Factor: [] BMI ? 35 kg/m2 [] Low Risk Thrombophilia [] PPH+RBCs, IR, or operation [] Infection+Antibiotics [] Antepartum hospitalization ? 72 hours within the past month [] PMH: Sickle Cell, SLE, Cardiac Dz, Active IBD, Active Cancer, Nephrotic Syndrome OR 2 Minor Risk Factors: [] Multiple gestation [] Age > 40 [] PPH ? 1,000cc [] (+)FMH of VTE [] Smoker [] Preeclampsia [] BMI ? 40 kg/m2 AND [] Low Risk Thrombophilia OR ANY OF THE FOLLOWING: [] High Risk Thrombophilia without prior VTE [] Low Risk Thrombophilia with (+)FMH of VTE [] Any single prior VTE ANY OF THE FOLLOWING: [] Already on LMWH/UFH [] Multiple prior VTE [] High Risk Thrombophilia with prior VTE Low Risk Thrombophilia: FVL (heterozygous), Prothrombin (heterozygous), Protein C, Protein S High Risk Thrombophilia: FVL (homozygous), Prothrombin (homozygous), FVL+Prothrombin (heterozygous), Antithrombin III, APLS Assessment/Plan: 1. Cynthia Molina is a POD # 4 s/p Primary Classical with posterior hysterotomy via vertical skin incision 2/2 Cat III FHT and massive uterine fibroids 2. Care - Doing well, VSS - Female - Breast feeding - Contraception: Per private attending - Encourage ambulation and use of incentive spirometer - D/C wills catheter and saline lock IV on POD #1 - Postop Hb 10.7 - VTE Prophylaxis: Prophylactic Dosing until Discharge 3. hemorrhage - EBL 1500 cc - Bleeding currently minimal - Asx 4. Fibroid uterus - Multiple large uterine fibroids - Follow up outpatient - Pictures in media tab 5. Disposition: Anticipate discharge today per private attending's discretion Based on my clinical assessment, this patient is safe for self discharge (does not need transport by wheelchair) if she so chooses. Provider's Name: DO Fabiola Galicia MD 08/16/2020, 5:56 AM Maternal Medicine Attending Attestation: I have performed a history and physical examination on the patient and discussed the management with the residents physician. I reviewed and agree with the findings and plan as documented in the note. S/P Classical CS D/C home [facility] I spent 15 minutes at the visit, with more than 50% of the total face to face time of the visit in counseling and coordination of care. Kuldip Zavaleta * Kay Gerard RN - 08/15/2020 1:40 PM EST To [facility] via [facility] accom by to waiting cab. * Corrine Arias DO - 08/15/2020 6:27 AM EST POST OPERATIVE DAY # 3 Cynthia Molina is a 39 y.o. female This patient was seen & examined today. Her was complicated by: Patient Active Problem List Diagnosis Vaginal bleeding S/P section Intramural, submucous, and subserous leiomyoma of uterus hemorrhage delivery Today she is doing well without any chief complaint. Patient states she is doing well and [facility] Also would like to stay until tomorrow for discharge. Vital Signs: Vitals: 08/13/20 1611 08/13/20 2041 08/14/20 0913 08/14/202011 BP: 106/77 102/64 105/76 108/78 Pulse: 88 83 82 94 Resp: 16 14 12 16 Temp: 97.9 F (36.6 C) 97.7 F (36.5 C) 97.7 F (36.5 C) 97.6 F (36.4 C) TempSrc: Temporal Temporal Temporal Temporal SpO2: 95% 95% 98% 96% Weight: Height: Urine Input & Output last 24hrs: No intake or output data in the 24 hours ending 08/15/20626 Physical Exam: General: no apparent distress, alert and cooperative Affect: appropriate Lungs: No increased work of breathing, good air exchange Abdomen: abdomen soft, non-distended, non-tender Fundus: non-tender, normal size, firm, below umbilicus Incision: Clean, dry, and intact Extremities: no calf tenderness, non edematous Labs: Lab Results Component Value Date WBC 12.0 (H) 08/13/2020 HGB 10.7 (L) 08/13/2020 HCT 32.0 (L) 08/13/2020 MCV 89.1 08/13/2020 PLT 262 08/13/2020 B POS Antibody Screen: Antibody Screen Date Value Ref Range Status 08/11/2020 NEG NA Final No results found for: RUBELLAIGG LABOR DELIVERY ??? SCD's ONLY (labor through ambulation) SCD's PLUS Prophylactic Anticoagulation until discharge SCD's PLUS Prophylactic Anticoagulation for 6 weeks SCD's PLUS Therapeutic Anticoagulation for 6 weeks Vaginal Delivery [] BMI ? 40 kg/m2 Delivery All patients Vaginal Delivery [] BMI ? 40 kg/m2 AND [] Antepartum hospitalization ? 72 hours within the past month Delivery 1 Major Risk Factor: [] BMI ? 35 kg/m2 [] Low Risk Thrombophilia [] PPH+RBCs, IR, or operation [] Infection+Antibiotics [] Antepartum hospitalization ? 72 hours within the past month [] PMH: Sickle Cell, SLE, Cardiac Dz, Active IBD, Active Cancer, Nephrotic Syndrome OR 2 Minor Risk Factors: [] Multiple gestation [] Age > 40 [] PPH ? 1,000cc [] (+)FMH of VTE [] Smoker [] Preeclampsia [] BMI ? 40 kg/m2 AND [] Low Risk Thrombophilia OR ANY OF THE FOLLOWING: [] High Risk Thrombophilia without prior VTE [] Low Risk Thrombophilia with (+)FMH of VTE [] Any single prior VTE ANY OF THE FOLLOWING: [] Already on LMWH/UFH [] Multiple prior VTE [] High Risk Thrombophilia with prior VTE Low Risk Thrombophilia: FVL (heterozygous), Prothrombin (heterozygous), Protein C, Protein S High Risk Thrombophilia: FVL (homozygous), Prothrombin (homozygous), FVL+Prothrombin (heterozygous), Antithrombin III, APLS Assessment/Plan: 1. Cynthia Molina is a POD # 3 s/p primary classical w/ posterior uterine hysterotomy via vertical skin incision 2/2 Cat III FHT and massive uterine fibroids Care - Doing well, VSS - Female infant at [facility] - Pumping - Contraception: Per private attending - Encourage ambulation and use of incentive spirometer - D/C wills catheter and saline lock IV on POD #1 - Postop Hb 10.7 - VTE Prophylaxis: Prophylactic Dosing until Discharge PPH - EBL 1500cc - Lochia light - Asymptomatic Fibroid uterus - Multiple large uterine fibroids - Follow up outpatient - Pictures in media tab Disposition: Continue current care Based on my clinical assessment, this patient is safe for self discharge (does not need transport by wheelchair) if she so chooses. Provider's Name: DO Glenis Galicia DO 08/15/2020, 6:27 AM ATTENDING NOTE: I personally saw and evaluated the patient. I reviewed the care provided by the resident including the patient's medical history, physical exam findings, diagnosis and treatment plan. I also agree with the resident's documentation unless otherwise indicated: ? Pt is doing well. Would like to stay till POD#4 --- Total time spent with the patient was 15 minutes, of which greater than 50% of the time was spent counseling and coordinating care. * Ana Laura Nina DO - 08/14/2020 6:03 AM EST POST OPERATIVE DAY # 2 Cynthia Molina is a 39 y.o. female This patient was seen & examined today. Her was complicated by: Patient Active Problem List Diagnosis Vaginal bleeding S/P section Intramural, submucous, and subserous leiomyoma of uterus hemorrhage delivery Today she is doing well without any chief complaint. Her lochia is light. She denies chest pain, shortness of breath and headache. She is ambulating well. Flatus present. Bowel movement absent. Voiding spontaneously. She is tolerating solids. Pain is controlled yes. Vital Signs: Vitals: 08/13/20 0837 08/13/20 1201 08/13/20 1611 08/13/20 2041 BP: 100/63 102/67 106/77 102/64 Pulse: 83 80 88 83 Resp: 18 18 16 14 Temp: 97.9 F (36.6 C) 97.5 F (36.4 C) 97.9 F (36.6 C) 97.7 F (36.5 C) TempSrc: Temporal Temporal Temporal Temporal SpO2: 97% 95% 95% 95% Weight: Height: Urine Input & Output last 24hrs: Intake/Output Summary (Last 24 hours) at 08/14/2020 0604 Last data filed at 08/13/2020 1400 Gross per 24 hour Intake Output 1600 ml Net -1600 ml Physical Exam: General: no apparent distress, alert and cooperative Affect: appropriate Lungs: No increased work of breathing, good air exchange Abdomen: abdomen soft, non-distended, non-tender Fundus: non-tender, normal size, firm, below umbilicus Incision: Dressing remains in place Extremities: no calf tenderness, non edematous Labs: Lab Results Component Value Date WBC 12.0 (H) 08/13/2020 HGB 10.7 (L) 08/13/2020 HCT 32.0 (L) 08/13/2020 MCV 89.1 08/13/2020 PLT 262 08/13/2020 B POS Antibody Screen: Antibody Screen Date Value Ref Range Status 08/11/2020 NEG NA Final No results found for: RUBELLAIGG LABOR DELIVERY ??? SCD's ONLY (labor through ambulation) SCD's PLUS Prophylactic Anticoagulation until discharge SCD's PLUS Prophylactic Anticoagulation for 6 weeks SCD's PLUS Therapeutic Anticoagulation for 6 weeks Vaginal Delivery [] BMI ? 40 kg/m2 Delivery All patients Vaginal Delivery [] BMI ? 40 kg/m2 AND [] Antepartum hospitalization ? 72 hours within the past month Delivery 1 Major Risk Factor: [] BMI ? 35 kg/m2 [] Low Risk Thrombophilia [] PPH+RBCs, IR, or operation [] Infection+Antibiotics [] Antepartum hospitalization ? 72 hours within the past month [] PMH: Sickle Cell, SLE, Cardiac Dz, Active IBD, Active Cancer, Nephrotic Syndrome OR 2 Minor Risk Factors: [] Multiple gestation [] Age > 40 [] PPH ? 1,000cc [] (+)FMH of VTE [] Smoker [] Preeclampsia [] BMI ? 40 kg/m2 AND [] Low Risk Thrombophilia OR ANY OF THE FOLLOWING: [] High Risk Thrombophilia without prior VTE [] Low Risk Thrombophilia with (+)FMH of VTE [] Any single prior VTE ANY OF THE FOLLOWING: [] Already on LMWH/UFH [] Multiple prior VTE [] High Risk Thrombophilia with prior VTE Low Risk Thrombophilia: FVL (heterozygous), Prothrombin (heterozygous), Protein C, Protein S High Risk Thrombophilia: FVL (homozygous), Prothrombin (homozygous), FVL+Prothrombin (heterozygous), Antithrombin III, APLS Assessment/Plan: 1. Cynthia Molina is a POD # 2 s/p primary classical w/ posterior uterine hysterotomy via vertical skin incision 2/2 Cat III FHT and massive uterine fibroids Care - Doing well, VSS - Female infant at [facility] - Pumping - Contraception: Per private attending - Encourage ambulation and use of incentive spirometer - D/C wills catheter and saline lock IV on POD #1 - Postop Hb 10.7 - VTE Prophylaxis: Prophylactic Dosing until Discharge PPH - EBL 1500cc - Received 2U PRBC 08/12 prior to procedure - Received 2U PRBC and 1U FFP intraop - Ancef was redosed - Hgb 10.7 from 9.4 on admission - VSS Fibroid uterus - [id number] posterior mid and 6x6cm left fundal, degenerating anterior fibroid - Impressive pictures noted in media tab Disposition: Continue current care Based on my clinical assessment, this patient is NOT safe for self discharge (does not need transport by wheelchair) if she so chooses. Provider's Name: DO Glenis Galicia DO 08/14/2020, 6:04 AM Attending attestation note: I reviewed and agree with the care provided by the resident during the visit including the patient's medical history, the resident's findings in the physical exam, patient's diagnosis and treatment plan. 39 y.o. POD#2 Patient Active Problem List Diagnosis Vaginal bleeding S/P section Intramural, submucous, and subserous leiomyoma of uterus hemorrhage delivery Doing well POD#2, incision is appropriately tender to palpation. Discussed pumping frequency. Encourage her to work with specialists. Anticipate discharge on POD#4 per patient's preference.Recommend following up with MFM for incision check. For halfway fibroid follow-up, she would liketo follow-up with a female surgeon in the [facility] system. We recommended Dr. Freeman and will provider her with that contact number on her discharge instructions. I spent 15 minutes in the visit, with more than 50% of the total [id number] time of the visit in counseling/coordination of care. * Karina Chandler RN - 08/13/2020 12:17 PM EST Pt up to bathroom with standby assist. mira well. Unable to void at this time. Will attempt again. Keira care and pads changed. Pt back to bed, linen and gown changed. Pt set up to eat lunch. Dr dario branham. Pt asking for pass and supplements to be re ordered. * Iram Paz DTR - 08/13/2020 9:52 AM EST Nutrition rescreen completed. Patient assigned a level 1. RO * Karina Chandler RN - 08/13/2020 8:45 AM EST Pt set up with pump. Pump teaching given. Pt pumped for 20 minutes. Unable to express colostrum butencouraged pt to be consistent and keep attempting every 2- 3 hours. Pt and state understanding. * Mila Paulson MD - 08/13/2020 6:54 AM EST POST OPERATIVE DAY # 1 Cynthia Molina is a 39 y.o. female This patient was seen & examined today. Her was complicated by: Patient Active Problem List Diagnosis Vaginal bleeding S/P section Intramural, submucous, and subserous leiomyoma of uterus hemorrhage delivery Today she is doing well without any chief complaint. Her lochia is light. She denies chest pain, shortness of breath and headache. Flatus absent. Bowel movement absent. Wills catheter remains in place. She is tolerating solids. Pain is controlled yes. Vital Signs: Vitals: 08/12/20 1420 08/12/20 2130 08/12/20 2357 08/13/20 0616 BP: (!) 96/58 103/69 111/67 Pulse: 86 76 79 Resp: 16 16 18 Temp: 98.2 F (36.8 C) 97.9 F (36.6 C) 97.8 F (36.6 C) 97.8 F (36.6 C) TempSrc: Temporal Oral Oral Temporal SpO2: 94% 95% 96% Weight: Height: Urine Input & Output last 24hrs: Intake/Output Summary (Last 24 hours) at 08/13/2020 0655 Last data filed at 08/12/2020 213 Gross per 24 hour Intake 2772.5 ml Output 2555 ml Net 217.5 ml Physical Exam: General: no apparent distress, alert and cooperative Affect: appropriate Lungs: No increased work of breathing, good air exchange Abdomen: abdomen soft, non-distended, non-tender Fundus: non-tender, normal size, firm, below umbilicus Incision: Dressing remains in place Extremities: no calf tenderness, non edematous Labs: Lab Results Component Value Date WBC 13.9 (H) 08/12/2020 HGB 11.0 (L) 08/12/2020 HCT 32.6 (L) 08/12/2020 MCV 87.8 08/12/2020 PLT 281 08/12/2020 B POS Antibody Screen: Antibody Screen Date Value Ref Range Status 08/11/2020 NEG NA Final No results found for: RUBELLAIGG LABOR DELIVERY ??? SCD's ONLY (labor through ambulation) SCD's PLUS Prophylactic Anticoagulation until discharge SCD's PLUS Prophylactic Anticoagulation for 6 weeks SCD's PLUS Therapeutic Anticoagulation for 6 weeks Vaginal Delivery [] BMI ? 40 kg/m2 Delivery All patients Vaginal Delivery [] BMI ? 40 kg/m2 AND [] Antepartum hospitalization ? 72 hours within the past month Delivery 1 Major Risk Factor: [] BMI ? 35 kg/m2 [] Low Risk Thrombophilia [] PPH+RBCs, IR, or operation [] Infection+Antibiotics [] Antepartum hospitalization ? 72 hours within the past month [] PMH: Sickle Cell, SLE, Cardiac Dz, Active IBD, Active Cancer, Nephrotic Syndrome OR 2 Minor Risk Factors: [] Multiple gestation [] Age > 40 [] PPH ? 1,000cc [] (+)FMH of VTE [] Smoker [] Preeclampsia [] BMI ? 40 kg/m2 AND [] Low Risk Thrombophilia OR ANY OF THE FOLLOWING: [] High Risk Thrombophilia without prior VTE [] Low Risk Thrombophilia with (+)FMH of VTE [] Any single prior VTE ANY OF THE FOLLOWING: [] Already on LMWH/UFH [] Multiple prior VTE [] High Risk Thrombophilia with prior VTE Low Risk Thrombophilia: FVL (heterozygous), Prothrombin (heterozygous), Protein C, Protein S High Risk Thrombophilia: FVL (homozygous), Prothrombin (homozygous), FVL+Prothrombin (heterozygous), Antithrombin III, APLS Assessment/Plan: 1. Cynthia Molina is a POD # 1 s/p Primary Classical w/ psoterior uterine hysterotomy via vertical skin incision 2/ Cat III FHT Care - Doing well, VSS - Female infant [facility] - Bottle feeding - Contraception: Per private attending - Encourage ambulation and use of incentive spirometer - D/C wills catheter and saline lock IV on POD #1 - Postop Hb 10.7 - VTE Prophylaxis: Prophylactic Dosing until Discharge PPH - EBL 150cc - Received 2U PRBC 08/12 prior to procedure - Received 2U PRBC and 1U FFP intraop - Antibiotics were redosed - Hgb 11.0 @ 2241 - Hgb 10.7 this AM, stable - Fibrinogen 410 - PT/PTT pending - VSS, Asymptomatic Fibroid uterus - [id number] posterior mid and 6x6cm left fundal degenerating anterior fibroid - Pictures in media tab Disposition: Continue current care Based on my clinical assessment, this patient is safe for self discharge (does not need transport by wheelchair) if she so chooses. Provider's Name: Ana Laura NinaDO Glenis DaveDO 08/13/2020, 6:55 AM I performed a history and physical examination on the patient and discussed the management with theresident physician. I reviewed and agree with the findings and plan as documented in their note today. 39 at with the following: POD #1 after primary classical uterine with posterior hysterotomy secondary to massive fibroids. Doing well today. WE talked about her surgery, the blood products and the anticipated postparum/postoperative planning given her complicated . She and Levar had appropriate time to ask questions and they may eventually want to see the pictures of her uterus in the chart. Routine cares, encouraged ambulation and [facility] allow [facility]. She report +flatus today! Continued routine cares. I spent 15 minutes in the visit today on the floor reviewing the chart, discussing the case with the residency staff and nursing Mila Paulson MD * Daniela Gonzalez RN - 08/13/2020 6:40 AM EST Pt up to bathroom with RN assistance. Pt tolerated well. Pt's pads were changed and pt was returnedback to bed safely. Daniela Hayes RN - 08/13/2020 12:44 AM EST Pt refused Tdap and flu vaccine. Pt states she does not have an email address, so TIANA was not assigned to patient. Mila Segovia MD - 08/12/2020 6:54 PM EST MFM I was called due to concerns for Cat III tracing and more recurrent decelerations since approximately 1809. FHR 145 with minimal variability and now with decelerations which are persistent with tachycardia post deceleration and decreased variability. I reviewed the tracing at the bedside with the residents and RN and agree with the assessment of Cat III, and I discussed the concerns with this couple regarding their desires for their cares. They desire aggressive interventions at this time and after my concerns related to the tracing they asked appropriate questions and consented to . They understand the prognosis is poor for the fetuseither way at this time and the risks of surgery were addressed including but not limited to bleeding, massive transfusion, ICU stay, anesthesia, risk of hysterectomy and risk for future fertility and . The couple had time to think about their questions and desire to proceed with . I spoke with the application support engineer today and anesthesia is aware of this plan as well. She has received 2 units of blood and another 2 units with FFP are also on hold. Spoke with anesthesia and will plan on spinal at this time. The patient is aware of need for vertical skin and classical uterine incision. Will call applications programmer analyst oncology if needed. Mila Paulson * Narayan Stoll MD - 08/12/2020 6:40 PM EST FHT reviewed with Dr. Paulson in house. Over the last 4 hours, there have been increasing decelerations with deep variable decelerations tothe 70s. With return to 160s with a baseline of 140s. Over the last 4 hours there has been decreasing variability. Bleeding has also increased. FHT category III. Dr. Paulson in room discussing wwith patient and her spouse the current FHT and recommendation to proceed with Primary classical section. Pt consented for procedure including risks of infection and risks to surrounding structures including bowel, bladder and baby. Consented for risk of bleeding and methods to control bleeding includingmedications, intraoperative sutures and methods up to and including supracervical hysterectomy. Pt agrees Safety Huddle Huddle with charge nurse, anesthesia, attending and patient's nurse. All agree. HOOP FLARING MACHINE OPERATOR HELPER aware, application support engineer on there way in house This is an urgent section, plan to proceed in <30 minutes Decision time 0652 * Josue Wall MD - 08/12/2020 6:50 AM EST Maternal Medicine Service Resident Progress Note 08/12/2020 6:51 AM 08/11/2020 Hospital Day: 2 Cynthia Molina, 39 y.o. 23w3d Patient has been seen and examined. Pt has no complaints this morning. Denies pain or heavy vaginalbleeding. Resting comfortably in bed upon examination. Positive movement Positive vaginal bleeding Negative LOF Negative Contractions Vitals: 08/12/20 0530 08/12/20 0545 08/12/20 0600 08/12/20 0615 BP: Pulse: 78 83 78 78 Resp: Temp: TempSrc: SpO2: Weight: Height: FHT: 130, periods of minimal variability Accels: present Decels: intermittent variable and late decels Contractions: q10m, not feeling them Physical Exam: Gen: NAD HEENT: Normocephalic, Atraumatic, EOMI, MMM Abd: soft, gravid, NTND, no rebound, no guarding. negative fundal tenderness Ext: No LE edema, no calf tenderness or swelling Medications: Current Facility-Administered Medications Medication Dose Route Frequency Provider Last Rate Last Dose lactated ringers infusion Intravenous Continuous Rafaela Ball, DO 100 mL/hr at 08/11/20 0709 sodium chloride flush 0.9 % injection 10 mL 10 mL Intravenous 2 times per day Rafaela Ball, DO 10 mL at 08/11/20 2100 sodium chloride flush 0.9 % injection 10 mL 10 mL Intravenous PRN Rafaela Ball, DO acetaminophen (TYLENOL) tablet 650 mg 650 mg Oral Q4H PRN Rafaela Ball, DO 650 mg at 08/11/20 1619 Or acetaminophen (TYLENOL) suppository 650 mg 650 mg Rectal Q4H PRN Rafaela Ball, DO docusate sodium (COLACE) capsule 100 mg 100 mg Oral BID PRN Rafaela Ball, DO promethazine (PHENERGAN) tablet 12.5 mg 12.5 mg Oral Q6H PRN Rafaela Ball, DO Or ondansetron (ZOFRAN) injection 4 mg 4 mg Intravenous Q6H PRN Rafaela Ball, DO vitamin 27-1 MG tablet 1 tablet 1 tablet Oral Daily Rafaela Ball, magnesium sulfate (20 G/500 mL) infusion 2 g/hr Intravenous Continuous Glenis Dave, DO 50 mL/hr at 08/11/202338 2 g/hr at 08/11/202338 oxytocin (PITOCIN) 30 units in 500 mL infusion Override Pull citric acid-sodium citrate (BICITRA) 500-334 MG/5ML solution Assessment/Plan: Cynthia Molina is a 39 y.o. female 23w3d Vaginal Bleeding - Endorsed VB at the start of 15 weeks 10/24 to hx of fibroid uterus - Presented to [place] for heavy VB with contractions and soaked through 1 maxi pad, Hgb 9.4 at [facility] - In OB triage SVE cl/th/hi; SSE with active bleeding noted from the cervical os ~ 30 cc of blood noted; exam difficult d/t fibroid distorting cervix/vagina - Abdominal exam benign - B+ no indication for rhogam - Abruption labs negative, Hgb 6.9 on admission down to 8.9 today - CEFM; NPO w/ IVF - TVUS 08/11 demonstrated breech presentation, fundal placenta, oligohydramnios, and anterior abruption. EFW 37%ile at 539g. pericardial effusion and possible cleft lip visualized. Multiple uterine fibroids, two largest 15.6cm and 10cm. - Mag sulfate for neuroprotection on overnight, currently at 1.5g/hr and will titrate down today - S/p BMZx2, 12 hours apart - Cat II yesterday for periods of recurrent variable decels, epidural cath was placed and patient was counseled on possible need for PCD and C-Hyst if Cat III, persistently Cat II, or heavy vaginal bleeding - Body Masker oncology aware and blood type and crossed on hold - Bleeding light this morning and overall Cat I Anemia - Hgb 9.6 on admission, down to 8.9 today - Consider IV iron Fibroid Uterus - per documentation from [place]; 12x12 posterior mid and 6x6 cm left fundal fibroid as well as a degenerating fibroid near the cervix - Palpable on exam fundus 4-5 finger breaths above the umbilicus - Re-demonstrated on US yesterday AMA - declined AFP/CF/SMA screening 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 Josue Wall MD 08/12/2020, 6:51 AM Associated attestation - Mila Paulson MD - 08/12/2020 9:56 AM EST I performed a history and physical examination on the patient and discussed the management with theresident physician. I reviewed and agree with the findings and plan as documented in their note today. 39 yr old at 23 3/7 GA with the following: Multiple intramural fibroids obstructive in the lower uterine segment previously have discussed classical and would plan this with delivery at the fundus/posterior uterus, and the couple is aware of potential for hysterectomy at the time of delivery. [facility] oncology is aware of this patient Acute blood loss Anemia -hemoglobin of 8.9 this am and given concerns for potential ongoing bleeding and ongoing loss will transfuse 2 units and discussed with the couple. Fibrinogen is normal at this time but will repeat with her post-transfusion CBC to see if FFP is warranted. [address] and may consider IV iron if more stable with decreased bleeding. contractions in the face of abruption and multiple fibroids. Improved status with Cat1 since 2099, one very small variable noted and less contractions also noted overnight. Continue wills catheter right now and magnesium IV for the next 24+ hours. I had hoped to consider indocin but given her ongoing bleeding I will hold for now. AMA with clubfeet noted previously, ultrasound at [facility] office with good visualization of the upper lip and palate NO cleft and this was discussed with the couple (picture shown) and NICU is aware. Lots of shadowing from fibroids and they are aware of this which inhibits current anatomy.They had declined any aneuploidy screening this Vaginal bleeding and suspected abruption ongoing magnesium for neuroprotection/tocolysis given her current GA and discussed transfusion now over delivery given her current GA and stability of both patient and fetus, but they understand despite all interventions she may need to be delivered Prematurity of the fetus s/p BMZ X 2 delivery for Cat III tracing, terminal svetlana or maternal instability 7. RH positive Guarded prognosis for this and the couple desires aggressive interventions for this fetus. NICU is aware. I spent 25 minutes in the visit today on the floor reviewing the chart, discussing the case with the residency staff and nursing Mila Paulson MD * Mila Paulson MD - 08/11/2020 7:19 PM EST M review of tracing and plan of cares with being plastic tubing insulation supervisor for the weekend. I have reviewed this case with Dr. Nina and with the residents and have periodically logged in to review FHT which has been 140 with variability and accels, there are non-recurrent lates vs variabledecels and overall is Cat 2. She is on IV magnesium for neuroprotection and the diagnosis is consistent with probable abruption in the face of massive uterine fibroids. Currently per residency staff bleeding is minimal and she is overall stable. She is not feeling contractions noted on TOCO. Aggressive actions given the current GA/partental desires along with current maternal stability andplan to increase magnesium to 2.5gm for two hours to allow for neuroprotection and to help with tocolysis. Understandably tocolysis in the face of active abruption is a relative contraindication but if the alternative is delivery and then I feel as though it is important to be aggressive with this patient currently. Will also place wills catheter for easier access for if required. Dr. Nina had previously discussed that an emergent despite all efforts may not be possible. Would proceed with section if increased bleeding and concerns for maternal instability, recurrent decelerations and concerns for Cat 3 or bradycardia. Understandably at this time wouldprefer to not perform aggressive measures for this heart rate tracing unless deterioration and no other options, as this will result is extreme prematurity and all of the complications associated with that as well including . If is planned Classical fundal incision for delivery with vertical skin, have applications programmer analyst oncology on standby and plan for 2 IV lines and crossmatch for 4 units. Avoiding hysterectomy will be our goal if is required. 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 There was no evidence of cleft lip on that scan at [facility], but will alert NICUgiven the possibility on today's scan as well Guarded prognosis for the continued aggressive measures given current GA and couple's desires for aggressive interventions. Mila Paulson * Pushpa Bustillos DO - 08/11/2020 10:05 AM EST At bedside for extensive discussion with patient and regarding goals of care. FHT remains cat II with deep variable decels with reflex tachycardia. Still has moderate variability with periods of minimal variability. US was concerning for placental abruption and patient continues to have vaginal bleeding but is stable. At bedside with NICU team for discussion. Discussed what full resuscitation would involve and the risks to the infant. Also explained that patient would need a due to obstructing fibroids. Explained that she would need a vertical midline incision due to fibroids and very enlarged uterus. Explained that fibroids would put her at very high risk of bleeding. Also explained that, if we were unable to control bleeding from the fibroids, we would need to proceed with a hysterectomy. Explained the risks associated with , blood transfusion, and hysterectomy and patient consented. Will give magnesium sulfate and betamethasone and continue with CEFM. Will proceed with delivery if vaginal bleeding is life threatening or if category III hearttracing. Will allow time to benefit from betamethasone. Patient is agreeable to plan. * Pushpa Bustillos DO - 08/11/2020 6:29 AM EST Department of Obstetrics and Gynecology Labor and Delivery Triage Note CHIEF COMPLAINT: VB, fibroids HISTORY OF PRESENT ILLNESS: The patient is a 39 y.o. 23w2d. OB History No obstetric history on file. Patient presents with a chief complaint as above. Presents as a transfer from [place]. Reports a known history of fibroids for at least the past 3 years. She has never had surgery for these or taken any medications. She reports bleeding since 15w. Soaks at least a maxi pad a day. Has had only 10d of no bleeding since 15w. States when she bleeds heavily she also begins to have regular contractions. When the contractions slow down, the bleeding decreases. Presented to [place] overnight due to abdominal pain not resolved with Tylenol and continued vaginal bleeding. Soaked [address] her [address] over to [facility] from [place]. Upon arrival, states her pain has completely resolved with the Tylenol she received in [place]. Continues to have vaginal bleeding. Denies DFM/CTX. Estimated Due Date: Estimated Date of Delivery: None noted. PAST MEDICAL HISTORY: No past medical history on file. PAST SURGICAL HISTORY: No past surgical history on file. SOCIAL HISTORY: MEDICATIONS: Prior to Admission medications Not on File CARE: Complicated by: Vaginal bleeding Fibroid Uterus Club Foot AMA Hearing Loss REVIEW OF SYSTEMS: Pertinent items are noted in HPI. APPEARANCE: Pain: no PHYSICAL EXAM: Vital Signs: VS wnl-reviewed/Respirations normal effort There were no vitals filed for this visit. Abdomen: soft, NT, ND, no rebound/guarding, 2 palpable and visible fibroids that are firm in upper abdomen Uterus: gravid/non-tender, enlarged LE Edema: trace Speculum Exam: No pooling, 30cc of bright red blood in vault with slow active ooze from the cervix.Firm fibroid palpable at cervix that displaces cervix posterior and to patient's left. Cervix difficult to appreciate but feels thick heart rate: Category II, intermittent variable decels Cervix: Difficult to appreciate, feels thick and closed Contraction frequency: regular, every 2-3 minutes Membranes: Intact RESULTS: NST: N/A GENERAL LABS: No results found for this or any previous visit (from the past 24 hour(s)). TRIAGE COURSE: Vaginal bleeding noted on exam with approximately 30cc in vault and slow active oozefrom cervix. Patient denies pain on arrival. Contractions q2-3mins on toco. Will admit to . IMPRESSION: Vaginal bleeding Fibroid Uterus DISCUSSED WITH PNC PROVIDER: Dr. Brewer DISPOSITION: Admit to PNU documented in this encounter* Renee Johnson RN - 11/09/2020 10:21 AM EST Discharge instructions given to pt with good understanding * Stephanie Georges DO - 11/09/2020 6:18 AM EST NETWORK SUPPORT ENGINEER Progress Note Date: 11/09/2020 Time: 6:18 AM Cynthia Molina 39 y.o. female , POD # 1 s/p TLH, cystoscopy Patient seen and examined. Last night she was experiencing some pain and nausea but this has improved this morning. Pain is controlled. Patient is tolerating oral intake and has ordered breakfast this morning. Ate a breakfast sandwich last night for dinner without issues. She is urinating. She reports any brown spotting. She is ambulating to the restroom without difficulty. She is not passing flatus. She denies Fever/Chills, Chest Pain, SOB, N/V. Vitals: Vitals: 11/08/20 1955 11/08/20 2131 11/09/20 0151 11/09/20 0514 BP: 121/70 107/61 (!) 91/58 Pulse: 100 88 96 Resp: Temp: 99 F (37.2 C) 97.4 F (36.3 C) 98.6 F (37 C) TempSrc: Temporal Temporal Temporal Temporal SpO2: 96% 97% 95% Weight: Height: Intake/Output: Last Shift: @[id number]@ Current Shift: I/O this shift: In: 500 [P.O.:500] Out: 200 [Urine:200] Physical Exam: Gen: NAD, alert and cooperative HEENT: Normocephalic, atraumatic, EOMI, MMM Resp: CTABL, no WRR Card: RRR, no murmur Abd: soft, NT/ND, no rebound, no guarding. Present BS Incisions: C/D/I with steri strips Ext: No LE edema, no calf tenderness or swelling Medications: Current Facility-Administered Medications Medication Dose Route Frequency Provider Last Rate Last Admin sodium chloride flush 0.9 % injection 10 mL 10 mL Intravenous 2 times per day Stephanie Georges DO sodium chloride flush 0.9 % injection 10 mL 10 mL Intravenous PRN Stephanie Georges DO acetaminophen (TYLENOL) tablet 1,000 mg 1,000 mg Oral Q6H Stephanie Georges DO 1,000 mg at 11/09/20 0158 ondansetron (ZOFRAN-ODT) disintegrating tablet 4 mg 4 mg Oral Q8H PRN Stephanie Georges DO Or ondansetron (ZOFRAN) injection 4 mg 4 mg Intravenous Q6H PRN Stephanie Georges, DO oxyCODONE (ROXICODONE) immediate release tablet 5 mg 5 mg Oral Q4H PRN Stephanie Georges, DO 5 mg at 11/09/20 0158 Or oxyCODONE (ROXICODONE) immediate release tablet 10 mg 10 mg Oral Q4H PRN Stephanie Georges, DO ibuprofen (ADVIL;MOTRIN) tablet 600 mg 600 mg Oral Q6H PRN Stephanie Georges, DO docusate sodium (COLACE) capsule 100 mg 100 mg Oral BID PRN Stephanie Georges, DO simethicone (MYLICON) chewable tablet 80 mg 80 mg Oral Q6H PRN Stephanie Georges DO Assessment/Plan: Cynthia Molina 39 y.o. female , POD #1 s/p TLH, cystoscopy - Doing well, vitals stable - Encourage ambulation and use of incentive spirometer - UOP adequate overnight - Pain controlled with tylenol, ibuprofen and oxycodone - DVT Proph:SCDs while in bed - Diet:General - ADAT - Disposition: Anticipate discharge home today pending discussion with attending physician. Stephanie Georges DO 11/09/2020, 6:18 AM Associated attestation - Lovely Freeman MD - 11/09/2020 9:04 AM EST I reviewed and agree with the care provided by the resident during the visit including the patient's medical history, the resident's findings in the physical exam, patient's diagnosis and treatment plan. Patient reports doing well. Abd, soft appropriately tender. She is voiding, ambulating and tolerating PO. No flatus. Stable for d/c. We reviewed surgical images, findings, and post op care and expectations. She voices understanding. * Narayan Stoll MD - 11/08/2020 9:55 PM EST PM Rounding Pt seen and examined this afternoon. Doing well post-operatively. Denies any complaints. She is appropriately tender. Voiding freely, not yet passing flatus. Is in good spirits. Vitals: 11/08/20 2131 BP: 121/70 Pulse: 100 Resp: 18 Temp: 99 F (37.2 C) SpO2: 96% Exam NAD,A&Ox3 Abd: soft NT/ND Incision: port sites and suprapubic incision well appearing Plan Advised patient to hit nurses button if any issues arise overnight, encourage incentive spirometry If any issues overnight, page CHIEF MEDICAL OFFICER plastic tubing insulation supervisor, #[id number] * Isabel Brown RN - 11/08/2020 5:[address] Freeman at bedside. Aware of pts co pain and nausea. Pt to stay overnight. Admit orders entered. Pt up ambulating to restroom. Unable to void at present. Pt with some dizziness and emesis. Prn nausea and one time toradol dose administered. Will monitor. * Isabel Brown RN - 11/08/2020 4:10 PM EST Discharge instructions given to pt and pts spouse. Both verbalize understanding. Pt states pain is tolerable at a 3-4. Pt remains drowsy. Will monitor. documented in this encounter Assessments Diagnosis S/P section Other postprocedural status Vaginal bleeding Other specified noninflammatory disorder of vagina Intramural, submucous, and subserous leiomyoma of uterus hemorrhage Other immediate hemorrhage, unspecified as to episode of care delivery Early onset of delivery, unspecified as to episode of care Diagnosis Post-op pain- Primary Other acute postoperative pain S/P laparoscopic hysterectomy Acquired absence of both cervix and uterus Fibroid Leiomyoma of uterus, unspecified Procedure Findings Note Operative Note Department of Obstetrics and Gynecology Patient: Cynthia OJEDA: 1980 Date of Procedure: 11/08/20 Pre-operative Diagnosis: 39 y.o. female 1. Fibroid uterus Post-operative Diagnosis: Same Procedure: Total laparoscopic hysterectomy, partial bilateral salpingectomy and cystoscopy, lysis of adhesions Surgeon: Dr. Freeman Sales Service Promoter(s): Dr. Kay who was needed for instrument exchanges, retraction and exposure. Dr. Georges & Dr. Woodward for teaching purposes only Anesthesia: General, TAP block Findings: Adhesions of the omentum to the Enlarged fibroid uterus (1088g). Large 10cm left pedunculated fibroid. Right fundal 5cm subserous fibroid. Right very large posterior fibroid in the rectovaginal septum and into the right pararectal space distorting normal anatomy, normal tubes and ovaries. Fibroid with significant degeneration on extraction. Vigorous jets of urine from both ureteral orifices. Total IV fluids/Blood products: 1250 ml crystalloid Antibio (more content not included)... Chief Complaint and Reason for Visit Chief Complaint SCREENING Additional Source Comments INFORMATION SOURCE (unrecogn ized section and content) DATE CREATED AUTHOR 05/13/2020 [facility] DATE CREATED AUTHOR AUTHOR'S ORGANIZ ATION 10/10/2020 [facility] DATE CREATED AUTHOR AUTHOR'S ORGANIZ ATION 11/12/2020 [facility] DATE CREATED AUTHOR AUTHOR'S ORGANIZ ATION 11/29/2022 [facility] DATE CREATED AUTHOR AUTHOR'S ORGANIZ ATION 07/31/2025 [facility] Reason for Visit (unrecogniz ed section and content) Reason Comments Vaginal Bleeding Ordered Prescriptions (unrec ognized section and content) Prescription Sig Dispensed Refills Start Date End Da te docusate sodium (COLACE) 100 MG capsule Take 1 capsule by mouth 2 times daily as needed for Constipation 60 capsule 0 11/09/2020 ibuprofen (ADVIL;MOTRIN) 600 MG tablet Take 1 tablet by mouth every 6 hours 60 tablet 0 11/09/2020 oxyCODONE (ROXICODONE) 5 MG immediate release tabletIndications:Pos t-op pain Take 1 tablet by mouth every 6 hours as needed for Pain for up to 5 days. Intended supply: 3 days. Take lowest dose possible to manage pain 18 tablet 0 11/09/2020 11/14/2020 acetaminophen (TYLENOL) 500 MG tablet Take 2 tablets by mouth every 6 hours as needed for Pain 60 tablet 1 11/09/2020 oxyCODONE (ROXICODONE) 5 MG immediate release tabletIndications:Pos t-op pain Take 1 tablet by mouth every 6 hours as needed for Pain for up to 5 days. Intended supply: 3 days. Take lowest dose possible to manage pain 18 tablet 0 11/08/2020 11/09/2020 docusate sodium (COLACE) 100 MG capsule Take 1 capsule by mouth 2 times daily as needed for Constipation 60 capsule 0 11/08/2020 11/09/2020 acetaminophen (TYLENOL) 500 MG tablet Take 2 tablets by mouth every 6 hours as needed for Pain 60 tablet 1 11/08/2020 11/09/2020 ibuprofen (ADVIL;MOTRIN) 600 MG tablet Take 1 tablet by mouth every 6 hours 60 tablet 0 11/08/2020 11/09/2020 Goals (unrecognized section and content) Goals may be documented in a n alternate section FOR RECORDS PERTAINING TO PATIENTS WHO ARE OR HAVE BEEN ENROLLED IN A CHEMICAL DEPENDENCY/SUBSTANCEABUSE PROGRAM, SOME INFORMATION MAY BE OMITTED. This clinical summary was aggregated from multiple sources. Caution should be exercised in using it in the provision of clinical care. This summary normalizes information from multiple sources, and as a consequence, information in this document may materially change the coding, format and clinical context of patient data. In addition, data may be omitted in some cases. CLINICAL DECISIONS SHOULD BE BASED ON THE PRIMARY CLINICAL RECORDS. [employer] provides no warranty or guarantee of the accuracy or completeness of information in this document.
== END | disposition home or self-care (01) ==
PROVIDERS: PCP Family Medicine; Referring Provider Nurse Practitioner Women's Health; Visit Provider Nurse Practitioner Women's Health
DX: Z12.31 Encounter for screening mammogram for malignant neoplasm of breast (principal)
CPT/HCPCS: 77063; 77067

== ENCOUNTER → 2025-08-09 | Outpatient (CLI) | payer SELFPAY, OTHER ==
--- NOTE | 2025-08-09 14:02 | BI_ITS ---
EXAM: DIAG MAMM W/CAD, UNILAT 08/09/2025 CLINICAL HISTORY: F, Age 44 y/o , ABN MAMM TECHNIQUE: Procedure Code: [id number] Modality: MG Procedure: DIAG MAMM W/CAD, UNILAT. 90 degree lateral and compression spot views of the left breast were obtained. COMPARISON: Prior exam(s) dated August 02, 2025.. FINDINGS: TISSUE DENSITY: The breasts are extremely dense, which lowers the sensitivity of mammography. Bilateral Breast Mammographic Findings: No significant masses, calcifications or other abnormalities are identified. Sonographic correlation recommended. BI/DIAG MAMM W/CAD, UNILAT IMPRESSION: Unremarkable diagnostic mammogram. Sonographic correlation recommended. OVERALL FINAL ASSESSMENT BI-RADS 0: INCOMPLETE - NEED ADDITIONAL IMAGING EVALUATION. RECOMMENDATION: Ultrasound Recommended Additional Recommendation none A letter with findings and recommendations will be mailed to the patient. Reading Location: [id number]
--- NOTE | 2025-08-09 14:02 | US_ITS ---
PROCEDURE: BREAST LIMITED UNILATERAL 08/09/2025 REASON FOR EXAM: F, Age 44 y/o , ABN MAMM COMPARISON: Prior mammogram dated August 09, 2025 and August 02, 2025.. TECHNIQUE: Procedure Code: USBRSTLIMIT Modality: US Procedure: BREAST LIMITED UNILATERAL. Targeted sonogram of the upper-outer quadrant of the left breast was obtained. FINDINGS: There are several small cysts. The largest measures 9 mm x 9 mm x 5 mm. US/Breast Limited Unilateral IMPRESSION: Several small cysts in the upper-outer quadrant of the left breast. BI-RADS 2: BENIGN RECOMMENDATION: Routine annual follow-up in 1 Year Reading Location: [facility]
--- OUTSIDE RECORDS SUMMARY | 2025-08-09 18:21 | XMS RPT_ITS | CCD ---
Author Organization [facility] Care Team Providers Care Bankruptcy Processor Name Role Phone Unavailable Primary Care Provider UnavailJewel Valencia Primary Care Provider [phone] Jewel Armstrong Primary Care Provider UnavailCODIE Paula Primary Care Unavailable CODIE NOVAK Consulting Unavailable CODIE NOVAK Attending Unavailable CODIE NOVAK Admitting Unavailable PROVIDER, UNKNOWN Consulting Unavailable CODIE NOVAK Primary Care Unavailable CODIE NOVAK Consulting Unavailable CODIE NOVAK Attending Unavailable CODIE NOVAK Admitting Unavailable PROVIDER, UNKNOWN Consulting Unavailable Kaushik Davidson MD Unavailable [phone] Wilman CARR, Dr. Kaushik Ragland Unavailable Jose Carlos ZELAYAN, Mary Unavailable Dameon Olson MD Unavailable Robert ZELAYAN, Anne Unavailable Unavailable Jewel Armstrong MD Unavailable Lazaro ZELAYAN, Lucio Unavailable Unavailable Codie Novak PA-C Unavailable Bettye ARAUJO, Nupur Ragland Unavailable Unavailab christina Roper CNM, Crystal K Unavailable Unavailable Unavailable Codie Novak PA-C Unavailable [phone] Kaushik Davidson Primary Care Unavailable Bernadette HOME HEALTH CARE SOCIAL WORKER, Arlene Referring Unavailable Bernadette HOME HEALTH CARE SOCIAL WORKER, Arlene Attending Unavailable Bernadette HOME HEALTH CARE SOCIAL WORKERArlene Referring Unavailable Bernadette HOME HEALTH CARE SOCIAL WORKER, Arlene Attending Unavailable Kaushik Davidson Primary Care Unavailable [...] from all sources in 24 hours. Barley [place] Juice Powder (2 sources) Start: 08-13-2020 Barley [place] Ju ice Powder Start: 08-12-2020 End: 08-13-2020 Barley [place] Juice Powder busPIRone hydrochloride 5 mg oral [...] {Gram} Refills: 0 Ordered: 01-Jun-2021 LYLY Roper K Start: 01-Jun-2021 End: 29-Jun-2021 Status: Inactive [...] Start: 08-17-2020 take 1 tablet by elli th twice daily at mealtime ferrous sulfate (IRON [...] 2 times daily Composure 0 Active NONFORMULARY Andrew e by mouth daily Aloe [...] units in 500 mL infusion Override Pull Ictgke-P9-C9-T52-S0-BU (PRENA1 PO) (4 sources) take 1 capsule by mouth once daily Xzjduj-R6-V5-F99-P8-WR (PRENA1 PO) Take 1 capsule by mouth daily 0 Suspended take 1 capsule by mouth once afsaneh ly Qjjllp-S0-N2-P17-A6-JX (PRENA1 PO) Take 1 capsule by mouth [...] conditions (not mental disorders or infectious disease) (6 sources) Patient encounter status; Translations: [Encounter for screening for lipoid disorders] Onset: 08-02-2025 03-24-2024 Episodic Other skin disorders (2 sources) [...] been having some SOB and then played [employer] and complained of heartburn and . 11-18-2022 [...] well on this dose.Continues to go to [facility]. Was doing well in the fall that [...] Test Name Value Interpretation Reference Range Facility Director Special Education Office Visit Reporton 08-02-2025 Director Special Education Office Visit Report [facility] [address] [place] [address], [address] [place] [address] OFFICE VISIT Date of Service: 08/02/25 MR#: [id number] Acct: [id number] Name: CYNTHIA MOLINA Rep #: [id number] : 1980 Provider: JUDE mason Age/Sex: 44/F [place] [facility]: Signed Intake Vital Signs 08/11/20 02:42 08/02/25 10:11 Height 5 ft 6 in 5 ft 6 in Intake Visit Reasons: Mammogram Event Allergies No Known Allergies Allergy (Verified 08/02/25 10:12) PFSH Surgical History (Updated 08/02/25 @ 10:17 by Arlene Fleming NP, JUDE) S/P section S/P hysterectomy Family History (Updated 08/02/25 @ 10:15 by Arlene Fleming NP, JUDE) Grandmother Cancer pancreatic Social History (Updated 08/02/25 @ 10:16 by Arlene Fleming NP, HOME HEALTH CARE SOCIAL WORKER-C) adopted: No household members: spouse and family Smoking Status: Never smoker alcohol intake: never substance use type: does not use what type of physical activity do you participate in: walking seatbelt use: sometimes do you feel safe at home: Yes HPI Mammogram Event Details: CYNTHIA MOLINA is a 44 year old who presents for breast exam and mammogram. Denies concerns today. Had mammogram for right breast mass in 2021 at [facility]. Confirmed fibrocystic/dense breasts and no abnormality found. States area persists and stable. She did breast feed daughter. No menses/hysterectomy History 1 Elective abortions Hx Para 1 Spontaneous abortions Hx # Term Pregnancies Ectopic pregnancies Hx # Pregnancies Multiple births # of living children ROS Const Constitutional: Reports system reviewed and no additional complaints, except as documented : Reports system reviewed and no additional complaints, except as documented Skin Skin/Breast: Reports as per HPI Psych Psych: Reports system reviewed and no additional complaints, except as documented Exam Const General: cooperative and no acute distress Orientation: oriented x3 HENMT Head: normal to inspection Neck Neck: normal visual inspection Chest Breast inspection: normal inspection of the breasts and normal inspection of the axillae Breast palpation: normal palpation of the breasts (bilaterally dense breasts) and normal palpation of the axillae Resp Effort Inspection: normal respiratory effort Coding Level of Care Code Attention Ishaan Diagnoses Breast screening Z12.39 Assessment and Plan Assessment and Plan (1) Breast screening: Status: Acute Orders: Orders SCRN MAMM (CAD)W/PATRICE BILAT Today Plan Normal breast exam Screening mammogram. 08/02/25 1030 Date Arlene Fleming NP HOME HEALTH CARE SOCIAL WORKER-C Brenda Signature: Date (if applicable) CC: Normal [facility] SCRN MAMM (CAD)W/PATRICE BILATo n 08-02-2025 SCRN MAMM (CAD)W/PATRICE BILAT [facility] Imaging Services [address] [place], [place] [id number] SCRN MAMM (CAD)W/PATRICE BILAT MR#: [id number] Acct: [id number] Name: CYNTHIA MOLINA Rep #: [id number] : 1980 F 44 From: Luis A shen MD PCP: Dr. Kaushik Davidson MD Status: REG CLI Study: SCRN MAMM (CAD)W/PATRICE BILAT Date of Exam: 07/23 10/16 Exam# [id number] Ordering Dr: Arlene Fleming NP HOME HEALTH CARE SOCIAL WORKER -C EXAM: SCRN MAMM (CAD)W/PATRICE BILAT DATE: 08/02/2025 CLINICAL HISTORY: F, Age 44 y/o , SCREEN No family history. TECHNIQUE: Procedure Code: BISMWCADBTOM Modality: MG Procedure: SCRN MAMM (CAD)W/PATRICE BILAT COMPARISON: Prior exam(s) dated May 29, 2022.. FINDINGS: TISSUE DENSITY: The breasts are extremely dense, which lowers the sensitivity of mammography. Bilateral Breast Mammographic Findings: Questionable 1.6 cm by 2 cm nodular density seen in the MLO view in the upper aspect of the breast. This is not definitely seen on the craniocaudad view. The patient will be recalled for additional views including 90 degree lateral and compression spot views. BI/SCRN MAMM (CAD)W/PATRICE BILAT IMPRESSION: Questionable nodular density in the left breast as described. The patient will be recalled for additional views. OVERALL FINAL ASSESSMENT BI-RADS 0: INCOMPLETE - NEED ADDITIONAL IMAGING EVALUATION. RECOMMENDATION: Additional Views obtained/call backs Additional Recommendation none A letter with findings and recommendations will be mailed to the patient. Reading Location: [id number] CC: HOME HEALTH CARE SOCIAL WORKER-C Arlene Fleming; Dr. Kaushik Davidson MD Emergency Medical Technician/Driver: Signed Normal [facility] CBC + DIFFon 11-26-2022 Baso # 0.00 x10EE3/UL Normal 0.00 - 0.10 [facility] Comment on above: Performed By: #### 2 33403 #### [place] [address] Basophils/100 WBC (Bld) 0.3 % Normal 0.0 - 2.0 % [facility] Comment on above: Performed By: #### 2 44929 #### [place] [address] CBC + DIFF Normal [facility] Comment on above: Result Comment: CBC- COMPLETE BLOOD COUNT Performed By: #### 2 00496 #### [place] [address] EO # 0.00 x10EE3/UL Normal 0.00 - 0.50 [facility] Comment on above: Performed By: #### 2 48173 #### [place] [address] Eosinophils/100 WBC (Bld) 0.6 % Normal 0.0 - 7.0 % [facility] Comment on above: Performed By: #### 2 93744 #### [place] [address] Erythrocyte distribution width (RBC) [Ratio] 13.2 % Normal 12.0 - 15.6 % [facility] Comment on above: Performed By: #### 2 88606 #### [place] [address] Hematocrit (Bld) [Volume fraction] 41.8 % Normal 34.0 - 46.0 % [facility] Comment on above: Performed By: #### 2 28490 #### [place] [address] Hemoglobin (Bld) [Mass/Vol] 14.5 g/dL Normal 12.0 - 16.0 g/dL [facility]. Comment on above: Performed By: #### 2 93814 #### [place] [address] Lymph # 1.50 x10EE3/UL Normal 0.80 - 2.80 [facility] Comment on above: Performed By: #### 2 26394 #### [place] [address] Lymphocytes/100 WBC (Bld) 18.3 % Abnormal 20.0 - 45.0 % [facility].; [facility] Comment on above: Performed By: #### 2 98639 #### [place] [address] MANUAL DIFF N/A Normal [facility].; [facility] Comment on above: Performed By: #### 2 32602 #### [place] [address] MCH (RBC) [Entitic mass] 30 pg Normal 27 - 33 pg [facility].; [facility]. Comment on above: Performed By: #### 2 92049 #### [place] [address] MCHC 35 X10 3 Normal 32 - 36 [facility] Comment on above: Performed By: #### 2 38416 #### [place] [address] MCV (RBC) [Entitic vol] 87 fL Normal 80 - 99 fL [facility]; [facility] Comment on above: Performed By: #### 2 93542 #### [place] [address] Hemphill # 0.40 x10EE3/UL Normal 0.20 - 1.00 [facility] Comment on above: Performed By: #### 2 00660 #### [address] [place] [address] MONOS % 5.2 % Normal 0.0 - 10.0 [facility] Comment on above: Performed By: #### 2 77599 #### [facility],[address] [place] [address] Morphology Luigi (Bld) [Interp] N/A Normal [facility].; [facility] Comment on above: Performed By: #### 2 46037 #### [facility],[address] [place] [address] Neut # 6.30 x10EE3/UL Normal 1.50 - 7.10 [facility] Comment on above: Performed By: #### 2 14896 #### [place] [id number] Neutrophils/100 WBC (Bld) 75.6 % Normal 46.0 - 76.0 % [facility]; [facility] Comment on above: Performed By: #### 2 96121 #### [place] [id number] PLATELET 312 x10EE3/UL Normal 150 - 450 [facility] Comment on above: Performed By: #### 2 77531 #### [place] [address] Platelet mean volume (Bld) [Entitic vol] 7.5 fL Normal 6.6 - 10.5 fL [facility]; [facility], [facility]. Comment on above: Result Comment: AUTO MATED DIFFERENTIAL Performed By: #### 2 02293 #### [place] [id number] RBC 4.78 x 10EE6/UL Normal 4.10 - 5.[address] [facility] Comment on above: Performed By: #### 2 97380 #### [place] [address] WBC 8.3 x 10EE3/UL Normal 4.5 - 10.8 [facility] Comment on above: Performed By: #### 2 40021 #### [facility],[address] [place] [address] CV ECHO COMPLETEon 3 CV ECHO [address] [address] Patient: CYNTHIA MOLINA Phone#: : 1980 Age: 41 Gender: F Pt. Type: Out Account: [id number] Location: Ordering: CODIE NOVAK Exam Date: 11/26/2022/10:37 Family Phys: Charge Code: [id number] Physician: Kingsbury Order #: [id number] Dose#: PROCEDURE: ECHOCARDIOGRAM WITH DOPPLER AND COLOR FLOW HISTORY: Patient is a 41-year-old female with history of aortic valve disorder INDICATIONS: FAM HX AORTIC VALVE DISORDER COMPARISON: None. TECHNIQUE: A 2-D ultrasound, color spectral Doppler and M-mode evaluation of the heart and great vessels. PATIENT MEASUREMENTS: Height (in.): 66 BSA: 1.7 Weight (lbs.): 135 BP: 108/77 Rn Ante Partum: CHASTITY M MODE 2D MEASUREMENTS AND CALCULATIONS: [...] 41 Gender: F Pt. Type: Out Account: [id number] [facility] Exam Date: 11/26/2022/10:37 Family Phys: Charge Code: [id number] Physician: Kingsbury Order #: [id number] Dose#: AORTIC Ao V2 max: 1.14 m/s [...] 41 Gender: F Pt. Type: Out Account: [id number] Location: Ordering: [facility] Exam Date: 11/26/2022/10:37 Family Phys: Charge Code: [id number] Physician: Kingsbury Order #: [id number] Dose#: CONCLUSION: 1. Left ventricle is normal [...] CHAMBERS MD on 11/28/2022 at 10:15 Normal [facility] LIPID PROFILEon 11-26-2022 Cholesterol [Mass/Vol] 242 mg/dL Abnormal 0 - 240 mg/dL [facility] Comment on above: Performed By: #### 2 45401 #### [address] [address] Cholesterol in HDL [Mass/Vol] 59 mg/dL Normal 40 - 60 [facility] Comment on above: Performed By: #### 2 50794 #### [address] [address] Cholesterol in LDL [Mass/Vol] 173 mg/dL Abnormal 0 - 129 mg/dL [facility] Comment on above: Performed By: #### 2 67705 #### [facility],[address] [place] [address] Cholesterol.total/Ch olesterol in HDL [Mass ratio] 4.1 {ratio} Normal 0.0 - 5.0 [facility]. Comment on above: Performed By: #### 2 90077 #### [facility],[address] [place] [address] Lipid 1996 panel Normal [facility] Comment on above: Result Comment: LIPI D PROFILE Performed By: #### 2 46548 #### [facility],[address] [place] [address] Triglyceride [Mass/Vol] 48 mg/dL Normal 0 - 150 mg/dL [facility], [facility].; [facility], [facility]. Comment on above: Performed By: #### 2 97195 #### [facility],[address] [place] [address] Laboratory - Chemistry and C hemistry - challengeon 11-26-2022 Cholesterol in HDL [Mass or moles/Vol] 59 mg/dL Normal 40 - 60 mg/dL [facility], [facility].; [place], [facility]. Lipid 1995 panel LIPID PROFILE Normal [facility].; [facility]. Laboratory - Hematology and Cell countson 11-26-2022 Basophils (Bld) [#/Vol] 0.00 {3/UL} Normal 0.00 - 0.10 {3/UL} [facility], [facility].; [facility], [employer] CBC W Auto Differential panel (Bld) CBC + DIFF Normal [facility].; [facility], [facility]. Eosinophils (Bld) [#/Vol] 0.00 {3/UL} Normal 0.00 - 0.50 {3/UL} [facility].; [facility]. Lymphocytes (Bld) [#/Vol] 1.50 {3/UL} Normal 0.80 - 2.80 {3/UL} [facility].; [facility], [facility]. MCHC (RBC) [Mass/Vol] 35 {X10_3} Normal 32 - 36 {X10_3} [facility], [facility].; [employer], [employer]. Monocytes (Bld) [#/Vol] 0.40 {3/UL} Normal 0.20 - 1.00 {3/UL} [facility].; [place] [employer]. Monocytes/100 WBC (Bld) 5.2 % Normal 0.0 - 10.0 % [facility].; [facility], [facility]. Neutrophils (Bld) [#/Vol] 6.30 {3/UL} Normal 1.50 - 7.10 {3/UL} [facility], [facility].; [place] [employer], [facility]. Platelets (Bld) [#/Vol] 312 {3/UL} Normal 150 - 450 {3/UL} [facility].; [place] [employer], [facility]. RBC (Bld) [#/Vol] 4.78 {6/UL} Normal 4.10 - 5.3 0 {6/UL} [facility], [facility].; [employer], [employer]. WBC (Bld) [#/Vol] 8.3 {3/UL} Normal 4.5 - 10.8 {3/UL} [employer], [employer] [place], [employer]. Laboratory - Chemistry and C hemistry - challengeon 11-18-2022 Albumin [Mass/Vol] 4.5 g/dL Normal 3.6 - 5.1 g/dL [facility].; [place], [facility]. Albumin/Globulin [Mass ratio] 1.6 {ratio} Normal 1.0 - 2.5 [facility], [facility].; [employer], [facility]. ALP [Catalytic activity/Vol] 43 U/L Normal 31 - 125 U/L [employer] [facility].; [place] [employer], [facility]. ALT [Catalytic activity/Vol] 12 U/L Normal 6 - 29 U/L [place] [facility] [facility].; [place] [employer], [employer]. AST [Catalytic activity/Vol] 12 U/L Normal 10 - 30 U/L [place] [facility], [facility].; [employer], [employer]. Bilirubin [Mass/Vol] 0.8 mg/dL Normal 0.2 - 1 .2 mg/dL [facility], [facility].; [employer], [employer]. Calcium [Mass/Vol] 9.4 mg/dL Normal 8.6 - 10. 2 mg/dL [place] [facility], [facility].; [facility], [facility]. Chloride [Moles/Vol] 106 mmol/L Normal 98 - 11 0 mmol/L [facility], [facility].; [facility], [facility] CO2 [Moles/Vol] 26 mmol/L Normal 20 - 32 mmol/L [facility], [facility].; [facility], [facility] Creatinine [Mass/Vol] 0.77 mg/dL Normal 0.50 - 0.99 mg/dL [facility], [facility].; [facility], [facility] Ferritin [Mass/Vol] 75 ng/mL Normal 16 - 154 ng/mL [facility].; [facility], [facility] GFR/1.73 sq M.predicted among non-blacks MDRD (S/P/Bld) [Vol rate/Area] 100 mL/min/{1.73_m2} Normal [facility].; [facility], [facility] Glucose [Mass/Vol] 100 mg/dL Abnormal 65 - 99 mg/dL [facility], [facility].; [facility], [facility] Potassium [Moles/Vol] 4.4 mmol/L Normal 3.5 - 5.3 mmol/L [facility].; [facility], [facility] Protein [Mass/Vol] 7.3 g/dL Normal 6.1 - 8.1 g/dL [facility].; [facility], [facility] Sodium [Moles/Vol] 141 mmol/L Normal 135 - 146 mmol/L [facility], [facility].; [facility], [facility] Urea nitrogen [Mass/Vol] 11 mg/dL Normal 7 - 25 mg/dL [facility], [facility].; [facility], [facility] No Panel Informationon 11-18 BUN/CREATININE RATIO NOT APPLICABLE Normal 6 - 22 [facility], [facility]; [facility], [facility] GLOBULIN 2.8 Normal 1.9 - 3.7 [facility], [facility].; [facility], [facility] IRON, TOTAL 141 ug/dL Normal 40 - 190 ug/dL [facility], [facility].; [facility], [facility] TSH W/REFLEX TO FT4 3.84 {mIU/L} Normal [facility], [facility].; [facility] WHITE BLOOD CELL COUNT Normal [facility].; [facility], [facility]. HCG,Urine Qualon 11-08-2020 Beta HCG ( test) Ql (U) Negative Normal Negative [facility] Comment on above: Result Comment: Preg indigo is the most common reason for HCG in urine, although choriocarcinoma, hydatidiform mole, and certain nontropho- blastic malignancies also result in detectable urinary HCG levels. Sensitivity = 20mIU/mL. Performed By: #### H EMOG, MG3, FIBGN, CMP3, PT/AP #### [facility] [address] [place] [phone] , urineon 1 Beta HCG ( test) Ql (U) Negative Negative NA [employer] Work Phone: Comment on above: is the mos t common reason for HCG in urine, although choriocarcinoma, hydatidiform mole, and certain nontropho- blastic malignancies also result in detectable urinary HCG levels. Sensitivity = 20mIU/mL. Test Performed by [facility], [address] [place] [address] [employer] Work Phone: Surgical Pathologyon [address] [facility] PATHOLOGY AND LABORATORY MEDICINE [address] [place] [address] FINAL SURGICAL PATHOLOGY REPORT NAME: CYNTHIA MOLINA : 1980 39 Y F BILLING NO.: [id number] LOCATION: [id number] PROCEDURE 11/08/2020 DATE: SURGEON: LOVELY [...] Sectioning through reveals a pinpoint lumen. Multiple business process representative sections are submitted. Cassette summary: 1 and 2 are two parallel sections of cervix; 3 - 5 are multiple sections that include the myometrium; 6 is business process representative section of hard nodule; 7 is [...] characteristics determined by the clinical laboratories of [facility]. They have not been cleared by the [...] negativity on decalcified specimens. Professional Performing Location: [address] [address]. DEPARTMENT OF PATHOLOGY AND LABORATORY MEDICINE [place], [place] [address] Normal [facility] TS GELon 11-08-2020 TS GEL ABO Group: B Rh, Gel: POS Antibody Screen Gel: NEG Normal [facility] Comment on above: Performed By: #### H EMOG, MG3, FIBGN, CMP3, PT/AP #### [address] [address] TYPE AND SCREENon 11-08-2020 Sodium [Moles/Vol] B [facility] Work Phone: Sodium [Moles/Vol] Positive [facility] Work Phone: Sodium [Moles/Vol] Negative [facility] Work Phone: Test Performed by [address] [address] [facility] Work Phone: CBCon 11-01-2020 Erythrocyte distribution width (RBC) [Ratio] 14.4 % 11.5 - 14.5 % [facility] Work Phone: Hematocrit (Bld) [Volume fraction] 43.3 % 35 - 47 % [employer] Work Phone: Hemoglobin (Bld) [Mass/Vol] 14.3 g/dL 11.7 - 16 g/dL [employer] Work Phone: MCH (RBC) [Entitic mass] 28.4 pg 26 - 34 pg [facility] Work Phone: MCHC (RBC) [Mass/Vol] 33.0 % 32 - 36 % [employer] Work Phone: MCV (RBC) [Entitic vol] 86.2 fL 79 - 98 fL [employer] Work Phone: Platelet mean volume (Bld) [Entitic vol] 7.9 fL 7.4 - 10.4 fL [employer] Work Phone: Platelets (Bld) [#/Vol] 278 10*3/uL 140 - 440 10*3/uL [facility] Work Phone: RBC (Bld) [#/Vol] 5.02 10*6/uL 3.8 - 5.2 10*6/uL [employer] Work Phone: WBC (Bld) [#/Vol] 6.5 10*3/uL 3.6 - 10.7 10*3/uL [employer] Work Phone: Test Performed by [facility], [address] [place] [id number] [facility] Work Phone: Hemogramon 11-01-2020 Erythrocyte distribution width (RBC) [Ratio] 14.4 % Normal 11.5-14.[address] [facility] Comment on above: Performed By: #### H EMOG, MG3, FIBGN, CMP3, PT/AP #### [facility] [address] [place] [phone] Hematocrit (Bld) [Volume fraction] 43.3 % Normal 35.0-47.[address] [facility] Comment on above: Performed By: #### H EMOG, MG3, FIBGN, CMP3, PT/AP #### [facility] [address] [place] [address], [place] Hemoglobin (Bld) [Mass/Vol] 14.3 g/dL Normal 11.7-16.0 [facility] Comment on above: Performed By: #### H EMOG, MG3, FIBGN, CMP3, PT/AP #### [address] [address] [place], [place] MCH (RBC) [Entitic mass] 28.4 pg Normal 26.0-34.0 [facility] Comment on above: Performed By: #### H EMOG, MG3, FIBGN, CMP3, PT/AP #### [address] [address] [place], [place] MCHC (RBC) [Mass/Vol] 33.0 % Normal 32.0-36.0 [facility] Comment on above: Performed By: #### H EMOG, MG3, FIBGN, CMP3, PT/AP #### [address] MCV (RBC) [Entitic vol] 86.2 fL Normal 79.0-98.0 [facility] Comment on above: Performed By: #### H EMOG, MG3, FIBGN, CMP3, PT/AP #### [address] [address] [address] [place], [place] Platelet mean volume (Bld) [Entitic vol] 7.9 fL Normal 7.4-10.4 [facility] Comment on above: Performed By: #### H EMOG, MG3, FIBGN, CMP3, PT/AP #### [address] Platelets (Bld) [#/Vol] 278 10*3/uL Normal 140-440 [facility] Comment on above: Performed By: #### H EMOG, MG3, FIBGN, CMP3, PT/AP #### [address] RBC (Bld) [#/Vol] 5.02 10*6/uL Normal 3.80-5.20 [facility] Comment on above: Performed By: #### H EMOG, MG3, FIBGN, CMP3, PT/AP #### [facility] [address] [place] [address] WBC (Bld) [#/Vol] 6.5 10*3/uL Normal 3.6-10.7 [facility] Comment on above: Performed By: #### H EMOG, MG3, FIBGN, CMP3, PT/AP #### [facility] [address] [place] [address] Progress Noteon 10-09-2020 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 Authentication Interface Message Text Visit Subjective: Cynthia [...] for fibroid evaluation 3. Follow up with [employer] REPAIR PERSON as scheduled for routine care The total time spent on this patient encounter today was 20 minutes. Normal [facility] US Pelvis Completeon MF US Pelvis Complete Patient Name: CYNTHIA MOLINA Maternal Medicine ACCESSION EXAM DATE/TIME PROCEDURE ORDERING PROVIDER [id number] 10/05/2020 13:23 EST MF US Transvaginal MD LYDIA, LOVELY Peña Reason For Exam ([facility] US Transvaginal) fibroid Report Gynecological Report (Signed Final 10/08/2020 03:31 pm) Patient Info ID #: [id number] : [birth year] (39 yrs) Name: CYNTHIA MOLINA Visit Date: 10/05/2020 01:24 pm Performed By Performed By: Carlos A Blackburn RDMS Referred By: LOVELY FREEMAN MD Attending: Lucian Kay MD Service(s) Provided Lead Ruby On Rails Developer Transvaginal [id number] Lead Ruby On Rails Developer Sonogram [id number] Indications Fibroids Technique/Scan Quality - Technique: Transvaginal [...] Medicine Report 5. Clinical correlation is recommended. Lucian Kay MD Electronically Signed Final Report 10/08/2020 03:31 pm Final Dictated: 10/05/2020 1:24 pm Dictating Physician: MD KAY GREGORY D Signed Date and Time: 10/08/2020 3:31 pm Signed by: MD KAY GREGORY D Ultrasound ACCESSION EXAM DATE/TIME PROCEDURE ORDERING PROVIDER [id number] 10/05/2020 13:[address] [facility] US Transvaginal MD LYDIA, LOVELY Peña Reason For Exam ([facility] US Transvaginal) fibroid Report Gynecological Report (Signed Final 10/08/2020 03:31 pm) Patient Info ID #: [id number] : [birth year] (39 yrs) Name: CYNTHIA MOLINA Visit Date: 10/05/2020 01:24 pm Performed By Performed By: Carlos A Blackburn RDMS Referred By: LOVELY FREEMAN MD Attending: Lucian Kay MD Service(s) Provided Lead Ruby On Rails Developer Transvaginal 84770 Lead Ruby On Rails Developer Sonogram [id number] Indications Fibroids Technique/Scan Quality - Technique: Transvaginal [...] O-RADS 1 5. Clinical correlation is recommended. Lucian Kay MD Electronically Signed Final Report 10/08/2020 03:31 pm Final Dictated: 10/05/2020 1:24 pm Dictating Physician: MD KAY GREGORY D Signed Date and Time: 10/08/2020 3:31 pm Signed by: MD KAY GREGORY D [facility] US Transvaginalon [address] [facility] US Transvaginal Patient Name: CYNTHIA MOLINA Maternal Medicine ACCESSION EXAM DATE/TIME PROCEDURE ORDERING PROVIDER [id number] 10/05/2020 13:[address] [facility] US Transvaginal MD LYDIA, LOVELY Peña Reason For Exam ([facility] US Transvaginal) fibroid Report Gynecological Report (Signed Final 10/08/2020 03:31 pm) Patient Info ID #: [id number] : [birth year] (39 yrs) Name: CYNTHIA MOLIAN Visit Date: 10/05/2020 01:24 pm Performed By Performed By: Carlos A Blackburn RDMS Referred By: LOVELY FREEMAN MD Attending: Lucian Kay MD Service(s) Provided Lead Ruby On Rails Developer Transvaginal 75579 Lead Ruby On Rails Developer Sonogram [id number] Indications Fibroids Technique/Scan Quality - Technique: Transvaginal [...] Medicine Report 5. Clinical correlation is recommended. Lucian Kay MD Electronically Signed Final Report 10/08/2020 03:31 pm Final Dictated: 10/05/2020 1:24 pm Dictating Physician: MD KAY GREGORY D Signed Date and Time: 10/08/2020 3:31 pm Signed by: MD KAY GREGORY D Ultrasound ACCESSION EXAM DATE/TIME PROCEDURE ORDERING PROVIDER [id number] 10/05/2020 13:[address] [facility] US Transvaginal MD LYDIA, LOVELY Peña Reason For Exam (M US Transvaginal) fibroid Report Gynecological Report (Signed Final 10/08/2020 03:31 pm) Patient Info ID #: [id number] : [birth year] (39 yrs) Name: CYNTHIA MOLINA Visit Date: 10/05/2020 01:24 pm Performed By Performed By: Carlos A Blackburn Referred By: LOVELY FREEMAN MD Attending: Lucian Kay MD Service(s) Provided Lead Ruby On Rails Developer Transvaginal 81271 Lead Ruby On Rails Developer Sonogram [id number] Indications Fibroids Technique/Scan Quality - Technique: Transvaginal [...] O-RADS 1 5. Clinical correlation is recommended. 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 Normal [facility] Hematologyon 08-14-2020 ABO and Rh group Nom (Bld) [address] [place], [place] ABO and Rh group Nom (Bld) [address] [place], [place] Leukodepleted Red Cellson Leukodepleted Red Cells Leukodepleted Red Cells: [id number] released 08/14/20 05:32 BRS Unit Blood Type: B Unit Blood Rh: POS Blood Product Code: AS1 Unit Number: [id number] Unit Status: released Barcoded Unit Number: =[id number] Barcoded Product Code: = Barcoded ABO/Rh: =%7300 Unit Expiration: Leukodepleted Red Cells: [id number] released 08/14/20 05:32 BRS Unit Blood Type: B Unit Blood Rh: POS Blood Product Code: AS1 Unit Number: [id number] Unit Status: released Barcoded Unit Number: =[id number] Barcoded Product Code: = Barcoded ABO/Rh: =%7300 Unit Expiration: Normal [facility] Comment on above: Performed By: #### H EMOG, MG3, FIBGN, CMP3, PT/AP #### [facility] [address] [place] [address] Metabolic Panelon 08-14-2020 Sodium [Moles/Vol] released [place] Sodium [Moles/Vol] [id number] mmol/L [place] Sodium [Moles/Vol] L2146Q56 [place] Otheron 08-14-2020 [place] PREPARE PLATELETS, 1 Product on 08-14-2020 ABO and Rh group Nom (Bld) [address] [place], [place] Blood product unit ID (Dose) [#] [id number] [place] Blood product unit ID (Dose) [#] [id number] [place] Blood product unit ID (Dose) [#] [id number] [place] Sodium [Moles/Vol] [id number] [place] Sodium [Moles/Vol] B2035M41 [place] Sodium [Moles/Vol] [id number] mmol/L [place] Sodium [Moles/Vol] 788556039961 mmol/L [place] Sodium [Moles/Vol] [id number] [place] Sodium [Moles/Vol] 248440563798 mmol/L [place] PREPARE RBC (CROSSMATCH), 2 Unitson 08-14-2020 Blood product unit ID (Dose) [#] [id number] [place] Blood product unit ID (Dose) [#] [id number] [place] Pheresis Leuko Reducedon Pheresis Leuko Reduced PATHOGEN REDUCED LR PPHR: [id number] released 08/13/20 00:43 BRS Unit Blood Type: O Unit Blood Rh: POS Blood Product Code: 3PR Unit Number: [id number] Unit Status: released Barcoded Unit Number: =[id number] Barcoded Product Code: = Barcoded ABO/Rh: =%5100 Unit Expiration: Pheresis Leuko Reduced: [id number] released 08/14/20 01:06 BRS Unit Blood Type: O Unit Blood Rh: POS Blood Product Code: PL6 Unit Number: [id number] Unit Status: released Barcoded Unit Number: =[id number] Barcoded Product Code: = Barcoded ABO/Rh: =%5100 Unit Expiration: [id number] Pheresis Leuko Reduced: [id number] released 08/14/20 05:32 BRS Unit Blood Type: A Unit Blood Rh: POS Blood Product Code: PL5 Unit Number: [id number] Unit Status: released Barcoded Unit Number: =[id number] Barcoded Product Code: = Barcoded ABO/Rh: =%6200 Unit Expiration: Normal [facility] Comment on above: Performed By: #### H EMOG, MG3, FIBGN, CMP3, PT/AP #### [facility] [employer] [address] [address] CBCon 08-13-2020 Erythrocyte distribution width (RBC) [Ratio] 14.8 % High 11.5 - 14.5 % [place] Hematocrit (Bld) [Volume fraction] 32.0 % Low 35 - 47 % [place] Hemoglobin (Bld) [Mass/Vol] 10.7 g/dL Low 11.7 - 16 g/dL [place] Interpretation and review of laboratory results Abnormal [place] MCH (RBC) [Entitic mass] 29.9 pg 26 - 34 pg [place] MCHC (RBC) [Mass/Vol] 33.5 % 32 - 36 % [place] MCV (RBC) [Entitic vol] 89.1 fL 79 - 98 fL [place] Platelet mean volume (Bld) [Entitic vol] 7.2 fL Low 7.4 - 10.4 fL [place] Platelets (Bld) [#/Vol] 262 10*3/uL 140 - 440 10*3/uL [place] RBC (Bld) [#/Vol] 3.59 10*6/uL Low 3.8 - 5.2 10*6/uL [place] WBC (Bld) [#/Vol] 12.0 10*3/uL High 3.6 - 10.7 10*3/uL [place] Test Performed by [facility] [employer] [facility], [address] [place] [address] [place], [place] Comp Metabolic Panelon 08-13 ALP [Catalytic activity/Vol] 90 U/L Normal 38-126 [facility] Comment on above: Performed By: #### H EMOG, MG3, FIBGN, CMP3, PT/AP #### [address] [address] [address] [place], [place] ALT [Catalytic activity/Vol] 22 U/L Normal 0-34 [facility] Comment on above: Result Comment: The ALT test is performed by an updated assay method. Please note that the reference intervals have been changed and are now sex specific. Performed By: #### H EMOG, MG3, FIBGN, CMP3, PT/AP #### [address] [address] [address] [place], [place] Anion gap [Moles/Vol] 5 Normal [facility] Comment on above: Performed By: #### H EMOG, MG3, FIBGN, CMP3, PT/AP #### [address] [address] [address] [place], [place] AST [Catalytic activity/Vol] 39 U/L Normal 15-46 [facility] Comment on above: Performed By: #### H EMOG, MG3, FIBGN, CMP3, PT/AP #### [address] [address] [address] [place], [place] Bilirubin [Mass/Vol] 0.3 mg/dL Normal 0.2-1.3 [facility] Comment on above: Performed By: #### H EMOG, MG3, FIBGN, CMP3, PT/AP #### [address] [address] [address] [place], [place] Calcium [Mass/Vol] 7.2 mg/dL Low 8.4-10.4 [facility] Comment on above: Performed By: #### H EMOG, MG3, FIBGN, CMP3, PT/AP #### [address] [address] [address] [place], [place] CO2 [Moles/Vol] 25 mmol/L Normal 22-30 [facility] Comment on above: Performed By: #### H EMOG, MG3, FIBGN, CMP3, PT/AP #### [address] [address] [place], [place] Glucose [Mass/Vol] 125 mg/dL High 70-100 [facility] Comment on above: Performed By: #### H EMOG, MG3, FIBGN, CMP3, PT/AP #### [facility] [address] [place], [place] Protein [Mass/Vol] 6.1 g/dL Low 6.3-8.2 [facility] Comment on above: Performed By: #### H EMOG, MG3, FIBGN, CMP3, PT/AP #### [facility] [address] [place], [place] Urea nitrogen [Mass/Vol] 15 mg/dL Normal 7-20 [facility] Comment on above: Performed By: #### H EMOG, MG3, FIBGN, CMP3, PT/AP #### [facility] [address] [place], [place] Creatinine [Mass/Vol] 0.65 mg/dL Normal 0.52-1.25 [facility] Comment on above: Performed By: #### H EMOG, MG3, FIBGN, CMP3, PT/AP #### [facility] [address] [place], [place] GFR/1.73 sq M predicted among blacks MDRD (S/P/Bld) [Vol rate/Area] mL/min/{1.73_m2} Normal >60 [facility] Comment on above: Performed By: #### H EMOG, MG3, FIBGN, CMP3, PT/AP #### [facility] [address] [place], [place] GFR/1.73 sq M predicted among non-blacks MDRD (S/P/Bld) [Vol rate/Area] mL/min/{1.73_m2} Normal >60 [facility] Comment on above: Result Comment: KDIG O [...] H EMOG, MG3, FIBGN, CMP3, PT/AP #### [address] [address] [place], [place] Albumin [Mass/Vol] 2.9 g/dL Low 3.5-5.0 [facility] Comment on above: Performed By: #### H EMOG, MG3, FIBGN, CMP3, PT/AP #### [address] [address] [place], [place] Potassium [Moles/Vol] 4.4 mmol/L Normal 3.5-5.1 [facility] Comment on above: Performed By: #### H EMOG, MG3, FIBGN, CMP3, PT/AP #### [address] [address] [place], [place] Sodium [Moles/Vol] 132 mmol/L Low 135-145 [facility] Comment on above: Performed By: #### H EMOG, MG3, FIBGN, CMP3, PT/AP #### [address] [address] [place], [place] Chloride [Moles/Vol] 102 mmol/L Normal 98-107 [facility] Comment on above: Performed By: #### H EMOG, MG3, FIBGN, CMP3, PT/AP #### [address] [address] [address] [place] Potassium [Moles/Vol] 4.2 mmol/L Normal 3.5-5.1 [facility] Comment on above: Performed By: #### F IBGN, CMP3, HEMOG, PT/AP #### [address] [address] [address] [place], [place] ALT [Catalytic activity/Vol] 23 U/L Normal 0-34 [facility] Comment on above: Result Comment: The ALT test is performed by an updated assay method. Please note that the reference intervals have been changed and are now sex specific. Performed By: #### F IBGN, CMP3, HEMOG, PT/AP #### [address] [address] [address] [place], [place] Calcium [Mass/Vol] 6.8 mg/dL Low 8.4-10.4 [facility] Comment on above: Performed By: #### F IBGN, CMP3, HEMOG, PT/AP #### [address] [address] [place] Glucose [Mass/Vol] 150 mg/dL High 70-100 [facility] Comment on above: Performed By: #### F IBGN, CMP3, HEMOG, PT/AP #### [address] [address] [place], [place] Urea nitrogen [Mass/Vol] 16 mg/dL Normal 7-20 [facility] Comment on above: Performed By: #### F IBGN, CMP3, HEMOG, PT/AP #### [address] [address] [address] [place] ALP [Catalytic activity/Vol] 73 U/L Normal 38-126 [facility] Comment on above: Performed By: #### F IBGN, CMP3, HEMOG, PT/AP #### [address] [address] [place], [place] Anion gap [Moles/Vol] 6 Normal [facility] Comment on above: Performed By: #### F IBGN, CMP3, HEMOG, PT/AP #### [address] [address] [address] [place], [place] AST [Catalytic activity/Vol] 34 U/L Normal 15-46 [facility] Comment on above: Performed By: #### F IBGN, CMP3, HEMOG, PT/AP #### [address] [address] [address] Bilirubin [Mass/Vol] 0.3 mg/dL Normal 0.2-1.3 [facility] Comment on above: Performed By: #### F IBGN, CMP3, HEMOG, PT/AP #### [address] CO2 [Moles/Vol] 22 mmol/L Normal 22-30 [facility] Comment on above: Performed By: #### F IBGN CMP3, HEMOG, PT/AP #### [address] Creatinine [Mass/Vol] 0.56 mg/dL Normal 0.52-1.25 [facility] Comment on above: Performed By: #### F IBGN, CMP3, HEMOG, PT/AP #### [address] GFR/1.73 sq M predicted among blacks MDRD (S/P/Bld) [Vol rate/Area] mL/min/{1.73_m2} Normal >60 [facility] Comment on above: Performed By: #### F IBGN, CMP3, HEMOG, PT/AP #### [address] GFR/1.73 sq M predicted among non-blacks MDRD (S/P/Bld) [Vol rate/Area] mL/min/{1.73_m2} Normal >60 [facility] Comment on above: Result Comment: KDIG O [...] #### F IBGN, CMP3, HEMOG, PT/AP #### [address] Protein [Mass/Vol] 5.7 g/dL Low 6.3-8.2 [facility] Comment on above: Performed By: #### F IBGN, CMP3, HEMOG, PT/AP #### [facility] [address] [place], [place] Sodium [Moles/Vol] 132 mmol/L Low 135-145 [facility] Comment on above: Performed By: #### F IBGN, CMP3, HEMOG, PT/AP #### [facility] [address] [place], [place] Albumin [Mass/Vol] 2.7 g/dL Low 3.5-5.0 [facility] Comment on above: Performed By: #### F IBGN, CMP3, HEMOG, PT/AP #### [facility] [address] [place], [place] Chloride [Moles/Vol] 105 mmol/L Normal 98-107 [facility] Comment on above: Performed By: #### F IBGN, CMP3, HEMOG, PT/AP #### [facility] [address] [place], [place] Comprehensive Metabolic Pane iman 08-13-2020 Albumin [Mass/Vol] 2.9 g/dL Low 3.5 - 5 g/dL [place] ALP [Catalytic activity/Vol] 90 U/L 38 - 126 U/L [place] ALT [Catalytic activity/Vol] 22 U/L 0 - 34 U/L [place] Comment on above: The ALT test is perf ormed by an updated assay method. Please note that the reference intervals have been changed and are now sex specific. Anion gap [Moles/Vol] 5 mmol/L [place] AST [Catalytic activity/Vol] 39 U/L 15 - 46 U/L [place] Bilirubin Ql (U) 0.3 mg/dL 0.2 - 1.3 mg/dL [place] Calcium [Mass/Vol] 7.2 mg/dL Low 8.4 - 10. 4 mg/dL [place] Chloride [Moles/Vol] 102 mmol/L 98 - 10 7 mmol/L [place] CO2 [Moles/Vol] 25 mmol/L 22 - 30 mmol/L [place] Creatinine [Mass/Vol] 0.65 mg/dL 0.52 - 1.25 mg/dL [place] EGFR IF NonAfrican [place] >90.0 >60 mL/min [place] Comment on above: KDIGO guidelines pro [...] MDRD (S/P/Bld) [Vol rate/Area] mL/min/{1.73_m2} >60 mL/min [place] Glucose [Mass/Vol] 125 mg/dL High 70 - 100 mg/dL [place], [place] Interpretation and review of laboratory results Abnormal [place] Potassium [Moles/Vol] 4.4 mmol/L 3.5 - 5.1 mmol/L [place] Protein [Mass/Vol] 6.1 g/dL Low 6.3 - 8.2 g/dL [place] Sodium [Moles/Vol] 132 mmol/L Low 135 - 145 mmol/L [place], [place] Urea nitrogen [Mass/Vol] 15 mg/dL 7 - 20 mg/dL [place] [facility], [address] [place] [address] [place] Fibrinogenon 08-13-2020 Fibrinogen 410 mg/dL High 200-400 [facility] Comment on above: Performed By: #### F IBGN, CMP3, HEMOG, PT/AP #### [address] Group B Strep Screen PCRon 1 10-13-2019 Group B Strep Screen PCR Group [...] Methodology - Real Time PCR (Cepheid) Normal [facility] Comment on above: Order Comment: Speci men Source Comment:Vaginal-Perirectal Performed By: #### H EMOG, MG3, FIBGN, CMP3, PT/AP #### [address] Group B Strep, PCRon 020 Group B Strep Screen PCR NEGATIVE Expected Result: Negative CDC guidelines for prevention of Group B Strep disease recommends collection of both vaginal and rectal specimens for optimal recovery of GBS. Methodology - Real Time PCR (Cepheid) [place], [place] Test Performed by [facility], [address] [place] [address] Specimen Source Comment:Vaginal-Perir ectal [place], [place] Hemogramon 08-13-2020 Erythrocyte distribution width (RBC) [Ratio] 14.8 % High 11.5-14.5 [facility] Comment on above: Performed By: #### H EMOG, MG3, FIBGN, CMP3, PT/AP #### [facility] [address] [place], [place] Hematocrit (Bld) [Volume fraction] 32.0 % Low 35.0-47.0 [facility] Comment on above: Performed By: #### H EMOG, MG3, FIBGN, CMP3, PT/AP #### [address] [address] [place] Hemoglobin (Bld) [Mass/Vol] 10.7 g/dL Low 11.7-16.0 [facility] Comment on above: Performed By: #### H EMOG, MG3, FIBGN, CMP3, PT/AP #### [address] [address] [place] MCH (RBC) [Entitic mass] 29.9 pg Normal 26.0-34.0 [facility] Comment on above: Performed By: #### H EMOG, MG3, FIBGN, CMP3, PT/AP #### [address] [address] [place] MCHC (RBC) [Mass/Vol] 33.5 % Normal 32.0-36.0 [facility] Comment on above: Performed By: #### H EMOG, MG3, FIBGN, CMP3, PT/AP #### [address] MCV (RBC) [Entitic vol] 89.1 fL Normal 79.0-98.0 [facility] Comment on above: Performed By: #### H EMOG, MG3, FIBGN, CMP3, PT/AP #### [address] Platelet mean volume (Bld) [Entitic vol] 7.2 fL Low 7.4-10.4 [facility] Comment on above: Performed By: #### H EMOG, MG3, FIBGN, CMP3, PT/AP #### [address] Platelets (Bld) [#/Vol] 262 10*3/uL Normal 140-440 [facility] Comment on above: Performed By: #### H EMOG, MG3, FIBGN, CMP3, PT/AP #### [address] RBC (Bld) [#/Vol] 3.59 10*6/uL Low 3.80-5.20 [facility] Comment on above: Performed By: #### H EMOG, MG3, FIBGN, CMP3, PT/AP #### [address] [address] [address] [place] WBC (Bld) [#/Vol] 12.0 10*3/uL High 3.6-10.7 [facility] Comment on above: Performed By: #### H EMOG, MG3, FIBGN, CMP3, PT/AP #### [address] [address] [place] Erythrocyte distribution width (RBC) [Ratio] 14.6 % High 11.5-14.5 [facility] Comment on above: Performed By: #### F IBGN, CMP3, HEMOG, PT/AP #### [address] [address] [place] Hematocrit (Bld) [Volume fraction] 32.6 % Low 35.0-47.0 [facility] Comment on above: Performed By: #### F IBGN, CMP3, HEMOG, PT/AP #### [address] [address] [place] Hemoglobin (Bld) [Mass/Vol] 11.0 g/dL Low 11.7-16.0 [facility] Comment on above: Performed By: #### F IBGN, CMP3, HEMOG, PT/AP #### [address] MCH (RBC) [Entitic mass] 29.5 pg Normal 26.0-34.0 [facility] Comment on above: Performed By: #### F IBGN, CMP3, HEMOG, PT/AP #### [address] [address] [place] MCHC (RBC) [Mass/Vol] 33.6 % Normal 32.0-36.0 [facility] Comment on above: Performed By: #### F IBGN, CMP3, HEMOG, PT/AP #### [address] MCV (RBC) [Entitic vol] 87.8 fL Normal 79.0-98.0 [facility] Comment on above: Performed By: #### F IBGN, CMP3, HEMOG, PT/AP #### [facility] [address] [place], [place] Platelet mean volume (Bld) [Entitic vol] 6.8 fL Low 7.4-10.4 [facility] Comment on above: Performed By: #### F IBGN, CMP3, HEMOG, PT/AP #### [address] [address] [address] [place] Platelets (Bld) [#/Vol] 281 10*3/uL Normal 140-440 [facility] Comment on above: Performed By: #### F IBGN, CMP3, HEMOG, PT/AP #### [address] [address] [address] [place] RBC (Bld) [#/Vol] 3.71 10*6/uL Low 3.80-5.20 [facility] Comment on above: Performed By: #### F IBGN, CMP3, HEMOG, PT/AP #### [address] [address] [address] [place] WBC (Bld) [#/Vol] 13.9 10*3/uL High 3.6-10.7 [facility] Comment on above: Performed By: #### F IBGN, CMP3, HEMOG, PT/AP #### [address] [address] [address] [place] PROTIME/INR & PTTon 08-13-20 20 aPTT Coag (Bld) [Time] 24.2 s 20 - 30.5 s [place] Comment on above: NOTE: The therapeuti c time for Heparin anticoagulation, based on Xa activity inhibition, is an APTT of 46-80 seconds. INR Coag (PPP) [Relative time] 0.9 {INR} [place], [place] Comment on above: Recommended Anticoag ulant [...] [Time] 9.5 s 9 - 12 s [place], [place] Comment on above: . Test Performed by [facility] [employer] [facility], [address] [place] [address] [place] Protime AND APTTon 0 aPTT Coag (Bld) [Time] 24.2 s Normal 20.0-30.[address] [facility] Comment on above: Result Comment: NOTE : The therapeutic time for Heparin anticoagulation, based on Xa activity inhibition, is an APTT of 46-80 seconds. Performed By: #### H EMOG, MG3, FIBGN, CMP3, PT/AP #### [address] INR Coag (PPP) [Relative time] 0.9 Normal 0.9-1.[address] [facility] [employer] [facility] Comment on above: [...] H EMOG, MG3, FIBGN, CMP3, PT/AP #### [facility] [employer] [facility] [address] [place], [place] PT Coag (PPP) [Time] 9.5 s Normal 9.0-12.0 [facility] [employer] [facility] Comment on above: Result Comment: . Performed By: #### H EMOG, MG3, FIBGN, CMP3, PT/AP #### [facility] [employer] [facility] [address] [place] [address] aPTT Coag (Bld) [Time] 25.0 s Normal 20.0-30.[address] [facility] [employer] [facility] Comment on above: Result Comment: NOTE : The therapeutic time for Heparin anticoagulation, based on Xa activity inhibition, is an APTT of 46-80 seconds. Performed By: #### F IBGN, CMP3, HEMOG, PT/AP #### [address] [address] [place], [place] INR Coag (PPP) [Relative time] 0.9 Normal 0.9-1.1 [facility] Comment on above: Result Comment: Lb mmended [...] #### F IBGN, CMP3, HEMOG, PT/AP #### [address] [address] [place], [place] PT Coag (PPP) [Time] 9.6 s Normal 9.0-12.0 [facility] Comment on above: Result Comment: . Performed By: #### F IBGN, CMP3, HEMOG, PT/AP #### [address] Add On Lab Teston 08-12-2020 Sodium [Moles/Vol] Rejected [place], [place] Comment on above: No specimen availabl e for addon. Test Performed by [facility] [employer] [address] [address] spoke to nurse Burt. 08/12/2020 08:18 [place] Add on test from HISon 08-12 Add on test from HIS Rejected Normal [facility] Comment on above: Order Comment: spoke to nurse Burt. 08/12/2020 08:18 Result Comment: No s pecimen available for addon. Performed By: #### H EMOG, MG3, FIBGN, CMP3, PT/AP #### [address] CALCIUM, IONIZEDon 0 Interpretation and review of laboratory results Abnormal [place], [place] Ionized Ca 3.50 mg/dL Low 4.3 - 5.2 mg/dL [place] pH (Bld) 7.45 [pH] [place] Test Performed by [facility], [address] [place] [address] [place], [place] CBCon 08-12-2020 Erythrocyte distribution width (RBC) [Ratio] 14.6 % High 11.5 - 14.5 % [place] Hematocrit (Bld) [Volume fraction] 32.6 % Low 35 - 47 % [place] Hemoglobin (Bld) [Mass/Vol] 11.0 g/dL Low 11.7 - 16 g/dL [place] Interpretation and review of laboratory results Abnormal [place] MCH (RBC) [Entitic mass] 29.5 pg 26 - 34 pg [place] MCHC (RBC) [Mass/Vol] 33.6 % 32 - 36 % [place] MCV (RBC) [Entitic vol] 87.8 fL 79 - 98 fL [place] Platelet mean volume (Bld) [Entitic vol] 6.8 fL Low 7.4 - 10.4 fL [place] Platelets (Bld) [#/Vol] 281 10*3/uL 140 - 440 10*3/uL [place] RBC (Bld) [#/Vol] 3.71 10*6/uL Low 3.8 - 5.2 10*6/uL [place] WBC (Bld) [#/Vol] 13.9 10*3/uL High 3.6 - 10.7 10*3/uL [place] Test Performed by [facility], [address] [place] [address] [place] Erythrocyte distribution width (RBC) [Ratio] 13.9 % 11.5 - 14.5 % [place] Hematocrit (Bld) [Volume fraction] 26.5 % Low 35 - 47 % [place] Hemoglobin (Bld) [Mass/Vol] 8.9 g/dL Low 11.7 - 16 g/dL [place] Interpretation and review of laboratory results Abnormal [place] MCH (RBC) [Entitic mass] 29.8 pg 26 - 34 pg [place] MCHC (RBC) [Mass/Vol] 33.7 % 32 - 36 % [place] MCV (RBC) [Entitic vol] 88.5 fL 79 - 98 fL [place] Platelet mean volume (Bld) [Entitic vol] 7.0 fL Low 7.4 - 10.4 fL [place] Platelets (Bld) [#/Vol] 306 10*3/uL 140 - 440 10*3/uL [place] RBC (Bld) [#/Vol] 2.99 10*6/uL Low 3.8 - 5.2 10*6/uL [place] WBC (Bld) [#/Vol] 11.2 10*3/uL High 3.6 - 10.7 10*3/uL [place] Test Performed by [facility], [address] [place], [place] [id number] [place] [address] CULTURE URINEon 08-12-2020 CULTURE URINE CULTURE URINE --> Status: F Normal urogenital william present. Normal [facility] Comment on above: Order Comment: Speci men Source Comment:Urine, clean catch Performed By: #### H EMOG, MG3, FIBGN, CMP3, PT/AP #### [facility] [address] [place], [place] Calcium,Ionizedon 08-12-2020 Ionized Ca,Measured 3.50 mg/dL Low 4.30-5.20 [facility] Comment on above: Performed By: #### I CA #### [facility] [address] [place], [place] pH, Ionized Calcium 7.45 Normal 7.31-7.46 [facility] Comment on above: Performed By: #### I CA #### [facility] [address] [place], [place] Comp Metabolic Panelon 08-12 ALT [Catalytic activity/Vol] 22 U/L Normal 0-34 [facility] Comment on above: Result Comment: The ALT test is performed by an updated assay method. Please note that the reference intervals have been changed and are now sex specific. Performed By: #### H EMOG, MG3, FIBGN, CMP3, PT/AP #### [facility] [address] [place], [place] Calcium [Mass/Vol] 6.8 mg/dL Low 8.4-10.4 [facility] Comment on above: Performed By: #### H EMOG, MG3, FIBGN, CMP3, PT/AP #### [facility] [address] [place], [place] Glucose [Mass/Vol] 124 mg/dL High 70-100 [facility] Comment on above: Performed By: #### H EMOG, MG3, FIBGN, CMP3, PT/AP #### [address] [address] [address] [place], [place] ALP [Catalytic activity/Vol] 93 U/L Normal 38-126 [facility] Comment on above: Performed By: #### H EMOG, MG3, FIBGN, CMP3, PT/AP #### [facility] [address] [place], [place] Anion gap [Moles/Vol] 5 Normal [facility] Comment on above: Performed By: #### H EMOG, MG3, FIBGN, CMP3, PT/AP #### [facility] [address] [place], [place] AST [Catalytic activity/Vol] 29 U/L Normal 15-46 [facility] Comment on above: Performed By: #### H EMOG, MG3, FIBGN, CMP3, PT/AP #### [facility] [address] [place], [place] Bilirubin [Mass/Vol] 0.3 mg/dL Normal 0.2-1.3 [facility] Comment on above: Performed By: #### H EMOG, MG3, FIBGN, CMP3, PT/AP #### [facility] [address] [place], [place] CO2 [Moles/Vol] 24 mmol/L Normal 22-30 [facility] Comment on above: Performed By: #### H EMOG, MG3, FIBGN, CMP3, PT/AP #### [address] Creatinine [Mass/Vol] 0.61 mg/dL Normal 0.52-1.25 [facility] Comment on above: Performed By: #### H EMOG, MG3, FIBGN, CMP3, PT/AP #### [address] GFR/1.73 sq M predicted among blacks MDRD (S/P/Bld) [Vol rate/Area] mL/min/{1.73_m2} Normal >60 [facility] Comment on above: Performed By: #### H EMOG, MG3, FIBGN, CMP3, PT/AP #### [address] GFR/1.73 sq M predicted among non-blacks MDRD (S/P/Bld) [Vol rate/Area] mL/min/{1.73_m2} Normal >60 [facility] Comment on above: Result Comment: KDIG O [...] H EMOG, MG3, FIBGN, CMP3, PT/AP #### [address] Protein [Mass/Vol] 6.2 g/dL Low 6.3-8.2 [facility] Comment on above: Performed By: #### H EMOG, MG3, FIBGN, CMP3, PT/AP #### [address] [address] [place] [place], [place] Urea nitrogen [Mass/Vol] 12 mg/dL Normal 7-20 [facility] Comment on above: Performed By: #### H EMOG, MG3, FIBGN, CMP3, PT/AP #### [address] [address] [place] Chloride [Moles/Vol] 101 mmol/L Normal 98-107 [facility] Comment on above: Performed By: #### H EMOG, MG3, FIBGN, CMP3, PT/AP #### [address] [address] [address] [place] Potassium [Moles/Vol] 4.2 mmol/L Normal 3.5-5.1 [facility] Comment on above: Performed By: #### H EMOG, MG3, FIBGN, CMP3, PT/AP #### [address] [address] [place] [place] Sodium [Moles/Vol] 130 mmol/L Low 135-145 [facility] Comment on above: Performed By: #### H EMOG, MG3, FIBGN, CMP3, PT/AP #### [address] [address] [address] [place] Albumin [Mass/Vol] 3.0 g/dL Low 3.5-5.0 [facility] Comment on above: Performed By: #### H EMOG, MG3, FIBGN, CMP3, PT/AP #### [address] [address] [address] [place], [place] Comprehensive Metabolic Pane iman 08-12-2020 Albumin [Mass/Vol] 2.7 g/dL Low 3.5 - 5 g/dL [facility], [place] ALP [Catalytic activity/Vol] 73 U/L 38 - 126 U/L [facility], [place] ALT [Catalytic activity/Vol] 23 U/L 0 - 34 U/L [place] Comment on above: The ALT test is perf ormed by an updated assay method. Please note that the reference intervals have been changed and are now sex specific. Anion gap [Moles/Vol] 6 mmol/L [place] AST [Catalytic activity/Vol] 34 U/L 15 - 46 U/L [place] Bilirubin Ql (U) 0.3 mg/dL 0.2 - 1.3 mg/dL [place] Calcium [Mass/Vol] 6.8 mg/dL Low 8.4 - 10. 4 mg/dL [place] Chloride [Moles/Vol] 105 mmol/L 98 - 10 7 mmol/L [place] CO2 [Moles/Vol] 22 mmol/L 22 - 30 mmol/L [place] Creatinine [Mass/Vol] 0.56 mg/dL 0.52 - 1.25 mg/dL [place] EGFR IF NonAfrican [place] >90.0 >60 mL/min [place] Comment on above: KDIGO guidelines pro [...] MDRD (S/P/Bld) [Vol rate/Area] mL/min/{1.73_m2} >60 mL/min [place], [place] Glucose [Mass/Vol] 150 mg/dL High 70 - 100 mg/dL [place], [place] Interpretation and review of laboratory results Abnormal [place], [place] Potassium [Moles/Vol] 4.2 mmol/L 3.5 - 5.1 mmol/L [place] Protein [Mass/Vol] 5.7 g/dL Low 6.3 - 8.2 g/dL [place] Sodium [Moles/Vol] 132 mmol/L Low 135 - 145 mmol/L [place], [place] Urea nitrogen [Mass/Vol] 16 mg/dL 7 - 20 mg/dL [place] Test Performed by [facility], [address] [place] [address] [place] Albumin [Mass/Vol] 3.0 g/dL Low 3.5 - 5 g/dL [place] ALP [Catalytic activity/Vol] 93 U/L 38 - 126 U/L [place] ALT [Catalytic activity/Vol] 22 U/L 0 - 34 U/L [place] Comment on above: The ALT test is perf ormed by an updated assay method. Please note that the reference intervals have been changed and are now sex specific. Anion gap [Moles/Vol] 5 mmol/L [place], [place] AST [Catalytic activity/Vol] 29 U/L 15 - 46 U/L [place] Bilirubin Ql (U) 0.3 mg/dL 0.2 - 1.3 mg/dL [place] Calcium [Mass/Vol] 6.8 mg/dL Low 8.4 - 10. 4 mg/dL [place] Chloride [Moles/Vol] 101 mmol/L 98 - 10 7 mmol/L [place] CO2 [Moles/Vol] 24 mmol/L 22 - 30 mmol/L [place] Creatinine [Mass/Vol] 0.61 mg/dL 0.52 - 1.25 mg/dL [place] EGFR IF NonAfrican [place] >90.0 >60 mL/min [place] Comment on above: KDIGO guidelines pro [...] MDRD (S/P/Bld) [Vol rate/Area] mL/min/{1.73_m2} >60 mL/min [place] Glucose [Mass/Vol] 124 mg/dL High 70 - 100 mg/dL [place] Potassium [Moles/Vol] 4.2 mmol/L 3.5 - 5.1 mmol/L [place] Protein [Mass/Vol] 6.2 g/dL Low 6.3 - 8.2 g/dL [place] Sodium [Moles/Vol] 130 mmol/L Low 135 - 145 mmol/L [place], [place] Urea nitrogen [Mass/Vol] 12 mg/dL 7 - 20 mg/dL [place] Culture, Urineon 08-12-2020 Bacteria identified Cx Nom (U) Normal urogenital william present. [place] Test Performed by [facility], [address] [place] [address] Specimen Source Comment:Urine, clean catch [place] Fibrinogenon 08-12-2020 Fibrinogen 410 mg/dL High 200 - 400 mg/dL [place] Interpretation and review of laboratory results Abnormal [place] Fibrinogen 440 mg/dL High 200-400 [facility] Comment on above: Performed By: #### H EMOG, MG3, FIBGN, CMP3, PT/AP #### [address] [address] Fibrinogen 440 mg/dL High 200 - 400 mg/dL [place] Interpretation and review of laboratory results Abnormal [place] Fibrinogen 591 mg/dL High 200-400 [facility] Comment on above: Performed By: #### H EMOG, MG3, FIBGN, CMP3, PT/AP #### [address] [address] Fibrinogen 591 mg/dL High 200 - 400 mg/dL [place] Interpretation and review of laboratory results Abnormal [place] HEMOGLOBIN AND HEMATOCRIT, B LOODon 08-12-2020 Hematocrit (Bld) [Volume fraction] 28.2 % Low 35 - 47 % [place] Hemoglobin (Bld) [Mass/Vol] 9.6 g/dL Low 11.7 - 16 g/dL [place] Interpretation and review of laboratory results Abnormal [place] Test Performed by [address] [address] [place] Hematologyon 08-12-2020 ABO and Rh group Nom (Bld) 7300 [place], [place] ABO and Rh group Nom (Bld) 7300 [place] Hemoglobin AND Hematocriton 08-12-2020 Hematocrit (Bld) [Volume fraction] 28.2 % Low 35.0-47.0 [facility] Comment on above: Performed By: #### H EMOG, MG3, FIBGN, CMP3, PT/AP #### [address] Hemoglobin (Bld) [Mass/Vol] 9.6 g/dL Low 11.7-16.0 [facility] Comment on above: Performed By: #### H EMOG, MG3, FIBGN, CMP3, PT/AP #### [address] [address] Hemogramon 08-12-2020 Erythrocyte distribution width (RBC) [Ratio] 13.9 % Normal 11.5-14.5 [facility] Comment on above: Performed By: #### H EMOG, MG3, FIBGN, CMP3, PT/AP #### [address] [place], [place] Hematocrit (Bld) [Volume fraction] 26.5 % Low 35.0-47.0 [facility] Comment on above: Performed By: #### H EMOG, MG3, FIBGN, CMP3, PT/AP #### [address] [address] [place] Hemoglobin (Bld) [Mass/Vol] 8.9 g/dL Low 11.7-16.0 [facility] Comment on above: Performed By: #### H EMOG, MG3, FIBGN, CMP3, PT/AP #### [address] [address] [place], [place] MCH (RBC) [Entitic mass] 29.8 pg Normal 26.0-34.0 [facility] Comment on above: Performed By: #### H EMOG, MG3, FIBGN, CMP3, PT/AP #### [address] [address] [place] MCHC (RBC) [Mass/Vol] 33.7 % Normal 32.0-36.0 [facility] Comment on above: Performed By: #### H EMOG, MG3, FIBGN, CMP3, PT/AP #### [address] [address] [address] [place] MCV (RBC) [Entitic vol] 88.5 fL Normal 79.0-98.0 [facility] Comment on above: Performed By: #### H EMOG, MG3, FIBGN, CMP3, PT/AP #### [address] [address] [place] Platelet mean volume (Bld) [Entitic vol] 7.0 fL Low 7.4-10.4 [facility] Comment on above: Performed By: #### H EMOG, MG3, FIBGN, CMP3, PT/AP #### [address] Platelets (Bld) [#/Vol] 306 10*3/uL Normal 140-440 [facility] Comment on above: Performed By: #### H EMOG, MG3, FIBGN, CMP3, PT/AP #### [facility] [address] [place], [place] RBC (Bld) [#/Vol] 2.99 10*6/uL Low 3.80-5.20 [facility] Comment on above: Performed By: #### H EMOG, MG3, FIBGN, CMP3, PT/AP #### [facility] [address] [place], [place] WBC (Bld) [#/Vol] 11.2 10*3/uL High 3.6-10.7 [facility] Comment on above: Performed By: #### H EMOG, MG3, FIBGN, CMP3, PT/AP #### [facility] [address] [place], [place] Leukodepleted Red Cellson Leukodepleted Red Cells Leukodepleted Red Cells: [id number] transfused 08/12/20 19:59 MSS1 Unit Blood Type: B Unit Blood Rh: POS Blood Product Code: AS1 Unit Number: [id number] Unit Status: transfused Barcoded Unit Number: =[id number] Barcoded Product Code: = Barcoded ABO/Rh: =%7300 Unit Expiration: Unit Volume Transfused: 300 Unit Transfusion Start Date/Time: Leukodepleted Red Cells: [id number] transfused 08/12/20 19:00 MSS1 Unit Blood Type: B Unit Blood Rh: POS Blood Product Code: AS1 Unit Number: [id number] Unit Status: transfused Barcoded Unit Number: =[id number] Barcoded Product Code: = Barcoded ABO/Rh: =%7300 Unit Expiration: Unit Volume Transfused: 300 Unit Transfusion Start Date/Time: Normal [facility] Comment on above: Performed By: #### H EMOG, MG3, FIBGN, CMP3, PT/AP #### [address] [address] [address] Leukodepleted Red Cells Leukodepleted Red Cells: [id number] transfused 08/12/20 13:54 MSS1 Unit Blood Type: B Unit Blood Rh: POS Blood Product Code: AS1 Unit Number: [id number] Unit Status: transfused Barcoded Unit Number: =[id number] Barcoded Product Code: = Barcoded ABO/Rh: =%7300 Unit Expiration: Unit Volume Transfused: 300 Unit Transfusion Start Date/Time: Leukodepleted Red Cells: [id number] transfused 08/12/20 09:29 MSS1 Unit Blood Type: B Unit Blood Rh: POS Blood Product Code: AS1 Unit Number: [id number] Unit Status: transfused Barcoded Unit Number: =[id number] Barcoded Product Code: = Barcoded ABO/Rh: =%7300 Unit Expiration: Unit Volume Transfused: 300 Unit Transfusion Start Date/Time: Normal [facility] Comment on above: Performed By: #### H EMOG, MG3, FIBGN, CMP3, PT/AP #### [address] [address] Magnesiumon 08-12-2020 Magnesium [Mass/Vol] 6.1 mg/dL Critically high 1.6-2.3 [facility] Comment on above: Performed By: #### H EMOG, MG3, FIBGN, CMP3, PT/AP #### [address] [address] Magnesium [Mass/Vol] 6.1 mg/dL Critically high 1.6 - 2.3 mg/dL [facility], [place] Metabolic Panelon 08-12-2020 Sodium [Moles/Vol] [id number] [facility], [place] Sodium [Moles/Vol] transfused [facility], [place] Sodium [Moles/Vol] [id number] mmol/L [facility], [place] Sodium [Moles/Vol] transfused [facility] Sodium [Moles/Vol] [id number] [facility], [place] Otheron 08-12-2020 Test Performed [address] [facility] [employer] [address] [address] [facility], [place] Test Performed by [address] [address] [place] Interpretation and review of laboratory results Abnormal [place] Test Performed by [address] [address] [place] Test Performed by [id number] [place] [address] PREPARE FRESH FROZEN PLASMA, 1 Unitson 08-12-2020 ABO and Rh group Nom (Bld) 7300 [place], [place] Blood product unit ID (Dose) [#] [id number] [place] Sodium [Moles/Vol] [id number] [place] Sodium [Moles/Vol] transfused [place] Sodium [Moles/Vol] [id number] mmol/L [place], [place] PREPARE RBC (CROSSMATCH), 2 Unitson 08-12-2020 Blood product unit ID (Dose) [#] [id number] [place] Blood product unit ID (Dose) [#] [id number] [place] Blood product unit ID (Dose) [#] [id number] [place] Blood product unit ID (Dose) [#] [id number] [place] Sodium [Moles/Vol] [id number] mmol/L [place] Sodium [Moles/Vol] [id number] mmol/L [place] PROTIME/INR & PTTon 08-12-20 20 aPTT Coag (Bld) [Time] 25 s 20 - 30.5 s [place] Comment on above: NOTE: The therapeuti c time for Heparin anticoagulation, based on Xa activity inhibition, is an APTT of 46-80 seconds. INR Coag (PPP) [Relative time] 0.9 {INR} [place] Comment on above: Recommended Anticoag ulant [...] [Time] 9.6 s 9 - 12 s [place] Comment on above: . aPTT Coag (Bld) [Time] 23.8 s 20 - 30.5 s [place] Comment on above: NOTE: The therapeuti c time for Heparin anticoagulation, based on Xa activity inhibition, is an APTT of 46-80 seconds. INR Coag (PPP) [Relative time] 0.9 {INR} [place] Comment on above: Recommended Anticoag ulant [...] [Time] 9.5 s 9 - 12 s [place] Comment on above: . aPTT Coag (Bld) [Time] 25.2 s 20 - 30.5 s [place] Comment on above: NOTE: The therapeuti c time for Heparin anticoagulation, based on Xa activity inhibition, is an APTT of 46-80 seconds. INR Coag (PPP) [Relative time] 0.9 {INR} [place] Comment on above: Recommended Anticoag ulant [...] [Time] 9.7 s 9 - 12 s [facility] [place] Comment on above: . Protime AND APTTon 0 aPTT Coag (Bld) [Time] 23.8 s Normal 20.0-30.5 [facility] Comment on above: Result Comment: NOTE : The therapeutic time for Heparin anticoagulation, based on Xa activity inhibition, is an APTT of 46-80 seconds. Performed By: #### H EMOG, MG3, FIBGN, CMP3, PT/AP #### [address] [address] [place] [address] INR Coag (PPP) [Relative time] 0.9 Normal 0.9-1.1 [facility] Comment on above: Result Comment: Lb mmended [...] H EMOG, MG3, FIBGN, CMP3, PT/AP #### [address] [address] [place] [address] PT Coag (PPP) [Time] 9.5 s Normal 9.0-12.0 [facility] [employer] [facility] Comment on above: Result Comment: . Performed By: #### H EMOG, MG3, FIBGN, CMP3, PT/AP #### [facility] [address] [place] [address] aPTT Coag (Bld) [Time] 25.2 s Normal 20.0-30.5 [facility] Comment on above: Result Comment: NOTE : The therapeutic time for Heparin anticoagulation, based on Xa activity inhibition, is an APTT of 46-80 seconds. Performed By: #### H EMOG, MG3, FIBGN, CMP3, PT/AP #### [facility] [address] [place], [place] INR Coag (PPP) [Relative time] 0.9 Normal 0.9-1.1 [facility] Comment on above: Result Comment: Lb mmended [...] H EMOG, MG3, FIBGN, CMP3, PT/AP #### [address] [address] [address] [place], [place] PT Coag (PPP) [Time] 9.7 s Normal 9.0-12.0 [facility] Comment on above: Result Comment: . Performed By: #### H EMOG, MG3, FIBGN, CMP3, PT/AP #### [address] [address] [place], [place] Single Donor Plasma (CP2D)on 08-12-2020 Single Donor Plasma (CP2D) Thawed Plasma - 5 Day: [id number] transfused 08/12/20 19:35 MSS1 Unit Blood Type: B Unit Blood Rh: POS Blood Product Code: 6T5 Unit Number: [id number] Unit Status: transfused Barcoded Unit Number: =[id number] Barcoded Product Code: = Barcoded ABO/Rh: =%7300 Unit Expiration: [id number] Unit Volume Transfused: 216 Unit Transfusion Start Date/Time: Normal [facility] Comment on above: Performed By: #### H EMOG, MG3, FIBGN, CMP3, PT/AP #### [facility] [address] [place], [place] C. Trachomatis / N. Gonorrho eae, DNA Probeon 08-11-2020 C. trachomatis DNA PADMINI+probe Ql (Genital specimen) NOT Detected Chlamydia trachomatis Nucleic Acid NOT Detected by DNA Amplification using the [employer] System. Culture is the only recommended test in medical-legal cases such as suspected child abuse or molestation. [place] N. gonorrhoeae DNA PADMINI+probe Ql (Unsp spec) NOT Detected Neisseria gonorrhoeae Nucleic Acid NOT Detected by DNA Amplification using the [employer] System. Culture is the only recommended test in medical-legal cases such as suspected child abuse or molestation. [place] [facility] [address] [place] [id number] Specimen Source Comment:Urine voided [place] CBCon 08-11-2020 Erythrocyte distribution width (RBC) [Ratio] 14.1 % 11.5 - 14.5 % [place] Hematocrit (Bld) [Volume fraction] 27.8 % Low 35 - 47 % [place] Hemoglobin (Bld) [Mass/Vol] 9.6 g/dL Low 11.7 - 16 g/dL [place] Interpretation and review of laboratory results Abnormal [place] MCH (RBC) [Entitic mass] 30.3 pg 26 - 34 pg [place] MCHC (RBC) [Mass/Vol] 34.7 % 32 - 36 % [place] MCV (RBC) [Entitic vol] 87.3 fL 79 - 98 fL [place] Platelet mean volume (Bld) [Entitic vol] 7.1 fL Low 7.4 - 10.4 fL [place] Platelets (Bld) [#/Vol] 312 10*3/uL 140 - 440 10*3/uL [place] RBC (Bld) [#/Vol] 3.18 10*6/uL Low 3.8 - 5.2 10*6/uL [place] WBC (Bld) [#/Vol] 13.1 10*3/uL High 3.6 - 10.7 10*3/uL [place] Test Performed by [facility] [employer] [facility], [address] [place] [address] [place] Chlamydia and GC PCR Panelon 08-11-2020 Chlamydia and GC PCR Panel Chlamydia trachomatis PCR --> Status: F NOT Detected Chlamydia trachomatis Nucleic Acid NOT Detected by DNA Amplification using the [employer] System. Culture is the only recommended test in medical-legal cases such as suspected child abuse or molestation. Chlamydia trachomatis Nucleic Acid NOT Detected by DNA Amplification using the [employer] System. Culture is the only recommended test in medical-legal cases such as suspected child abuse or molestation. Neisseria gonorrhoeae PCR --> Status: F NOT Detected Neisseria gonorrhoeae Nucleic Acid NOT Detected by DNA Amplification using the [employer] System. Culture is the only recommended test in medical-legal cases such as suspected child abuse or molestation. Neisseria gonorrhoeae Nucleic Acid NOT Detected by DNA Amplification using the [employer] System. Culture is the only recommended test in medical-legal cases such as suspected child abuse or molestation. Normal [facility] Comment on above: Order Comment: Speci men Source Comment:Urine voided Performed By: #### H EMOG, MG3, FIBGN, CMP3, PT/AP #### [address] [address] [address] [place], [place] Comp Metabolic Panelon 08-11 ALP [Catalytic activity/Vol] 102 U/L Normal 38-126 [facility] Comment on above: Performed By: #### H EMOG, MG3, FIBGN, CMP3, PT/AP #### [facility] [address] [place], [place] ALT [Catalytic activity/Vol] 19 U/L Normal 0-34 [facility] Comment on above: Result Comment: The ALT test is performed by an updated assay method. Please note that the reference intervals have been changed and are now sex specific. Performed By: #### H EMOG, MG3, FIBGN, CMP3, PT/AP #### [facility] [address] [place], [place] Calcium [Mass/Vol] 9.2 mg/dL Normal 8.4-10.4 [facility] Comment on above: Performed By: #### H EMOG, MG3, FIBGN, CMP3, PT/AP #### [facility] [address] [place], [place] Anion gap [Moles/Vol] 8 Normal [facility] Comment on above: Performed By: #### H EMOG, MG3, FIBGN, CMP3, PT/AP #### [facility] [address] [place], [place] AST [Catalytic activity/Vol] 33 U/L Normal 15-46 [facility] Comment on above: Performed By: #### H EMOG, MG3, FIBGN, CMP3, PT/AP #### [address] [address] [address] Bilirubin [Mass/Vol] 0.4 mg/dL Normal 0.2-1.3 [facility] Comment on above: Performed By: #### H EMOG, MG3, FIBGN, CMP3, PT/AP #### [place] [address] [place], [place] CO2 [Moles/Vol] 23 mmol/L Normal 22-30 [facility] Comment on above: Performed By: #### H EMOG, MG3, FIBGN, CMP3, PT/AP #### [address] [address] [address] [address] [place], [place] Creatinine [Mass/Vol] 0.57 mg/dL Normal 0.52-1.25 [facility] Comment on above: Performed By: #### H EMOG, MG3, FIBGN, CMP3, PT/AP #### [address] [address] [place], [place] GFR/1.73 sq M predicted among blacks MDRD (S/P/Bld) [Vol rate/Area] mL/min/{1.73_m2} Normal >60 [facility] Comment on above: Performed By: #### H EMOG, MG3, FIBGN, CMP3, PT/AP #### [address] [address] [address] [place], [place] GFR/1.73 sq M predicted among non-blacks MDRD (S/P/Bld) [Vol rate/Area] mL/min/{1.73_m2} Normal >60 [facility] Comment on above: Result Comment: KDIG O [...] H EMOG, MG3, FIBGN, CMP3, PT/AP #### [address] Glucose [Mass/Vol] 98 mg/dL Normal 70-100 [facility] Comment on above: Performed By: #### H EMOG, MG3, FIBGN, CMP3, PT/AP #### [address] Protein [Mass/Vol] 6.7 g/dL Normal 6.3-8.2 [facility] Comment on above: Performed By: #### H EMOG, MG3, FIBGN, CMP3, PT/AP #### [address] Urea nitrogen [Mass/Vol] 9 mg/dL Normal 7-20 [facility] Comment on above: Performed By: #### H EMOG, MG3, FIBGN, CMP3, PT/AP #### [address] Potassium [Moles/Vol] 3.8 mmol/L Normal 3.5-5.1 [facility] Comment on above: Performed By: #### H EMOG, MG3, FIBGN, CMP3, PT/AP #### [address] Sodium [Moles/Vol] 134 mmol/L Low 135-145 [facility] Comment on above: Performed By: #### H EMOG, MG3, FIBGN, CMP3, PT/AP #### [facility] [address] [place], [place] Albumin [Mass/Vol] 3.2 g/dL Low 3.5-5.0 [facility] Comment on above: Performed By: #### H EMOG, MG3, FIBGN, CMP3, PT/AP #### [facility] [address] [place], [place] Chloride [Moles/Vol] 103 mmol/L Normal 98-107 [facility] Comment on above: Performed By: #### H EMOG, MG3, FIBGN, CMP3, PT/AP #### [facility] [address] [place], [place] Comprehensive Metabolic Pane iman 08-11-2020 Albumin [Mass/Vol] 3.2 g/dL Low 3.5 - 5 g/dL [place], [place] ALP [Catalytic activity/Vol] 102 U/L 38 - 126 U/L [place], [place] ALT [Catalytic activity/Vol] 19 U/L 0 - 34 U/L [place] Comment on above: The ALT test is perf ormed by an updated assay method. Please note that the reference intervals have been changed and are now sex specific. Anion gap [Moles/Vol] 8 mmol/L [place] AST [Catalytic activity/Vol] 33 U/L 15 - 46 U/L [place] Bilirubin Ql (U) 0.4 mg/dL 0.2 - 1.3 mg/dL [place] Calcium [Mass/Vol] 9.2 mg/dL 8.4 - 10. 4 mg/dL [place] Chloride [Moles/Vol] 103 mmol/L 98 - 10 7 mmol/L [place] CO2 [Moles/Vol] 23 mmol/L 22 - 30 mmol/L [place] Creatinine [Mass/Vol] 0.57 mg/dL 0.52 - 1.25 mg/dL [place] EGFR IF NonAfrican British >90.0 >60 mL/min [place] Comment on above: KDIGO guidelines pro [...] MDRD (S/P/Bld) [Vol rate/Area] mL/min/{1.73_m2} >60 mL/min [place] Glucose [Mass/Vol] 98 mg/dL 70 - 100 mg/dL [place], [place] Interpretation and review of laboratory results Abnormal [place] Potassium [Moles/Vol] 3.8 mmol/L 3.5 - 5.1 mmol/L [place] Protein [Mass/Vol] 6.7 g/dL 6.3 - 8.2 g/dL [place] Sodium [Moles/Vol] 134 mmol/L Low 135 - 145 mmol/L [place] Urea nitrogen [Mass/Vol] 9 mg/dL 7 - 20 mg/dL [place] [facility], [address] [place] [address] [place], [place] Fibrinogenon 08-11-2020 Fibrinogen 587 mg/dL High 200-400 [facility] Comment on above: Performed By: #### H EMOG, MG3, FIBGN, CMP3, PT/AP #### [address] [id number] Fibrinogen 587 mg/dL High 200 - 400 mg/dL [place], [place] Interpretation and review of laboratory results Abnormal [place] Hemogramon 08-11-2020 Erythrocyte distribution width (RBC) [Ratio] 14.1 % Normal 11.5-14.5 [facility] Comment on above: Performed By: #### H EMOG, MG3, FIBGN, CMP3, PT/AP #### [address] [address] [place], [place] Hematocrit (Bld) [Volume fraction] 27.8 % Low 35.0-47.0 [facility] Comment on above: Performed By: #### H EMOG, MG3, FIBGN, CMP3, PT/AP #### [address] [address] [place], [place] Hemoglobin (Bld) [Mass/Vol] 9.6 g/dL Low 11.7-16.0 [facility] Comment on above: Performed By: #### H EMOG, MG3, FIBGN, CMP3, PT/AP #### [address] [address] [place], [place] MCH (RBC) [Entitic mass] 30.3 pg Normal 26.0-34.0 [facility] Comment on above: Performed By: #### H EMOG, MG3, FIBGN, CMP3, PT/AP #### [address] MCHC (RBC) [Mass/Vol] 34.7 % Normal 32.0-36.0 [facility] Comment on above: Performed By: #### H EMOG, MG3, FIBGN, CMP3, PT/AP #### [address] MCV (RBC) [Entitic vol] 87.3 fL Normal 79.0-98.0 [facility] Comment on above: Performed By: #### H EMOG, MG3, FIBGN, CMP3, PT/AP #### [address] Platelet mean volume (Bld) [Entitic vol] 7.1 fL Low 7.4-10.4 [facility] Comment on above: Performed By: #### H EMOG, MG3, FIBGN, CMP3, PT/AP #### [facility] [address] [place], [place] Platelets (Bld) [#/Vol] 312 10*3/uL Normal 140-440 [facility] Comment on above: Performed By: #### H EMOG, MG3, FIBGN, CMP3, PT/AP #### [facility] [address] [place], [place] RBC (Bld) [#/Vol] 3.18 10*6/uL Low 3.80-5.20 [facility] Comment on above: Performed By: #### H EMOG, MG3, FIBGN, CMP3, PT/AP #### [facility] [address] [place], [place] WBC (Bld) [#/Vol] 13.1 10*3/uL High 3.6-10.7 [facility] Comment on above: Performed By: #### H EMOG, MG3, FIBGN, CMP3, PT/AP #### [facility] [address] [place], [place] MFM US Complete w/ detailon 08-11-2020 MFM US Complete w/detail Patient Name: CYNTHIA MOLINA Maternal Medicine Exam Date/Time 08/11/2020 09:19:43 EST Exam MFM US Complete w/detail Ordering Physician DO MENDOZA DEREK Accession Number [id number] Reason For Exam vaginal bleeding Report OBSTETRICS REPORT (Signed Final 08/11/2020 03:02 pm) Patient Info ID #: [id number] : [birth year] (39 yrs) Name: CYNTHIA MOLINA Visit Date: 08/11/2020 09:21 am Performed By Performed By: Chelsea Melo Referred By: MYRTLE MENDOZA RDMS, DO Attending: Ana Laura Nina Location: [facility] Service(s) Provided US Level II complete (Targeted OB) 13882 Indications Vaginal Bleeding Fiboids Club Foot Advanced [...] Rhythm: Normal appearance Cardiac Motion: Observed Cardiac Hancock: Normal appearance R Outflow Tract: Normal appearance [...] Signed by: DO NINA KATHERINE BRIDGET Normal [facility] Otheron 08-11-2020 Test Performed by [facility], [address] [place] [id number] [place], [place] PROTIME/INR & PTTon 08-11-20 20 aPTT Coag (Bld) [Time] 24.5 s 20 - 30.5 s [place] Comment on above: NOTE: The therapeuti c time for Heparin anticoagulation, based on Xa activity inhibition, is an APTT of 46-80 seconds. INR Coag (PPP) [Relative time] {INR} [place] Comment on above: Recommended Anticoag ulant [...] [Time] 9.7 s 9 - 12 s [place] Comment on above: . Protime AND APTTon 0 INR Coag (PPP) [Relative time] {INR} Normal 0.9-1.1 [facility] Comment on above: Result Comment: Lb mmended [...] H EMOG, MG3, FIBGN, CMP3, PT/AP #### [address] [address] [address] [place], [place] PT Coag (PPP) [Time] 9.7 s Normal 9.0-12.0 [facility] Comment on above: Result Comment: . Performed By: #### H EMOG, MG3, FIBGN, CMP3, PT/AP #### [facility] [address] [place], [place] aPTT Coag (Bld) [Time] 24.5 s Normal 20.0-30.5 [facility] Comment on above: Result Comment: NOTE : The therapeutic time for Heparin anticoagulation, based on Xa activity inhibition, is an APTT of 46-80 seconds. Performed By: #### H EMOG, MG3, FIBGN, CMP3, PT/AP #### [address] [address] [address] [place] [address] TS GELon 08-11-2020 TS GEL ABO Group: B Rh, Gel: POS Antibody Screen Gel: NEG Normal [facility] Comment on above: Performed By: #### H EMOG, MG3, FIBGN, CMP3, PT/AP #### [address] [address] [place] [address] TYPE AND SCREENon 08-11-2020 Sodium [Moles/Vol] Positive Compendium, Serviceful Sodium [Moles/Vol] B Compendium, Serviceful Sodium [Moles/Vol] Negative [facility] [place], Serviceful Test Performed by [facility] [employer] [id number] [place] [address] e994 [employer] [place] US OB DETAIL ANATOMY S NAZIA OR FIRST GESTATIONon 08-11-2020 Patient Name: CYNTHIA MOLINA ---Maternal Medicine--- Exam Date/Time 08/11/2020 09:19:43 EST Exam MF US Complete w/detail Ordering Physician DO MENDOZA DEREK Accession Number [id number] Reason For Exam vaginal bleeding Report OBSTETRICS REPORT (Signed Final 08/11/2020 03:02 pm) Patient Info ID #: [id number] : [birth year] (39 yrs) Name: CYNTHIA MOLINA Visit Date: 08/11/2020 09:21 am Performed By Performed By: Chelsea Melo Referred By: MYRTLE MENDOZA [facility] DO Attending: Ana Laura Nina Location: [facility] Service(s) Provided US Level II complete (Targeted OB) [address]220 Indications Vaginal Bleeding Fiboids Club Foot Advanced [...] Rhythm: Normal appearance Cardiac Motion: Observed Cardiac Hancock: Normal appearance R Outflow Tract: Normal appearance [...] pm Signed by: DO NINA KATHERINE BRIDGET [facility] Incoming Radiology Results From [facility] - 08/11/2020 3:04 PM EST Patient Name: CYNTHIA MOLINA ---Maternal Medicine--- Exam Date/Time 08/11/2020 09:19:43 EST Exam MFM US Complete w/detail Ordering Physician DO MENDOZA DEREK Accession Number [id number] Reason For Exam vaginal bleeding Report OBSTETRICS REPORT (Signed Final 08/11/2020 03:02 pm) Patient Info ID #: [id number] : [birth year] (39 yrs) Name: CYNTHIA MOLINA Visit Date: 08/11/2020 09:21 am Performed By Performed By: Chelsea Melo Referred By: MYRTLE MENDOZA [facility] Attending: Ana Laura Nina Location: [facility] DARLENE [facility] Service(s) Provided US Level II complete (Targeted OB) 15393 Indications Vaginal Bleeding Fiboids Club Foot Advanced [...] Rhythm: Normal appearance Cardiac Motion: Observed Cardiac Hancock: Normal appearance R Outflow Tract: Normal appearance [...] pm Signed by: DO NINA KATHERINE BRIDGET [place], [place] Progress Noteon 07-27-2020 [employer]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 Authentication Interface Message Text Maternal Medicine Consult [...] on phone: None Gets together: None Attends rastafari service: None Active member of club or [...] No Muscular Dystrophy No Cystic Fibrosis No Collins's Chorea No Intellectual Disability/Autism Yes Pt's twin [...] of 07/27/2020 Medication Sig Dispense Refill Vit w/Dl-Msjjkeqbj-XO (PNV PO) Take by mouth [place]-3 Fatty Acids (FISH OIL) 1000 MG CAPS [...] advocated during a delivery but seeing a litigation examiner oncologist at some point after delivery to [...] this will be arranged with their future FTC consultation Hearing loss in left ear Follow [...] was spent counseling and coordinating care. Normal [facility] Hep C Ab IA w/Confon 020 Hepatitis C Ab IA NEGAT Normal Negative [facility] Comment on above: Performed By: #### P OMER3 #### [facility] [address] [phone] #### AHCV1B #### [facility] Routine Lab [address] [phone] NLYon 05-12-2020 Rubella IgG Ab 2.41 Index Value Normal [facility] Comment on above: Performed By: #### P OMER3 #### [facility]ology [address] [phone] #### AHCV1B #### [facility] Routine Lab [address] [place] [address] Rubella IgG Ab, Qual Positive Abnormal Negative [facility] Comment on above: Performed By: #### P OMER3 #### [facility] [address] [place] [phone] #### AHCV1B #### [facility] Routine Lab [address] [place] [phone] NLYon 05-11-2020 Hepatitis B Surf. Ag NEGAT Normal Negative [facility] Comment on above: Performed By: #### P OMER3 #### [facility] [address] [place] [address] #### AHCV1B #### [facility] Routine Lab [address] [place] [address] Reagin Ab RPR Ql (S) NR Normal Non Reactive [facility] Reference [facility] Comment on above: Performed By: #### P OMER3 #### [facility] [address] [place] [address] #### AHCV1B #### [facility] Routine Lab [address] [place] [address] ABO, External Resulton 05-09 ABO, External Result B [facility], [place] C. Trachomatis, External Res ulton 05-09-2020 C. Trachomatis, External Result Negative [facility] [employer] [place] GBS, External Resulton 05-09 GBS, External Result pending [facility]- [place], [place]ORET[place] HIV, External Resulton 05-09 HIV, External Result Negative [facility] Hepatitis B, External Result on 05-09-2020 Hep B, External Result nonreactive [facility] [place] Hepatitis C Antibody, Environmental Protection Economist al Resulton 05-09-2020 Hepatitis C Antibody, External Result Negative [facility] [place] N. Gonorrhoeae, External Res ulton 05-09-2020 N. Gonorrhoeae, External Result Negative [facility] Otheron 05-09-2020 Verified by cassandra escudero RN [facility] [place] RPR, External Labon 05-09-20 20 RPR, External Result nonreactive [facility] [employer] [place] Rh Factor, External Resulton 05-09-2020 Rh Factor, External Result Positive [facility] [employer] [place] Rhogam, External Resultson 0 05-09-2020 Rhogam, External Result no [facility] [employer] [place] Rubella Titer, External Resu lton 05-09-2020 Rubella Titer, External Result Positive [facility] [employer] [place] Vital Signs Date Time Vital Sign Value Performing Clinician Faci sudhir 04-07-2024 08:05-0400 Body height 166.37 cm Codie Novak PA-C Work Phone: [employer]; [employer] 04-07-2024 08:05-0400 Body mass index (BMI) [Ratio] 21.14 kg/m2 Codie Novak PA-C Work Phone: [employer]; [facility] [facility] 04-07-2024 08:05-0400 Body surface area Derived from formula 1.65 m2 Codie Novak PA-C Work Phone: [employer]; [employer]. 04-07-2024 08:05-0400 Body weight 58.51 kg Codie Novak PA-C Work Phone: [employer]; [employer] 04-07-2024 08:05-0400 Diastolic blood pressure 70 mm[Hg] Codie Novak PA-C Work Phone: [facility] [employer]. Comment on above: Patient Position: Sitting; Cuff Location : Left Arm; Cuff Size: Standard 04-07-2024 08:05-0400 Heart rate 69 /min Codie Novak PA-C Work Phone: [facility] [employer]. Comment on above: Pattern: Regular 04-07-2024 08:05-0400 Systolic blood pressure 106 mm[Hg] Codie Novak PA-C Work Phone: [facility].; [employer]. Comment on above: Patient Position: Sitting; Cuff Location : Left Arm; Cuff Size: Standard 11-18-2022 08:31-0500 Body height 166.37 cm Nupur Wen [facility].; [employer]. 11-18-2022 08:31-0500 Body mass index (BMI) [Ratio] 22.12 kg/m2 Nupur Wen [facility].; [place] [employer] [facility]. 11-18-2022 08:31-0500 Body surface area Derived from formula 1.68 m2 Nupur Wen LPN [facility].; [place] [employer] [facility]. 11-18-2022 08:31-0500 Body weight 61.24 kg Nupur Wen [facility] [employer] [facility].; [employer]. 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 Comment on above: Patient Position: Sitting; Cuff Location : Left Arm; Cuff Size: Standard 11-18-2022 08:31-0500 Heart rate 89 /min Nupur Wen LPN [facility].; [employer]. Comment on above: Pattern: Regular 11-18-2022 08:31-0500 Systolic blood pressure 121 mm[Hg] Nupur Wen LPN [facility].; [place] [employer]. Comment on above: Patient Position: Sitting; Cuff Location : Left Arm; Cuff Size: Standard 05-23-2021 16:33-0400 Body height 166.37 cm Kaushik Davidson MD Work Phone: [place] [employer]; [employer] 05-23-2021 16:33-0400 Body mass index (BMI) [Ratio] 23.76 kg/m2 Kaushik Davidson MD Work Phone: [place] [employer] [place] [employer] 05-23-2021 16:33-0400 Body surface area Derived from formula 1.74 m2 Kaushik Davidson MD Work Phone: [place] [employer]; [employer] 05-23-2021 16:33-0400 Body weight 65.77 kg Kaushik Davidson MD Work Phone: [place] [employer]. 05-23-2021 16:33-0400 Diastolic blood pressure 74 mm[Hg] Kaushik Davidson MD Work Phone: [place] [employer]; [employer]. Comment on above: Patient Position: Sitting; Cuff Location : Left Arm; Cuff Size: Standard 05-23-2021 16:33-0400 Heart rate 76 /min Kaushik Davidson MD Work Phone: [employer]. Comment on above: Pattern: Regular 05-23-2021 16:33-0400 Systolic blood pressure 114 mm[Hg] Kaushik Davidson MD Work Phone: [employer]. Comment on above: Patient Position: Sitting; Cuff Location : Left Arm; Cuff Size: Standard 11-09-2020 05:14-0500 Body Temperature 98.6 [degF] Lovely WAGNER Work Phone: 11-09-2020 05:14-0500 BP Diastolic 58 [...] 11-08-2020 08:18-0500 Body weight 64.41 kg Lovely Cesta [facility] Work Phone: 11-08-2020 08:18-0500 Height 167.6 cm Lovely Cesta [facility] Work Phone: 11-01-2020 14:17-0500 BMI (Body Mass Index) 23.05 kg/m2 Lovely Cesta [facility] Work Phone: 11-01-2020 14:17-0500 Body weight 64.77 kg Lovely Cesta [facility] Work Phone: 11-01-2020 14:17-0500 Height 167.6 cm Lovely Cesta [facility] Work Phone: 11-01-2020 14:15-0500 Body Temperature 97.3 [degF] Lovely Cesta [facility] Work Phone: 11-01-2020 14:15-0500 BP Diastolic 78 mm[Hg] Lovely Cesta [facility] Work Phone: 11-01-2020 14:15-0500 BP Systolic 113 mm[Hg] Lovely Cesta [facility] Work Phone: 11-01-2020 14:15-0500 Pulse (Heart Rate) 77 /min Lovely WAGNER Work Phone: 11-01-2020 14:15-0500 Pulse Oximetry 99 % Lovely WAGNER Work Phone: 11-01-2020 14:15-0500 Respiratory Rate 18 /min Lovely WAGNER Work Phone: 08-16-2020 08:59-0500 Body Temperature 97.59 [degF] [place] 08-16-2020 08:59-0500 BP Diastolic 72 mm[Hg] [place] 08-16-2020 08:59-0500 BP Systolic 112 mm[Hg] [place] 08-16-2020 08:59-0500 Pulse (Heart Rate) 84 /min [place] 08-16-2020 08:59-0500 Pulse Oximetry 97 % [place] 08-16-2020 08:59-0500 Respiratory Rate 20 /min [place] 08-11-2020 06:26-0500 BMI (Body Mass Index) 24.21 kg/m2 [place] 08-11-2020 06:26-0500 Body weight 68.04 kg [place] 08-11-2020 06:26-0500 Height 167.6 cm [place] 11-07-2016 14:39-0500 Body height 166.37 cm Kaushik Davidson MD Work Phone: [employer]; [employer] 11-07-2016 14:39-0500 Body mass index (BMI) [Ratio] 22.45 kg/m2 Kaushik Davidson MD Work Phone: [employer]; [employer] 11-07-2016 14:39-0500 Body surface area Derived from formula 1.69 m2 Kaushik Davidson MD Work Phone: [employer]; [employer] 11-07-2016 14:39-0500 Body weight 62.14 kg Kaushik Davidson MD Work Phone: [employer]; [employer] 11-07-2016 14:39-0500 Diastolic blood pressure 79 mm[Hg] Kaushik Davidson MD Work Phone: [employer]; [employer] Comment on above: Patient Position: Sitting; Cuff Location : Right Arm; Cuff Size: Standard 11-07-2016 14:39-0500 Heart rate 88 /min Kaushik Davidson MD Work Phone: [employer]; [employer] Comment on above: Pattern: Regular 11-07-2016 14:39-0500 Systolic blood pressure 128 mm[Hg] Kaushik Davidson MD Work Phone: [employer]; [employer]. Comment on above: Patient Position: Sitting; Cuff Location : Right Arm; Cuff Size: Standard 10-31-2016 15:04-0500 Body height 166.37 cm Kaushik Davidson MD Work Phone: [employer]; [employer] 10-31-2016 15:04-0500 Body mass index (BMI) [Ratio] 22.78 kg/m2 Kaushik Davidson MD Work Phone: [employer]; [employer] 10-31-2016 15:04-0500 Body surface area Derived from formula 1.7 m2 Kaushik Davidson MD Work Phone: [employer]; [employer] 10-31-2016 15:04-0500 Body temperature 97.4 [degF] Kaushik Davidson MD Work Phone: [employer]; [employer] Comment on above: Method: Tympanic 10-31-2016 15:04-0500 Body weight 63.05 kg Kaushik Davidson MD Work Phone: [employer]; [employer] 10-31-2016 15:04-0500 Diastolic blood pressure 84 mm[Hg] Kaushik Davidson MD Work Phone: [employer] Comment on above: Patient Position: Sitting; Cuff Location : Right Arm; Cuff Size: Standard 10-31-2016 15:04-0500 Heart rate 102 /min Kaushik Davidsno MD Work Phone: [employer]. Comment on above: Pattern: Regular 10-31-2016 15:04-0500 Systolic blood pressure 125 mm[Hg] Kaushik Davidson MD Work Phone: [employer]; [employer]. Comment on above: Patient Position: Sitting; Cuff Location : Right Arm; Cuff Size: Standard Encounters Encounter Date Encounter Type Care Provider Facility Start: 08-09-2025 ambulatory Kaushik Davidson Facili ty:[facility] Start: 08-02-2025 ambulatory Arlene Bernadette NP Facil ity:[facility] Start: 04-07-2024 End: 04-07-2024 Office outpatient visit 15 minutes Codie Novak PA-C Work Phone: [employer] Start: 02-03-2023 End: 02-03-2023 Medication Kaushik Davidson MD Work Phone: [employer] Start: 12-31-2022 End: 12-31-2022 Medication Kaushik Davidson MD Work Phone: [employer]. Start: 11-26-2022 End: 11-26-2022 ambulatory CODIE Mena [facility] Start: 11-25-2022 End: 11-25-2022 Orders Kaushik Davidson MD Work Phone: [employer] Start: 11-21-2022 End: 11-21-2022 Orders Kaushik Davidson MD Work Phone: [employer] Start: 11-18-2022 End: 11-18-2022 Patient encounter procedure Kaushik Davidson MD Work Phone: [employer] Start: 05-29-2022 End: 05-29-2022 ambulatory [facility] Work Phone: Start: 05-29-2022 End: 05-29-2022 Patient encounter procedure [facility]-Outpatient Breast Imaging Start: 06-01-2021 End: 06-01-2021 Orders Kaushik Davidson MD Work Phone: [employer] Start: 05-23-2021 End: 05-23-2021 Office outpatient visit 10 minutes Kaushik Davidson MD Work Phone: [employer] Start: 05-14-2021 End: 05-14-2021 Historical Summary Kaushik Davidson MD Work Phone: [employer] Start: 11-08-2020 End: 11-09-2020 Subsequent hospital visit by physician Lovely Freeman Work Phone: [facility] H5 MED SURG Comment on above: Post-op pain (Primar y Dx) Start: 11-01-2020 End: 11-01-2020 Subsequent hospital visit by physician Lovely Freeman Work Phone: [facility] Pre-Admit Testing Comment on above: Arrived Start: 10-05-2020 End: 10-05-2020 Subsequent hospital visit by physician Lovely Freeman Work Phone: [facility] Comment on above: Arrived Start: 08-11-2020 End: 08-16-2020 Evaluation and management of inpatient Myrtle Mendoza Work Phone: [facility] H4 Comment on above: S/P section (Primary Dx) Start: 08-02-2017 End: 08-02-2017 Medication Kaushik Davidson MD Work Phone: [employer] Start: 07-10-2017 End: 07-10-2017 Medication Kaushik Davidson MD Work Phone: [employer] Start: 11-07-2016 End: 11-08-2016 Patient encounter procedure Kaushik Davidson MD Work Phone: [employer] Start: 10-31-2016 End: 10-31-2016 Patient encounter procedure Kaushik Davidson MD Work Phone: [employer] Procedures Date Procedure Procedure Detail Performing Clinician Start: 11-21-2022 End: 12-09-2022 Xtrnl pt activ ecg transmis w/r&i 30 days Codie RODRIGUES-Zully Work Phone: Comment on above: 48 hours [...] Start: 11-08-2020 Urine test visual color cmprsn danishs Ramses Sheppard Work Phone: Start: 11-08-2020 JESSICA STUDIO [...] Start: 08-12-2020 Fibrinogen activity Gallo in Adria Stlol Work Phone: Start: 08-12-2020 PROTIME/INR & PTT [...] Start: 08-11-2020 PREPARE FRESH FROZEN PLASMA Narayan W Jerman Work Phone: Start: 08-11-2020 PREPARE PLATELETS Radha orta I Andrzej Work Phone: Start: 08-11-2020 PROTIME/INR & PTT Akira Ball Work Phone: Start: 05-09-2020 ABO, EXTERNAL RESULT [facility] Provider Start: 05-09-2020 C. TRACHOMATIS, EXTE RNAL RESULT Historical Provider Start: 05-09-2020 [facility] Start: 05-09-2020 HEPATITIS B, EXTERNA L RESULT Historical Provider Start: 05-09-2020 HEPATITIS C ANTIBODY , EXTERNAL RESULT Historical Provider Start: 05-09-2020 HIV, [facility]ULT [facility] Start: 05-09-2020 N. GONORRHOEAE, EXTE RNAL RESULT Historical Provider Start: 05-09-2020 RH FACTOR, EXTERNAL RESULT Historical Provider Start: 05-09-2020 RHOGAM, EXTERNAL RESULT Historical Provider Start: 05-09-2020 RPR, EXTERNAL RESULT [facility] Start: 05-09-2020 RUBELLA TITER, EXTER NAL [...] Obstetrics and Gynecology Lovely Freeman MD [address] [place] [address] [facility] Start: 11-08-2020 End: 11-08-2020 Appointment 11/08/2020 Appointment General Surgery Lovely Freeman MD [address] [place] [address] William Kay MD [address] [place] [address], [address] [place] [address] [phone] [facility] General Surgery Start: 10-12-2020 End: 10-12-2020 Office Visit 10/12/2020 Office Visit Obstetrics and Gynecology Lovely Freeman MD [address] [place] [address] [facility] Start: 05-23-2020 Influenza vaccination Flu vaccine (# 1) [place], [place] Start: 2002 Screening for malign ant neoplasm of cervix Cervical cancer screen [place], [place] Start: 2000 DTaP/Tdap/Td vaccine (1 - Tdap) DTaP/Tdap/Td vaccine (1 - Tdap) [place] Start: 1996 HIV screening HIV screen [place], [place] Start: 11-28-1987 Pneumococcal 0-64 ye ars Vaccine (1 of 2 - PCV13) Pneumococcal 0-64 years Vaccine (1 of 2 - PCV13) [place] Start: 1982 Varicella vaccine (1 of 2 - 2-dose childhood series) Varicella vaccine (1 of 2 - 2-dose childhood series) [place] Start: 1981 Hepatitis C screening Hepatitis C sc reen [place] Hemoglobin and Hematocrit, Blood, Post Transfusion Hemoglobin and Hematocrit, Blood, Post Transfusion Lab Routine Post Transfusion Post Transfusion Post Transfustion for 1 Occurrences starting 08/12/2020 [place] Comment on above: Post Transfusion Pos t Transfusion Post Transfustion for 1 Occurrences starting 08/12/2020 Oxygen therapy [[facility] [place]] [place] Comment on above: Daily until disconti nued starting 08/13/2020 Daily until disconti nued starting 11/08/2020 Spirometry panel Incentive tamra metry Respiratory Care Routine Every 2hr while awake until discontinued starting 08/13/2020 [place] Comment on above: Every 2hr while awak e until discontinued starting 08/13/2020 End: 11-08-2020 Surgical Pathology Surgical Pathology Lab Routine Once for 1 Occurrences starting 11/08/2020 until 11/08/2020 [employer] Work Phone: Comment on above: Once for 1 Occurrenc es starting 11/08/2020 until 11/08/2020 Surgical Pathology Surgical Path ology Lab Routine 11/08/2020 1:54 PM EST [employer] Work Phone: Transfuse erythrocyt es [Vol] [place], [place] Transfuse fresh froz en plasma Transfuse fresh frozen plasma Nursing Transfusion Routine 08/12/2020 7:50 PM EST [place] End: 10-05-2020 US NON OB TRANSVAGINAL US NON OB TRANSVAGINAL Imaging Routine Once for 1 Occurrences starting 10/05/2020 until 10/05/2020 [place] Comment on above: Once for 1 Occurrenc es starting 10/05/2020 until 10/05/2020 US NON OB TRANSVAGINAL US NON OB TRANSVAGINAL Imaging Routine 10/05/2020 1:23 PM EST [place] End: 10-05-2020 US PELVIS COMPLETE US PELVIS COMPLETE Imaging Routine Once for 1 Occurrences starting 10/05/2020 until 10/05/2020 [place] Comment on above: Once for 1 Occurrenc es starting 10/05/2020 until 10/05/2020 US PELVIS COMPLETE US PELVIS COM PLETE Imaging Routine 10/05/2020 1:23 PM EST [place] Immunizations Immunization Date Immunization Notes Care Provider Ninfa brantley NEGATED: Highlighted row has not occurred!08-16-2020 measles, mumps and rubella virus vaccine [place] NEGATED: Highlighted row has not occurred!08-15-2020 tetanus toxoid, reduced diphtheria toxoid, and acellular pertussis vaccine, adsorbed [place] NEGATED: Highlighted row has not occurred!08-13-2020 tetanus toxoid, reduced diphtheria toxoid, and acellular pertussis vaccine, adsorbed [place], [place] Payers Date Payer Category Payer Self-pay [id number] Unknown [id number] 1980 Unknown [id number] 1980 Unknown [id number] Unknown 78 Unknown [id number] Unknown [id number] Social History Date Type Detail Facility Start: 08-16-2020 End: 09-28-2020 Tobacco smoking status NHIS Never smoker [place] Start: 08-16-2020 End: 09-28-2020 Tobacco use and exposure Never used [place] Start: 08-16-2020 End: 09-28-2020 Alcohol intake Lifetime non-drinker (finding) [place] Start: 08-11-2020 History SDOH Alcohol Frequency 1 [place] Sex Assigned At Not on file [place] Exposure to SARS-CoV -2 (event) Not sure [employer] Work Phone: Start: 1980 Sex Assigned At Female W [facility] Work Phone: Alcohol Use: Alcohol Use: ; None. Depop.; [employer] Tobacco Use: Tobacco Use: ; N ever smoker. Depop.; Depop. Evaluation note Note Date & Type Note Facility Evaluation note No assessment information availa [facility] Work Phone: Summary Purpose Family History No [...] Information for the patient's : Ani Molina [[id number]] female Weight: 550gm Apgars: Information for the patient's : Ani Molina Cynthia [[id number]] Apgars of 3/6/7 transferred to [facility] Course: :female at [facility] Blood (more content not included)... Note Attestation signed by Lovely Freeman MD at 11/09/2020 9:32 AM I reviewed and agree with the care provided by the resident/CNM during the visit including the patient's medical history, the resident's findings in the physical exam, patient's diagnosis and treatment plan. Lead Ruby On Rails Developer Discharge Summary Patient Name: Cynthia Molina Patient [...] cystoscopy, lysis of adhesions Surgeon: Dr. Freeman Assistant Federal Public Defender(s): Dr. Kay who was needed for instrument [...] not included)... Discharge Instructions * Instructions* Corrine Arias, - 08/15/2020 After Your Delivery (the Period): [...] as 8 weeks after delivery. Bleeding may bean picker and then decrease again around 7-10 [...] of harming yourself or your infant. If will not stop crying, contact another adult for help or place infant in their crib on their back and [...] avoid constipation you may take a mild zfxw-cxt-xjbauyi stool softener (such as colace) as recommended [...] positive or a Person Under Investigation (PUI) Dqrcyt-bs-cjgvq transmission of COVID-19 during is unlikely, but after a baby is susceptible to licqkw-np-uizftl spread. ? After your baby is born, [...] clean your hands with an alcohol-based hand waste minimization technician that contains at least 60% alcohol. Clean your hands often ? Wash your hands often with soap and water for at least 20 seconds, especially after blowing your nose, coughing, or sneezing; going to the bathroom; and before eating or preparing food. If soap andwater are not readily available, use an alcohol-based hand waste minimization technician with at least 60% alcohol, covering all [...] healthcare provider to call the local or [facility] health department. Persons who are placed under active monitoring or facilitated self- monitoring should follow instructions provided by their local health department or occupational health professionals, as appropriate. When working with your [facility] health department check their available hours. ? [...] isolation precautions should be made on a keju-gp-lznh basis, in consultation with healthcare providers and [facility] health departments. Information on COVID-19 for ALL [...] respiratory tract signs and symptoms. Ways to [place] with Anxiety & Stress ? It is [...] an illness that was first found in [facility], in August 2019. It has [...] seen in people before. This virus spreads qjbmmd-ra-izhrnr through droplets from coughing and sneezing. It [...] water aren't available, use an alcohol-based hand waste minimization technician. Call 911 anytime you think you may [...] you may have been exposed tothe virus. U.S. Centers for Disease Control and Prevention (CDC): The CDC provides updated news about the disease and travel advice. The website also tells you how to prevent the spread of infection. www.cdc.gov World Health Organization (WHO): WHO offers information about the virus outbreaks. WHO also has travel advice. www.who.int Current as of: December 22, 2019 Content Version: 12.4 [employer]. Care instructions adapted under license by your healthcare professional. If you have questions about a medical condition or this instruction, always ask your healthcare professional. [employer] disclaims any warranty or liability for your use of this information. General Recommendations for Routine Cleaning and Disinfection of Households Community members can practice routine cleaning of frequently touched surfaces (for example: tables, doorknobs, light switches, handles, desks, toilets, faucets, sinks) with household relay operator and EPA-registered disinfectants that are appropriate for [...] appropriate. These supplies include tissues, paper towels, relay operator and EPA-registered disinfectants (see list link at [...] be used for other purposes. Consult the loan operations specialist's instructions for cleaning and disinfection products used. [...] used if appropriate for the surface. Follow loan operations specialist's instructions for application and proper ventilation. Check [...] o Products with EPA-approved emerging viral pathogens [facility] iconexternal icon are expected to be effective against COVID-19 based on data for harder to kill viruses. Follow the loan operations specialist's instructions for all cleaning and disinfection products (e.g., concentration, application method and contact time, etc.). Soft (porous) surfaces such as carpeted floor, rugs, and drapes Remove visible contamination if present and clean with appropriate relay operator indicated for use on these surfaces. After cleaning: Launder items as appropriate in accordance with the loan operations specialist's instructions. If possible, launder items using the [...] items as appropriate in accordance with the loan operations specialist's instructions. If possible, launder items using the warmest appropriate water setting for the items and dry items completely. Dirtylaundry from an ill person can be washed with other people's items. o Clean and disinfect clothes hampers according to guidance above for surfaces. If possible, consider placing a [employer] assistant manager that is either disposable (can be thrown away) or can be laundered. [facility] has a list of EPA approved cleaning products on their website - https://www.cdc.gov/coronavirus/ 2019-ncov/community/home/cleaning-disinfection.html https://www.[employer]smith/Cyizu-Uaphrzqvdxe-Vvbkekwm-Products-List.pdf documented in this encounter* Instructions* Mayi Mohan RN - 11/01/2020 Please bring your [employer] Information folder on the day of [...] through Care Everywhere. * Laparoscopic Hysterectomy: Post-op (Togolese) * Cystoscopy: Post-op (Togolese) documented in this encounter* Instructions* Stephanie Georges DO - 11/08/2020 Laparoscopic Hysterectomy: What to [...] your doctor if you can take an muyz-uwa-elbutqm medicine. If your doctor prescribed antibiotics, take [...] Where can you learn more? Go to https://bert.healthOpax.org and sign in to your [employer] account. Enter Q131 in the Search Health Information box to learn more about Laparoscopic Hysterectomy: What to Expect at Home. If you do not have an account, please click on the Sign Up Now link. Current as of: July 30, 2019 Content Version: 12.6 [employer]. Care instructions adapted under license by [employer]. If you have questions about a medical condition or this instruction, always ask your healthcare professional. [employer] disclaims any warranty or liability for your use of this information. * Attachments The following attachments cannot be sent through Care Everywhere. 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 Current Nutrition Therapies: DIET GENERAL; Nutrition Interventions: Food and/or Nutrient Delivery: Continue Current Diet Coordination of Nutrition Care: Continue to monitor while inpatient(sign off to dietetics director to continue to monitor) Contact: pager x [phone] * Kuldip Zavaleta MD - 08/16/2020 5:56 [...] controlled yes. Vital Signs: Vitals: 08/14/20 0913 08/14/20201108/15/2091308/15/202030 BP: 105/76 108/78 106/75 131/76 Pulse: 82 [...] - Doing well, VSS - Female infant - Breast feeding - Contraception: Per private [...] home and follow up as directed at [facility] I spent 15 minutes at the visit, with more than 50% of the total face to face time of the visit in counseling and coordination of care. Kuldip Zavaleta * Kay Gerard RN - 08/15/2020 1:[address] [facility] via [facility] accom by to waiting [...] output data in the 24 hours ending 08/15/20 0627 Physical Exam: General: no apparent distress, alert [...] Doing well, VSS - Female infant at [facility] - Pumping - Contraception: Per private attending [...] Care - Doing well, VSS - Female at [facility] - Pumping - Contraception: Per private attending [...] on admission - VSS Fibroid uterus - 28h27se posterior mid and 6x6cm left fundal, degenerating [...] up with MFM for incision check. For intermodal dispatcher fibroid follow-up, she would liketo [facility] We recommended Dr. Freeman and will provider her with that contact number on her discharge instructions. I spent 15 minutes in the visit, with more than 50% of the total drwz-mx-bppd time of the visit in counseling/coordination of care. * Karina Chandler, RN - 08/13/2020 12:17 PM EST Pt up to bathroom with standby assist. mira well. Unable to void at this time. Will attempt again. Keira care and pads changed. Pt back to bed, linen and gown changed. Pt set up to eat lunch. Dr paulson paged. Pt asking for pass and supplements to be re ordered. * Iram Paz DTR - 08/13/2020 9:52 AM EST Nutrition rescreen completed. Patient assigned a level 1. * Karina Chandler RN - 08/13/2020 8:45 [...] 08/13/2020 0655 Last data filed at 08/12/2020 2130 Gross per 24 hour Intake 2772.5 ml [...] psoterior uterine hysterotomy via vertical skin incision 10/24 Cat III FHT Care - Doing well, VSS - Female infant at [facility] - Bottle feeding - Contraception: Per private [...] pending - VSS, Asymptomatic Fibroid uterus - [id number] posterior mid and 6x6cm left fundal degenerating anterior fibroid - Pictures in media tab Disposition: Continue current care Based on my clinical assessment, this patient is safe for self discharge (does not need transport by wheelchair) if she so chooses. Provider's Name: DO Glenis Galicia DO 08/13/2020, 6:55 AM I performed a history [...] residency staff and nursing Mila Paulson MD Daniela Mcduffie RN - 08/13/2020 6:40 AM EST Pt up to bathroom with RN assistance. Pt tolerated well. Pt's pads were changed and pt was returnedback to bed safely. Daniela Hayes RN - 08/13/2020 12:44 AM EST Pt refused Tdap and flu vaccine. Pt states she does not have an email address, so TIANA was not assigned to patient. Mila Taylor MD - 08/12/2020 6:54 PM EST MFM [...] proceed with . I spoke with the inspector shells today and anesthesia is aware of this plan as well. She has received 2 units of blood and another 2 units with FFP are also on hold. Spoke with anesthesia and will plan on spinal at this time. The patient is aware of need for vertical skin and classical uterine incision. Will call litigation examiner oncology if needed. Mila Paulson * Narayan [...] anesthesia, attending and patient's nurse. All agree. SENIOR PRODUCT DEVELOPMENT ENGINEER aware, inspector shells on there way in house This is [...] tablet 1 tablet Oral Daily Rafaela Ball, DO magnesium sulfate (20 G/500 mL) infusion 2 g/hr Intravenous Continuous Glenis Severo Dave, DO 50 mL/hr at 08/11/20 2339 2 g/hr at 08/11/20 2339 oxytocin (PITOCIN) 30 units in 500 mL infusion Override Pull citric acid-sodium citrate (BICITRA) 500-334 MG/5ML solution Assessment/Plan: Cynthia Molina is a 39 y.o. female 23w3d Vaginal Bleeding - Endorsed VB at the start of 15 weeks 2/2 to hx of fibroid uterus - Presented to [facility] [place] for heavy VB with contractions and soaked through 1 maxi pad, Hgb 9.4 at [facility] - In OB triage SVE cl/th/hi; SSE [...] Cat II, or heavy vaginal bleeding - Lead Ruby On Rails Developer oncology aware and blood type and crossed on hold - Bleeding light this morning and overall Cat I Anemia - Hgb 9.6 on admission, down to 8.9 today - Consider IV iron Fibroid Uterus - per documentation from [facility]; 12x12 posterior mid and 6x6 cm left [...] side IUP @ 23w3d - Dating by tri U/S - Breech on 08/11 BSUS - [...] for hysterectomy at the time of delivery. Lead Ruby On Rails Developer oncology is aware of this patient Acute [...] AMA with clubfeet noted previously, ultrasound at [facility] office with good visualization of the [...] Paulson MD - 08/11/2020 7:19 PM EST [facility] review of tracing and plan of cares with being communication signals intelligence for the weekend. I have reviewed this [...] incision for delivery with vertical skin, have litigation examiner oncology on standby and plan for 2 IV lines and crossmatch for 4 units. Avoiding hysterectomy will be our goal if is required. 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 There was no evidence of cleft lip on that scan at [facility], but will alert NICUgiven the possibility on [...] would involve and the risks to the . Also explained that patient would need a [...] Patient is agreeable to plan. * Pushpa Bustillos, - 08/11/2020 6:29 AM EST Department of Obstetrics and Gynecology Labor and Delivery Triage Note CHIEF COMPLAINT: VB, fibroids HISTORY OF PRESENT ILLNESS: The patient is a 39 y.o. 23w2d. OB History No obstetric history on file. Patient presents with a chief complaint as above. Presents as a transfer from [place]. Reports a known history of fibroids for [...] slow down, the bleeding decreases. Presented to [facility] overnight due to abdominal pain not resolved with Tylenol and continued vaginal bleeding. Soaked [address] her way over to [facility] from [place]. Upon arrival, states her pain has completely resolved with the Tylenol she received in [place]. Continues to have vaginal bleeding. Denies DFM/CTX. [...] Georges DO - 11/09/2020 6:18 AM EST VACUUM CLEANER REPAIR PERSON Progress Note Date: 11/09/2020 Time: 6:18 AM [...] (!) 91/58 Pulse: 100 88 96 Resp: 18 18 16 Temp: 99 F (37.2 C) 97.4 F (36.3 C) 98.6 F (37 C) TempSrc: Temporal Temporal Temporal Temporal SpO2: 96% 97% 95% Weight: Height: Intake/Output: Last Shift: @[id number]@ Current Shift: I/O this shift: In: 500 [...] Q6H Stephanie Georges DO 1,000 mg at 11/09/20157 ondansetron (ZOFRAN-ODT) disintegrating tablet 4 mg 4 mg Oral Q8H PRN Stephanie Georges DO Or ondansetron (ZOFRAN) injection 4 mg 4 mg Intravenous Q6H PRN Stephanie Georges, DO oxyCODONE (ROXICODONE) immediate release tablet 5 mg 5 mg Oral Q4H PRN Stephanie Georges DO 5 mg at 11/09/208 Or oxyCODONE (ROXICODONE) immediate release tablet 10 mg 10 mg Oral Q4H PRN Stephanie Georges DO ibuprofen (ADVIL;MOTRIN) tablet 600 mg 600 mg Oral Q6H PRN Stephanie Georges DO docusate sodium (COLACE) capsule 100 mg 100 mg Oral BID PRN Stephanie Georges DO simethicone (MYLICON) chewable tablet 80 mg 80 mg Oral Q6H PRN Stephanie G Georges, DO Assessment/Plan: Cynthia Molina 39 y.o. female , POD #1 s/p TLH, cystoscopy - Doing well, vitals stable - Encourage ambulation and use of incentive spirometer - UOP adequate overnight - Pain controlled with tylenol, ibuprofen and oxycodone - DVT Proph:SCDs while in bed - Diet:General - ADAT - Disposition: Anticipate discharge home today pending discussion with attending physician. Stephanie Georges, 11/09/2020, 6:18 AM Associated attestation - Lovely [...] incentive spirometry If any issues overnight, page SALES SUPERVISOR communication signals intelligence, #[id number] * Isabel Brown RN - 11/08/2020 5:00 [...] cystoscopy, lysis of adhesions Surgeon: Dr. Freeman Assistant Federal Public Defender(s): Dr. Kay who was needed for instrument [...] section and content) DATE CREATED AUTHOR 05/13/2020 [facility] DATE CREATED AUTHOR AUTHOR'S ORGANIZ ATION 10/10/2020 [facility] DATE CREATED AUTHOR AUTHOR'S ORGANIZ ATION 11/12/2020 [facility] DATE CREATED AUTHOR AUTHOR'S ORGANIZ ATION 11/29/2022 [facility] DATE CREATED AUTHOR AUTHOR'S ORGANIZ ATION 08/03/2025 [facility] Reason for Visit (unrecogniz ed section and [...] BE BASED ON THE PRIMARY CLINICAL RECORDS. [facility] [employer] [facility]. provides no warranty or guarantee of the accuracy or completeness of information in this document.
== END | disposition home or self-care (01) ==
PROVIDERS: PCP Family Medicine; Referring Provider Nurse Practitioner Women's Health; Visit Provider Nurse Practitioner Women's Health
DX: R92.8 Other abnormal and inconclusive findings on diagnostic imaging of breast (principal)
CPT/HCPCS: 76642; 77061; 77065; G0279